=== PATIENT | female | born 1955 ===

== ENCOUNTER 2016-11-02 09:59 | Emergency (ER) | payer MEDICAID, MEDICARE, OTHER ==
[2016-11-02 10:09] VITALS: TEMP 97.8; BMI 21.9
--- NOTE | 2016-11-02 11:12 | ED PDOC ---
Arrival/HPI - General Chief Complaint: High Blood Pressure Time Seen by Provider: 11/02/16 10:25 Historian: Patient - History of Present Illness Narrative History of Present Illness (Text): 11/02/16 11:04 Patient with past medical history of diabetes and hypertension, reports of elevated high blood pressure states that she has not taken her medication enalapril 20 mg x 4 months because she was afraid that her insurance may have run out. Otherwise states that she feels well with no other complaints. Otherwise: (-) chest pain, (-) diaphoresis, (-) dyspnea, (-) headache, (-) dizziness, (-) syncope, (-) nausea, (-) vomiting, (-) calf swelling/pain, (-) neuro deficits. Past Medical History - Provider Review Nursing Documentation Reviewed: Yes - Cardiac Hx Hypertension: Yes - Endocrine/Metabolic Hx Diabetes Mellitus Type 2: Yes - Psychiatric Hx Substance Use: No - Surgical History Hx Hysterectomy: Yes Family/Social History - Physician Review Nursing Documentation Reviewed: Yes Family/Social History: No Known Family HX Smoking Status: Never Smoked Hx Alcohol Use: No Hx Substance Use: No Allergies/Home Meds Allergies/Adverse Reactions: Allergies No Known Allergies Allergy (Verified 11/02/16 10:09) Home Medications: Home Meds Medication Instructions Recorded Confirmed Enalapril Maleate [Vasotec] 20 mg PO DAILY 11/02/16 11/02/16 Insulin Aspart, Recombinant 10 units SC DAILY 11/02/16 11/02/16 [Novolog] Insulin Detemir [Levemir] 35 units SC DAILY 11/02/16 11/02/16 Review of Systems - Review of Systems Constitutional: Normal. absent: Fatigue, Weight Change, Fevers Respiratory: Normal. absent: SOB, Cough, Sputum Cardiovascular: Normal. absent: Chest Pain, Palpitations, Edema Gastrointestinal: Normal. absent: Abdominal Pain, Stool Changes, Constipation Musculoskeletal: Normal, Back Pain (prior back pain). absent: Arthralgias Skin: Normal. absent: Rash, Pruritis, Skin Lesions Neurological: Normal, Headache (prior headache). absent: Dizziness, Focal Weakness Physical Exam - Physical Exam Narrative Physical Exam (Text): 11/02/16 11:12 GENERAL APPEARANCE: Patient is awake, alert, oriented x 3, in no acute distress. SKIN: Warm, dry; (-) cyanosis. EYES: (-) conjunctival pallor. ENMT: Mucous membranes moist. NECK: (-) tenderness, (-) stiffness, (-) lymphadenopathy, (-) JVD. CHEST AND RESPIRATORY: (-) rash, (-) chest wall tenderness. Lungs: (-) rales , (-) rhonchi, (-) wheezes, (-) rub; breath sounds equal bilaterally. HEART AND CARDIOVASCULAR: (-) irregularity; (-) murmur, (-) gallop, (-) rub. ABDOMEN AND GI: Soft; (-) distention, (-) tenderness, (-) palpable pulsatile mass. EXTREMITIES: (-) deformity; (-) edema, (-) calf tenderness. (+) distal pulses. NEURO AND PSYCH: Mental status as above. Cranial nerves grossly intact; strength symmetric. Vital Signs Temp Pulse Resp BP Pulse Ox 11/02/16 11:53 83 16 194/87 H 96 11/02/16 10:04 97.8 F 90 18 204/97 H 99 Medical Decision Making ED Course and Treatment: 11/02/16 11:13 61 yo F with past medical history of diabetes and hypertension, presents with elevated blood pressure, admits to not taking her medication for the past 4 months. Patient medicated with lisinopril 20 mg PO. Repeat BP 194/87 On reevaluation, patient reports that she feels well, denies any headache, dizziness, chest pain, shortness of breath, or palpitations. Based on history and exam, plan will be for outpatient follow-up with PMD. Patient instructed on the importance of being compliant with her blood pressure medication and to avoid long periods of noncompliance as it can cause detrimental effects to her blood pressure which can lead to surgery and complications. Patient states she fully agrees with and understands discharge instructions. States that she agrees with the plan and disposition. Verbalized and repeated discharge instructions and plan. I have given the patient opportunity to ask any additional questions. Follow up with primary care physician in 1-2 days without fail. Advised to take medication as prescribed. Return to the emergency room at any time for any new or worsening symptoms. - Medication Orders Current Medication Orders: Discontinued Medications Lisinopril (Zestril) 20 mg PO STAT STA Stop: 11/02/16 10:45 Last Admin: 11/02/16 10:52 Dose: 20 mg - PA / DATA REPORT ANALYST / Resident Statement / has reviewed & agrees with the documentation as recorded. Disposition/Present on Arrival - Present on Arrival Any Indicators Present on Arrival: No History of DVT/PE: No History of Uncontrolled Diabetes: No Urinary Catheter: No History of Decub. Ulcer: No History Surgical Site Infection Following: None - Disposition Have Diagnosis and Disposition been Completed?: Yes Diagnosis: Hypertension Disposition: HOME/ ROUTINE Disposition Time: 12:08 Patient Plan: Discharge Patient Problems: Current Active Problems Problem Status Onset Hypertension Acute Condition: STABLE Discharge Instructions (ExitCare): Hypertension (ED) Print Language: INDONESIAN Additional Instructions: Thank you for letting us take care of you today. You were treated for hypertension. The emergency medical care you received today was directed at your acute symptoms. If you were prescribed any medication, please fill it and take as directed. It may take several days for your symptoms to resolve. Return to the Emergency Department if your symptoms worsen, do not improve, or if you have any other problems. Please contact your doctor in 2 days for re-evaluation and follow up. Bring any paperwork you were given at discharge with you along with any medications you are taking to your follow up visit. Our treatment cannot replace ongoing medical care by a primary care provider (PCP) outside of the emergency department. Thank you for allowing the [facility] team to be part of your care today. Prescriptions: Enalapril Maleate [Vasotec] 20 mg PO DAILY #30 tab Referrals: Samantha Camargo DO [Primary Care Provider] - Follow up with primary
[2016-11-02 11:57] VITALS: BP 194/87; PULSE 83; RESP 16; O2SAT 96
== END 2016-11-02 12:41 | disposition home or self-care (01) ==
LOC: ED 09:59
DX: I10 Essential (primary) hypertension (principal); E11.9 Type 2 diabetes mellitus without complications

== ENCOUNTER 2016-11-13 18:25 | Inpatient (IN) | payer MEDICARE, MEDICAID, OTHER ==
[2016-11-13 21:02] VITALS: BMI 23.4
[2016-11-13] MEDS ORDERED: Insulin Regular 1 UNITS/0.01 ML ML IVP STA (21:50)
[2016-11-13] MEDS ORDERED: Dextrose 50% SYRINGE Inj (50 ml) IVP ONE (21:50)
[2016-11-13] MEDS ORDERED: Sod Polystyrene Sulf 15 gm/60 ml Oral Susp PO STA (21:50)
[2016-11-13] MEDS ORDERED: Sodium Bicarbonate (8.4%) 50 Meq Syringe IVP ONE (21:50)
[2016-11-13 22:39] LABS: ALB/GLOB RATIO 1.1 (1.1-1.8); BILIRUBIN,TOTAL 0.5 mg/dL (0.2-1.3); CALCIUM 8.3 mg/dL (8.4-10.5); TOTAL PROTEIN 6.8 g/dL (5.8-8.3); TROPONIN I 0.06 ng/mL
[2016-11-13 22:42] LABS: POTASSIUM 5.6 mmol/L (3.6-5.0)
--- NOTE | 2016-11-13 23:25 | CP.PCM.HP ---
<Homa Nieto - Last Filed: 11/14/16 01:52> History of Present Illness - History of Present Illness History of Present Illness: 61 year old Belarusian speaking female with past medical history of hypertension, diabetes, hypercholesterolemia presents to [facility] ED complaining of bilateral lower extremity swelling. Patient reports all of her symptoms started 5 days ago suddenly. Patient also complains of having abdominal discomfort, decreased appetite, shortness of breath and NBNB vomiting. Patient states she was able to walk for a long distance, but now she becomes SOB after walking less than 1 block. Patient sleeps with one pillow at night. Patient states she never had any cardiac testing done except for EKG. In the ED [place] [address], potassium of 5.7, elevated BUN/Cr and hemoglobin of 7.1. Denies headache, weakness, fever, chills, chest pain, orthapnea, diarrhea, blood or black colored stools or urinary symptoms. PMD: Dr. Camargo PMHx: hypertension, diabetes, hypercholesterolemia PSHx: hysterectomy Allergy: NKDA Social: denies tobacco, alcohol or other drug use Family hx: unknown Home meds: enalapril Present on Admission - Present on Admission Any Indicators Present on Admission: No History of DVT/PE: No History of Uncontrolled Diabetes: No Review of Systems - Constitutional Constitutional: As Per HPI. absent: Chills, Fever, Headache, Increased Appetite - EENT Eyes: As Per HPI. absent: Blurred Vision, Change in Vision Ears: As Per HPI. absent: Dizziness Nose/Mouth/Throat: As Per HPI. absent: Epistaxis, Nasal Congestion, Nasal Discharge - Cardiovascular Cardiovascular: As Per HPI, Dyspnea, Leg Edema, Paroxysmal Nocturnal Dyspnea. absent: Chest Pain, Orthopnea, Palpitations, Syncope - Respiratory Respiratory: As Per HPI, Dyspnea, Dyspnea on Exertion. absent: Cough, Wheezing - Gastrointestinal Gastrointestinal: As Per HPI, Abdominal Pain, Nausea, Vomiting. absent: Diarrhea, Heartburn - Genitourinary Genitourinary: As Per HPI. absent: Urinary Frequency, Urinary Hesitance, Urinary Urgency - Musculoskeletal Musculoskeletal: As Per HPI - Integumentary Integumentary: As Per HPI. absent: Dry Skin, Erythema - Neurological Neurological: As Per HPI. absent: Dizziness, Numbness, Loss of Vision, Syncope , Tremor - Psychiatric Psychiatric: As Per HPI. absent: Anxiety, Confusion, Depression - Endocrine Endocrine: As Per HPI - Hematologic/Lymphatic Hematologic: As Per HPI Past Patient History - Past Social History Smoking Status: Never Smoked - CARDIAC Hx Hypertension: Yes - ENDOCRINE/METABOLIC Hx Diabetes Mellitus Type 2: Yes - PSYCHIATRIC Hx Substance Use: No - SURGICAL HISTORY Hx Hysterectomy: Yes Meds Allergies/Adverse Reactions: Allergies Allergy/AdvReac Type Severity Reaction Status Date / Time No Known Allergies Allergy Verified 11/02/16 10:09 Physical Exam - Constitutional Appears: Non-toxic, No Acute Distress - Head Exam Head Exam: ATRAUMATIC, NORMAL INSPECTION, NORMOCEPHALIC - Eye Exam Eye Exam: EOMI, Normal appearance, PERRL - ENT Exam ENT Exam: Mucous Membranes Moist - Neck Exam Neck exam: Positive for: Normal Inspection - Respiratory Exam Respiratory Exam: NORMAL BREATHING PATTERN. absent: Clear to Auscultation Bilateral (diffuse crackles), Wheezes, Respiratory Distress - Cardiovascular Exam Cardiovascular Exam: REGULAR RHYTHM, RRR, +S1, +S2 - GI/Abdominal Exam GI & Abdominal Exam: Normal Bowel Sounds, Soft. absent: Tenderness - Extremities Exam Extremities exam: Positive for: normal capillary refill, pedal edema (trace bilateral LE edema), pedal pulses present - Back Exam Back exam: NORMAL INSPECTION - Neurological Exam Neurological exam: Alert, Oriented x3 - Psychiatric Exam Psychiatric exam: Normal Affect, Normal Mood - Skin Skin Exam: Dry, Intact, Normal Color, Warm Results - Labs Result Diagrams: 11/13/16 20:40 Labs: Laboratory Results - last 24 hr 11/13/16 20:40 Sodium 138 Potassium 5.6 H* Chloride 103 Carbon Dioxide 19 L Anion Gap 22 H BUN 112 H Creatinine 11.0 H* Est GFR ( Amer) 4 Est GFR (Non-Af Amer) 4 Random Glucose 95 Calcium 8.3 L Total Bilirubin 0.5 AST 100 H ALT 145 H Alkaline Phosphatase 123 Lactate Dehydrogenase 909 H Total Creatine Kinase 370 H CK-MB (CK-2) 5.2 H CK-MB (CK-2) % 1.4 L Troponin I 0.06 NT-Pro-B Natriuret Pep 75413 H Total Protein 6.8 Albumin 3.5 Globulin 3.3 Albumin/Globulin Ratio 1.1 Lipase 116 Assessment & Plan - Assessment and Plan (Free Text) Assessment: 61 year old female with past medical history of DM, HTN, hypercholesterolemia was admitted for new onset of CHF, acute renal failure, and hyperkalemia Plan: CHF, new onset -[place] ED [address] -CXR showed vascular congestion -Lasix 120mg IV given at ED -Lasix 80mg IV bid -I's and O's -HOB at 30 degree -Daily weight -O2 NC maintain sat >90% -Troponin 0.06, repeats pending -Cardiology consult, Dr. Batres help appreciated -Follow up echocardiogram Acute renal failure -BUN/Cr 112/11 -Renal ultrasound r/o hydronephrosis -Woods in place -Nephrology consult, Dr. Molina help appreciated -Follow up labs Hyperkalemia -K 5.7 in ED -Kayexalate given -Continue to monitor Anemia -Hgb 7.1 -No transfusion, prevent worsening CHF -Continue to monitor for symptoms DM -ISS -Follow up A1c -Consistent carb diet Hypertension -Hold Enalapril -Hydralazine 10mg prn Prophylactic measures -Pepcid 20mg -Heparin 5000unit SC Q12 <Omid Suero MD - Last Filed: 11/14/16 08:23> Results - Vital Signs Recent Vital Signs: Last Vital Signs Temp 98.3 F 11/14/16 02:43 Pulse 86 11/14/16 02:43 Resp 16 11/14/16 02:43 BP 162/85 H 11/14/16 02:43 Pulse Ox 98 11/14/16 02:43 - Labs Result Diagrams: 11/13/16 20:40 Attending/Attestation - Attestation I have personally seen and examined this patient.: Yes I have fully participated in the care of the patient.: Yes I have reviewed all pertinent clinical information: Yes Notes (Text): 11/14/16 08:11 -I agree with the above H&P completed by the resident physician with the following changes and/or additions: The patient is a 61 year old woman with a history of long standing IDDM, poorly HTN and dyslipidemia who presents with 5-6 days worsening SOB/GONZALEZ, PND, and bilateral lower extremity edema. She denies chest pain, orthopnea, recent travel , F/C, urinary abnormalities, black or bloody stool or cough. In the ED, she was found to have numerous labs abnormalities including, FBI=743, Cr=11.1, K= 5.6 and BNP=57,000. Also, her CXR done in the ED shows evidence of pulmonary edema. A Woods catheter was placed with about 175cc of clear urine returning. Consequently, given her markedly elevated serum Cr alongside clinical evidence of fluid overload, she was given Lasix 120mg IV x 1. Also, for her elevated potassium, she received Kayexalate 30g x 1. Multiple lab orders were placed ( including BMP's, magnesium, phos etc), throughout the night in order to monitor the patient's response to diuresis and the Kayexalate. However, unfortunately, for reasons unclear, the lab was unable to carry out any of the requested lab draws. Her systolic blood pressure has been remained in the 150's (manually checked by me overnight, multiple times). Otherwise, her O2 sats, RR and HR have all remained relatively normal. Strict I/O's, daily weights, cardiology consult, nephrology consult, 2D-echo, renal U/S, urine lytes, urine eosinophils have all been ordered. 11/14/16 08:22
[2016-11-14] MEDS ORDERED: Insulin Lispro (humaLOG) MEDIUM Coverage SC SCH (07:30)
[2016-11-14 08:23] LABS: ADD MANUAL DIFF? NO
[2016-11-14 08:34] LABS: BASO # 0.03 K/mm3 (0.0-2.0); BASO % 0.5 % (0.0-3.0); EOS # 0.1 (0.0-0.7); EOS % 1.8 % (1.5-5.0); GRAN # 3.23 (1.4-6.5); GRAN % 57.9 % (50.0-68.0); LYMPH # 1.8 (1.2-3.4); LYMPH % 32.6 % (22.0-35.0); MEAN CELL VOLUME 71.1 fL (80.0-105.0); MEAN CORPUSCULAR HEMOGLOBIN 25.2 pg (25.0-35.0); MEAN CORPUSCULAR HGB CONC 35.4 g/dl (31.0-37.0); MONO # 0.4 (0.1-0.6); MONO % 7.2 % (1.0-6.0); PLATELET COUNT 174 10^3/uL (120.0-450.0); RED CELL DISTRIBUTION WIDTH 14.8 % (11.5-14.5); WHITE BLOOD COUNT 5.6 10^3/ul (4.5-11.0)
[2016-11-14 08:52] LABS: BILIRUBIN,TOTAL 0.5 mg/dL (0.2-1.3); MAGNESIUM 1.7 mg/dL (1.7-2.2); PHOSPHOROUS 6.5 mg/dL (2.5-4.5); POTASSIUM 5.2 mmol/L (3.6-5.0); TOTAL PROTEIN 6.2 g/dL (5.8-8.3)
[2016-11-14 09:03] LABS: TROPONIN I 0.08 ng/mL
[2016-11-14 09:14] LABS: HEMATOCRIT 18.9 % (36.0-48.0)
--- NOTE | 2016-11-14 09:24 | RAD ---
HISTORY: sob COMPARISON: No prior. FINDINGS: LUNGS: There is a minimal infiltrate at the right lung base. PLEURA: Small bilateral pleural effusions CARDIOVASCULAR: Normal. OSSEOUS STRUCTURES: No significant abnormalities. VISUALIZED UPPER ABDOMEN: Normal. OTHER FINDINGS: None. IMPRESSION: Minimal infiltrate at the right lung base
--- NOTE | 2016-11-14 09:52 | US ---
PROCEDURE: Ultrasound of the Kidneys HISTORY: r/o hydronephrosis COMPARISON: None available. TECHNIQUE: Sonogram of the kidneys. FINDINGS: RIGHT KIDNEY: Measures: 3.9 x 4.4 x 8.0 cm. Normal in size, contour and echogenicity. No stone, solid mass lesion or hydronephrosis visualized. LEFT KIDNEY: Measures: 4.1 x 4.2 x 7.8 cm. Normal in size, contour and echogenicity. No stone, solid mass lesion or hydronephrosis visualized. OTHER FINDINGS: None. IMPRESSION: Unremarkable renal sonogram.
[2016-11-14 09:57] LABS: ARTERIAL BLOOD GAS HCO3 20.3 mmol/L (21-28); ARTERIAL BLOOD GAS O2 CAPACITY 9.5 mL/dl (16-24); ARTERIAL BLOOD GAS PH 7.36 (7.35-7.45); ARTERIAL BLOOD HGB O2 SAT 91.6 % (95.0-98.0); CARBOXYHEMOGLOBIN 1.7 % (0.5-1.5); HHB 5.5 % (0-5); METHEMOGLOBIN 1.1 % (0.0-3.0)
[2016-11-14 10:50] LABS: MEAN CELL VOLUME 71.6 fL (80.0-105.0); MEAN CORPUSCULAR HEMOGLOBIN 24.6 pg (25.0-35.0); MEAN CORPUSCULAR HGB CONC 34.3 g/dl (31.0-37.0); MEAN PLATELET VOLUME 10.3 fl (7.0-11.0); RED CELL DISTRIBUTION WIDTH 14.6 % (11.5-14.5); WHITE BLOOD COUNT 6.4 10^3/ul (4.5-11.0)
[2016-11-14 10:52] LABS: HEMATOCRIT 20.7 % (36.0-48.0)
[2016-11-14] MEDS ORDERED: Lidocaine 2% Inj (20ml) ONE (11:20)
[2016-11-14] MEDS ORDERED: Midazolam 2 MG/2 ML VIAL ONE ×2 (11:21→12:29)
--- NOTE | 2016-11-14 11:57 | CP.PCM.CON ---
History of Present Illness - History of Present Illness History of Present Illness: Initial Nephrology Consultation: Assessment: Appears to have likely ESRD with uremia as with severe anemia, Hyperphosphatemia , NAGMA, fluid overload. Long standing hx of DM, Hypertension no prior labs available to compare Plan Indicated emergent renal replacement therapy at this time. Will plan for HD today as ordered with 2 K bath for 2 hours and ultrafiltration goal of 2Kgs. IR consulted for permacath insertion as likely will need correction dialysis access 1 unit PRBC with HD can be given. decision for iron and DU based upon iron indices Hypertension control with meds as ordered. Hold ACEI/ARB due to hyperkalemia Monitor Input/Output, daily weights and renal function with basic metabolic panel, CBC, phos Check urine analysis, spot protein/creatinine and albumin/creatinine ratio Check for 25-OH vitamin D, iPTH, phosphorus level. anemia work up with TSAT, Ferritin, serum protein electrophoresis Check prelim GN work up as C3, C4, JOSE ALBERTO, Anti dsDNA, ANCA (MPO and AR-3), serum protein electrophoresis with immunofixation, HIV/Hep B and Hep C serology. if all negative, unlikely to pursue invasive work up such as kidney biopsy. Dose meds/antibiotics for reduced GFR. Avoid fleets enema/magnesium based laxatives. Avoid nephrotoxins/NSAIDs/ iodinated contrast (unless needed emergently). Glycemic control. Further work up for as per primary team. d/w team Thanks for allowing me to participate in care of your patient. Will follow patient with you. Please call if any Qs Dr Delroy Miller Office: [phone] Chief Complaint; nausea/vomiting HPI: Pt is a 61 y/o with F hx of diabetes Mellitus ( x 20 years) with retinopathy, hypertension (x 10 years) presented with complaints of nausea/ vomiting, decreased appetite, leg swelling x 5 days. also has SOB on exertion and somewhat decreased urine output. Denies chest pain, palpitation, has shortness of breath, leg swelling Denies blood or bubbles in urine Denies OTC/herbal meds or NSAIDs No recent iodinated contrast exposure. No obvious episodes of low BP. she had poor follow ups with her MD. as per primary team, she used to have very BP in doctors office whenever there. no f/up for last 2 years. ROS: Constitutional Symptoms: Denies fever. No chills. No Recent Weight Changes Eyes: denies change in vision, denies watery eyes, denies double vision Ears/Nose/Mouth/Throat: Denies Abnormal Taste. No Bad breath or Bad Taste. Cardiovascular: No chest pain. There is c/o shortness of breath. No palpitations. Pulmonary: c/o shortness of breath no cough. Gastrointestinal: c/o abdominal pain with nausea and vomiting. Denies change in bowel habits. Denies Bleeding Genitourinary: No Change in force of strain when urinating. c/o decrease in urinary frequency. No pain while urinating. Denies blood in urine. Neurological: Denies headaches. No dizziness. Denies loss of balance. Denies weakness, denies tingling/numbness Dermatological: No Rash or Bruising or ulcers. Psychiatric: Denies Anxiety. No depression. Denies hallucinations. Rheumatological: No joint pain. Denies Joint swelling. c/o leg swelling Endocrine: c/o tiredness and Fatigue and denies Heat/Cold Intolerance. Physical Examination: General Appearance: Comfortable, in no acute respiratory distress, co-operative . Vitals reviewed and noted as below Head; Atraumatic, normocephalic ENT: no ulcers no thrush. Tongue is midline. Oropharynx: no rash or ulcers. EYES: Pupils are equal, round and reactive to light accommodation. Eye muscles and extraocular movement intact. Sclera is anicteric. has pallor+ Neck; supple no lymphadenopathy, no thyromegaly or bruit Lungs: Normal respiratory rate/effort. Breath sounds bilateral basal crackles + Heart: Normal rate. s1s2 normal. No rub or gallop. Extremities: no to trace edema. No varicose veins Neurological: Patient is alert, awake and oriented to person, place and time. No focal deficit. Strength bilateral appropriate and equal Skin: Warm and dry. Normal turgor. No rash. Palpitation: Normal elasticity for age Abdomen: Abdomen is soft. Bowel sounds +. There is no abdominal tenderness, no guarding/rigidity or organomegaly Psych: normal insight and normal affect/mood MSK: no joint tenderness or swelling. Digits and nails normal, no deformity : kidney or bladder not palpable Labs/imaging reviewed. Past medical history, past surgical history, family history, social history, allergy reviewed and noted as below work up: CPK 313 Alb 3.2 Hb 6.7 Phos 6.5 CXR: minimal infiltrate at base sono: Rt kidney 7.9 cm and left 7.c cm Past Patient History - Past Social History Smoking Status: Never Smoked - CARDIAC Hx Hypertension: Yes - ENDOCRINE/METABOLIC Hx Diabetes Mellitus Type 2: Yes - PSYCHIATRIC Hx Substance Use: No - SURGICAL HISTORY Hx Hysterectomy: Yes Meds Allergies/Adverse Reactions: Allergies Allergy/AdvReac Type Severity Reaction Status Date / Time No Known Allergies Allergy Verified 11/02/16 10:09 - Medications Medications: Current Medications Aspirin (Aspirin Chewable) 81 mg PO DAILY [facility] Last Admin: 11/14/16 10:30 Dose: 81 mg Famotidine (Pepcid) 20 mg IVP DAILY [facility] Last Admin: 11/14/16 10:30 Dose: 20 mg Furosemide (Lasix) 40 mg IVP BID [facility] Heparin Sodium (Porcine) (Heparin) 5,000 units SC Q12 [place] PRN Reason: Protocol Last Admin: 11/14/16 10:30 Dose: Not Given Hydralazine HCl (Apresoline) 10 mg IVP Q6 PRN PRN Reason: Systolic Blood Pressure Insulin Human Lispro (Humalog Med) 0 units SC ACHS [place] PRN Reason: Protocol Vitamin B Complex/Vit C/Folic Acid (Nephro-Mini) 1 tab PO DAILY [facility] Results - Vital Signs Recent Vital Signs: Last Vital Signs Temp 98.0 F 11/14/16 09:01 Pulse 76 11/14/16 11:00 Resp 16 11/14/16 11:00 BP 161/85 H 11/14/16 11:00 Pulse Ox 100 11/14/16 11:00 - Labs Result Diagrams: 11/14/16 08:15 11/14/16 08:15 Labs: Laboratory Results - last 24 hr 11/14/16 11/14/16 11/14/16 02:35 08:15 08:15 WBC 5.6 RBC 2.66 L Hgb 6.7 L* Hct 18.9 L* MCV 71.1 L MCH 25.2 MCHC 35.4 RDW 14.8 H Plt Count 174 MPV 10.0 Gran % 57.9 Lymph % (Auto) 32.6 Gilchrist % (Auto) 7.2 H Eos % (Auto) 1.8 Baso % (Auto) 0.5 Gran # 3.23 Lymph # 1.8 Gilchrist # 0.4 Eos # 0.1 Baso # 0.03 pCO2 pO2 HCO3 ABG pH ABG Total CO2 ABG O2 Saturation ABG O2 Content ABG Base Excess ABG Hemoglobin ABG Carboxyhemoglobin POC ABG HHb (Measured) ABG Methemoglobin ABG O2 Capacity Hgb O2 Saturation FiO2 Sodium Potassium Chloride Carbon Dioxide Anion Gap BUN Creatinine Est GFR ( Amer) Est GFR (Non-Af Amer) Random Glucose Calcium Phosphorus Magnesium Total Bilirubin AST ALT Alkaline Phosphatase Lactate Dehydrogenase Total Creatine Kinase CK-MB (CK-2) CK-MB (CK-2) % Troponin I Total Protein Albumin Globulin Albumin/Globulin Ratio Triglycerides Cholesterol LDL Cholesterol Direct HDL Cholesterol TSH 3rd Generation 2.89 Ur Random Creatinine 45 Ur Random Sodium 104 Blood Type Blood Type Confirm Antibody Screen Crossmatch BBK History Checked 11/14/16 11/14/16 11/14/16 08:15 09:50 10:04 WBC RBC Hgb Hct MCV MCH MCHC RDW Plt Count MPV Gran % Lymph % (Auto) Gilchrist % (Auto) Eos % (Auto) Baso % (Auto) Gran # Lymph # Gilchrist # Eos # Baso # pCO2 36 pO2 59.0 L HCO3 20.3 L ABG pH 7.36 ABG Total CO2 21.4 L ABG O2 Saturation 94.3 L ABG O2 Content 9.0 L ABG Base Excess -4.7 L ABG Hemoglobin 6.9 L ABG Carboxyhemoglobin 1.7 H POC ABG HHb (Measured) 5.5 H ABG Methemoglobin 1.1 ABG O2 Capacity 9.5 L Hgb O2 Saturation 91.6 L FiO2 21.0 Sodium 141 Potassium 5.2 H Chloride 107 Carbon Dioxide 19 L Anion Gap 20 BUN 111 H Creatinine 11.1 H* Est GFR ( Amer) 4 Est GFR (Non-Af Amer) 3 Random Glucose 70 Calcium 8.0 L Phosphorus 6.5 H Magnesium 1.7 Total Bilirubin 0.5 AST 69 H ALT 120 H Alkaline Phosphatase 107 Lactate Dehydrogenase 715 H Total Creatine Kinase 313 H CK-MB (CK-2) 4.2 H CK-MB (CK-2) % 1.3 L Troponin I 0.08 D Total Protein 6.2 Albumin 3.2 Globulin 3.1 Albumin/Globulin Ratio 1.0 L Triglycerides 82 Cholesterol 145 LDL Cholesterol Direct 75 HDL Cholesterol 36 TSH 3rd Generation Ur Random Creatinine Ur Random Sodium Blood Type A POSITIVE Blood Type Confirm Antibody Screen Negative Crossmatch See Detail BBK History Checked No verified bt 11/14/16 10:25 WBC RBC Hgb Hct MCV MCH MCHC RDW Plt Count MPV Gran % Lymph % (Auto) Gilchrist % (Auto) Eos % (Auto) Baso % (Auto) Gran # Lymph # Gilchrist # Eos # Baso # pCO2 pO2 HCO3 ABG pH ABG Total CO2 ABG O2 Saturation ABG O2 Content ABG Base Excess ABG Hemoglobin ABG Carboxyhemoglobin POC ABG HHb (Measured) ABG Methemoglobin ABG O2 Capacity Hgb O2 Saturation FiO2 Sodium Potassium Chloride Carbon Dioxide Anion Gap BUN Creatinine Est GFR ( Amer) Est GFR (Non-Af Amer) Random Glucose Calcium Phosphorus Magnesium Total Bilirubin AST ALT Alkaline Phosphatase Lactate Dehydrogenase Total Creatine Kinase CK-MB (CK-2) CK-MB (CK-2) % Troponin I Total Protein Albumin Globulin Albumin/Globulin Ratio Triglycerides Cholesterol LDL Cholesterol Direct HDL Cholesterol TSH 3rd Generation Ur Random Creatinine Ur Random Sodium Blood Type Blood Type Confirm A POSITIVE Antibody Screen Crossmatch BBK History Checked
--- NOTE | 2016-11-14 13:59 | CP.PCM.PN ---
<Darlin Donaldson - Last Filed: 11/14/16 13:56> Subjective - Date & Time of Evaluation Date of Evaluation: 11/14/16 Time of Evaluation: 13:56 - Subjective Subjective: HOSPITALISTS PROGRESS NOTE Pt is seen and examined. Patient is admitted for acute CHF exacerbation, found to be in renal failure and anemic with repeat Hgb at 6.7. Communicated with patient through a geotechnical field technician. At time of examination, patient is resting comfortably. Denies having any CP, SOB, abd pain, N/V/D/C, urinary complaints. Patient states she had bowel movement while in ED and she has jerry in place draining light yellow urine. Patient is tolerating diet. Objective - Vital Signs/Intake and Output Vital Signs (last 24 hours): Temp Pulse Resp BP Pulse Ox 97.7 F 75 23 152/79 H 98 11/14/16 13:02 11/14/16 13:47 11/14/16 13:47 11/14/16 13:47 11/14/16 13:47 Intake and Output: 11/14/16 11/14/16 06:59 18:59 Output Total 425 Balance -425 - Medications Medications: Current Medications Acetaminophen (Tylenol 325mg Tab) 650 mg PO Q4 PRN PRN Reason: Pain, Mild (1-3) Aspirin (Aspirin Chewable) 81 mg PO DAILY [facility] Last Admin: 11/14/16 10:30 Dose: 81 mg Famotidine (Pepcid) 20 mg IVP DAILY [facility] Last Admin: 11/14/16 10:30 Dose: 20 mg Furosemide (Lasix) 40 mg IVP BID [facility] Heparin Sodium (Porcine) (Heparin) 5,000 units SC Q12 [facility] PRN Reason: Protocol Last Admin: 11/14/16 10:30 Dose: Not Given Hydralazine HCl (Apresoline) 10 mg IVP Q6 PRN PRN Reason: Systolic Blood Pressure Insulin Human Lispro (Humalog Med) 0 units SC ACHS [facility] PRN Reason: Protocol Vitamin B Complex/Vit C/Folic Acid (Nephro-Mini) 1 tab PO DAILY [facility] - Labs Labs: 11/14/16 08:15 11/14/16 08:15 - Constitutional Appears: Non-toxic, No Acute Distress - Head Exam Head Exam: ATRAUMATIC - Eye Exam Eye Exam: EOMI - ENT Exam ENT Exam: Mucous Membranes Moist - Respiratory Exam Respiratory Exam: Rales (Diffusely ). absent: Rhonchi, Wheezes - Cardiovascular Exam Cardiovascular Exam: REGULAR RHYTHM, +S1, +S2. absent: Gallop, Rubs, Murmur - GI/Abdominal Exam GI & Abdominal Exam: Soft, Normal Bowel Sounds. absent: Distended, Firm, Guarding, Rigid, Tenderness - Extremities Exam Extremities Exam: Pedal Edema (1+ LE edema) - Neurological Exam Neurological Exam: Alert, Awake, Oriented x3 - Psychiatric Exam Psychiatric exam: Normal Affect, Normal Mood - Skin Skin Exam: Dry, Intact, Normal Color, Warm Assessment and Plan - Assessment and Plan (Free Text) Assessment: 61 year old female with past medical history of DM, HTN, hypercholesterolemia is admitted for new onset of CHF, acute renal failure, and hyperkalemia[place] [address]. CXR on admission showed vascular congestion. Initial trops are .[address] changes noted on EKG. K+ on admission was 5.6. Repeat K+ level after treatment given was 5.2. Patient presented with BUN of 112 and Cr of 11.0. After speaking with patient's PMD, patient had Cr function of 1.9 about 2 years ago. Apparently, patient has not had follow up for about 2 years. Medications 2 years ago included: Coreg 6.25 mg po qd, ferrous sulfate 324 mg po qd, novolog 8 units tid, levemir. Plan: CHF, new onset - Patient received Lasix 120 mg IVP in ED. Will start patient on Lasix 40 mg IV BID -I's and O's -HOB at 30 degree -Daily weight -O2 NC maintain sat >90% -Cardiology consult, Dr. Batres help appreciated -Follow up echocardiogram Acute renal failure -BUN/Cr 112/11 - Nephrology, Dr. Berman is consulted. - Per nephrology recs, patient is taken for permcath placement today. Patient will go for HD today. -Renal ultrasound r/o hydronephrosis - will follow up renal studies Hyperkalemia -Patient did not have any EKg changes noted - Patient received kayexelate in ED. She also received insulin stat dose along with bicarb and lasix. - repeat K+ was 5.2 - Patient will go HD today -Continue to monitor Anemia - Stool occult at bedside was negative. - patient will receive 1 unit PRBC transfusion after permcath placement. - will check repeat CBC this evening - Will check iron studies and vit B12 and folate - Will wait to restart patient's home medication ferrous sulfate. DM -ISS -Follow up A1c and lipid panel -Consistent carb diet Hypertension -Hold Enalapril -Hydralazine 10mg prn. Patient used ot take coreg 6.25 mg po qd. will continue this medication. Hep C infection -Patient will be given information upon discharge for follow up outpatient with GI specialist at [place] Prophylactic measures -Pepcid 20mg -Heparin 5000unit SC Q12 Case discussed with attending, Dr. Valadez <Lavon Valadez - Last Filed: 11/14/16 17:10> Objective - Vital Signs/Intake and Output Vital Signs (last 24 hours): Temp Pulse Resp BP Pulse Ox 98.4 F 79 31 H 158/78 H 93 L 11/14/16 16:52 11/14/16 16:52 11/14/16 16:52 11/14/16 16:52 11/14/16 15:47 Intake and Output: 11/14/16 11/14/16 06:59 18:59 Output Total 425 Balance -425 - Medications Medications: Current Medications Acetaminophen (Tylenol 325mg Tab) 650 mg PO Q4 PRN PRN Reason: Pain, Mild (1-3) Last Admin: 11/14/16 14:06 Dose: 650 mg Carvedilol (Coreg) 6.25 mg PO DAILY [facility] Famotidine (Pepcid) 20 mg IVP DAILY [facility] Last Admin: 11/14/16 10:30 Dose: 20 mg Furosemide (Lasix) 40 mg IVP BID [facility] Heparin Sodium (Porcine) (Heparin) 5,000 units SC Q12 [facility] PRN Reason: Protocol Last Admin: 11/14/16 10:30 Dose: Not Given Hydralazine HCl (Apresoline) 10 mg IVP Q6 PRN PRN Reason: Systolic Blood Pressure Insulin Human Lispro (Humalog Med) 0 units SC ACHS [facility] PRN Reason: Protocol Pneumococcal Polyvalent Vaccine (Pneumovax 23 Vaccine) 0.5 ml IM .ONCE ONE Stop: 11/14/16 17:04 Vitamin B Complex/Vit C/Folic Acid (Nephro-Mini) 1 tab PO DAILY [facility] - Labs Labs: 11/14/16 08:15 11/14/16 08:15 Attending/Attestation - Attestation I have personally seen and examined this patient.: Yes I have fully participated in the care of the patient.: Yes I have reviewed all pertinent clinical information, including history, physical exam and plan: Yes Notes (Text): 11/14/16 17:05 Attending note; Patient seen and examined with resident in ER. Patient's grandson by the bedside. History by Liberian-speaking medical staff. Patient is a 61 year old female with past medical history of DM, HTN, hypercholesterolemia is admitted for new onset of CHF, acute renal failure, and hyperkalemia[place] [address]. CXR on admission showed vascular congestion. EKG showed no peaked T waves or QRS widening .Treated with insulin/bicarbonate and Kayexalate. Patient was given IV Lasix with good diuresis. Patient will get dialysis catheter placement by IR. Planned for Hemodialysis today. Anemia; no active bleeding. Baseline hemoglobin was 10 in 2015. We'll transfuse 1 unit of PRBC during dialysis. Anemia workup ordered. Stool for occult blood ordered. Elevated BNP; history of uncontrolled blood pressure. Echocardiogram ordered. Cardiology evaluation requested. History of CAD; creatinine was 1.9 in July [address] Camargo's office. Patient is noncompliant with follow-up. Did not take hypertensive or diabetic medication over 2 years. Stayed in [facility] for about a year. Came back to [facility] recently. The diagnosis, treatment plan discussed with patient in detail. Upon discharge the patient will follow up with PMD Dr. Camargo.
--- NOTE | 2016-11-14 14:33 | VASCULAR ---
PROCEDURE: Ultrasound and fluoroscopic tunneled right IJ dialysis catheter. CLINICAL HISTORY: ESRD PHYSICIAN(S): Ismael Boggs M.D. TECHNIQUE: The relative risks and indications for the procedure were explained through a electronic news gathering camera person to the patient and informed written consent obtained. The patient was placed supine on the arteriography table and the right neck/chest was prepped and draped in the usual sterile fashion. 1% Xylocaine was used to anesthetize the skin and soft tissues at the puncture site. Conscious sedation and monitoring were provided throughout the procedure by a nurse. Under direct ultrasound guidance, the rightinternal jugular vein was punctured with a micropuncture set. A 0.035 Glidewire was advanced into the IVC. Sequential dilatation was performed with subsequent placement of a 24 cmCannon II catheter with its tip in the right atrium. A retrograde tunnel below the right clavicle was performed. The catheter was trimmed and the hub attached. Both ports aspirate and inject easily. The catheter was secured and a dressing applied. The patient tolerated the procedure well. IMPRESSION: 1. Ultrasound and fluoroscopically placed right IJ tunneled dialysis catheter.
[2016-11-14] MEDS ORDERED: Pneumococcal 23-Valent Vaccine IM ONE (17:03)
[2016-11-14] MEDS: Insulin Lispro (humaLOG) MEDIUM Coverage SC SCH ×2 (17:47→22:00)
--- NOTE | 2016-11-14 18:06 | CP.PCM.CON ---
<Jabari Aguirre - Last Filed: 11/14/16 18:02> History of Present Illness - History of Present Illness History of Present Illness: Jabari Aguirre D.O. PGY-1, Internal Medicine Resident, ICU Consult Note 61 year old [place]i female with a longstanding history of DM, HTN, and HLD who presented to [facility] on 11/13/16 with complaints of shortness of breath, weakness and leg swelling. Patient states that her SOB had been progressively getting worse and while she used to be able to walk around without difficulty she's noticed she can't do much anymore. Patient estimates she can maybe walk a block before she gets tired. Patient states that over the last week now her legs have also gotten swollen and she's noticed she's just fatigued and unable to do very much. Patient's legs continued to swell. Patient had some nausea and NBNB emesis over the last couple of days as well and this all made her worried so she came in. PMD: Dr. Camargo PMH: as above PSH: hysterectomy SH: denies all FH: denies Meds: reviewed Allergies: NKA Review of Systems - Constitutional Constitutional: absent: Anorexia, Chills - EENT Eyes: absent: Blind Spots, Blurred Vision Ears: absent: Decreased Hearing, Ear Discharge Nose/Mouth/Throat: absent: Epistaxis, Nasal Congestion - Cardiovascular Cardiovascular: absent: Chest Pain, Diaphoresis - Respiratory Respiratory: Dyspnea, Dyspnea on Exertion - Gastrointestinal Gastrointestinal: absent: Nausea (resolved), Vomiting - Genitourinary Genitourinary: absent: Dysuria, Hematuria - Musculoskeletal Musculoskeletal: absent: Numbness, Stiffness - Integumentary Integumentary: absent: Pruritus, Rash - Neurological Neurological: absent: Confusion, Focal Weakness Past Patient History - Past Social History Smoking Status: Never Smoked - CARDIAC Hx Hypercholesterolemia: Yes Hx Hypertension: Yes - RENAL Date of Last Dialysis Treatment: 11/14/16 - ENDOCRINE/METABOLIC Hx Diabetes Mellitus Type 2: Yes - MUSCULOSKELETAL/RHEUMATOLOGICAL Hx Falls: No - GASTROINTESTINAL Hx Gastrointestinal Disorders: Yes (constipation) - GENITOURINARY/GYNECOLOGICAL Other/Comment: mammogram 08/23/15, bone density - PSYCHIATRIC Hx Substance Use: No - SURGICAL HISTORY Hx Hysterectomy: Yes Other/Comment: insertion of rcw permacath today for hd Meds Allergies/Adverse Reactions: Allergies Allergy/AdvReac Type Severity Reaction Status Date / Time No Known Allergies Allergy Verified 11/02/16 10:09 - Medications Medications: Current Medications Acetaminophen (Tylenol 325mg Tab) 650 mg PO Q4 PRN PRN Reason: Pain, Mild (1-3) Last Admin: 11/14/16 14:06 Dose: 650 mg Carvedilol (Coreg) 6.25 mg PO DAILY [facility] Famotidine (Pepcid) 20 mg IVP DAILY [facility] Last Admin: 11/14/16 10:30 Dose: 20 mg Furosemide (Lasix) 40 mg IVP BID [facility] Last Admin: 11/14/16 17:58 Dose: Not Given Heparin Sodium (Porcine) (Heparin) 5,000 units SC Q12 [facility] PRN Reason: Protocol Last Admin: 11/14/16 10:30 Dose: Not Given Hydralazine HCl (Apresoline) 10 mg IVP Q6 PRN PRN Reason: Systolic Blood Pressure Insulin Human Lispro (Humalog Med) 0 units SC ACHS [facility] PRN Reason: Protocol Last Admin: 11/14/16 17:47 Dose: Not Given Vitamin B Complex/Vit C/Folic Acid (Nephro-Darlene) 1 tab PO DAILY [facility] Physical Exam - Constitutional Additional comments: well developed, appears older than stated age, pleasant [place]i female in NAD - Head Exam Head Exam: ATRAUMATIC, NORMOCEPHALIC - Eye Exam Eye Exam: EOMI, PERRL. absent: Conjunctival injection, Scleral icterus - ENT Exam ENT Exam: Mucous Membranes Moist, Normal Oropharynx - Neck Exam Neck exam: Positive for: Normal Inspection. Negative for: Tenderness Additional comments: right chest wall portcath, covered in gauze, connected to dialysis machine at this time - Respiratory Exam Respiratory Exam: Clear to Auscultation Bilateral. absent: Rales, Rhonchi, Wheezes - Cardiovascular Exam Cardiovascular Exam: RRR, +S1, +S2. absent: Gallop, Rubs - GI/Abdominal Exam GI & Abdominal Exam: Normal Bowel Sounds, Soft. absent: Distended, Tenderness - Extremities Exam Extremities exam: Positive for: normal capillary refill. Negative for: calf tenderness, joint swelling, pedal edema - Neurological Exam Neurological exam: Alert, CN II-XII Intact, Oriented x3 - Skin Skin Exam: Dry, Warm Results - Vital Signs Recent Vital Signs: Last Vital Signs Temp 98.4 F 11/14/16 17:50 Pulse 76 11/14/16 17:50 Resp 19 11/14/16 17:50 BP 170/87 H 11/14/16 17:58 Pulse Ox 99 11/14/16 17:15 - Labs Result Diagrams: 11/14/16 08:15 11/14/16 08:15 Labs: Laboratory Results - last 24 hr 11/14/16 11/14/16 11/14/16 02:35 08:15 08:15 WBC 5.6 RBC 2.66 L Hgb 6.7 L* Hct 18.9 L* MCV 71.1 L MCH 25.2 MCHC 35.4 RDW 14.8 H Plt Count 174 MPV 10.0 Gran % 57.9 Lymph % (Auto) 32.6 Morton % (Auto) 7.2 H Eos % (Auto) 1.8 Baso % (Auto) 0.5 Gran # 3.23 Lymph # 1.8 Morton # 0.4 Eos # 0.1 Baso # 0.03 pCO2 pO2 HCO3 ABG pH ABG Total CO2 ABG O2 Saturation ABG O2 Content ABG Base Excess ABG Hemoglobin ABG Carboxyhemoglobin POC ABG HHb (Measured) ABG Methemoglobin ABG O2 Capacity Hgb O2 Saturation FiO2 Sodium Potassium Chloride Carbon Dioxide Anion Gap BUN Creatinine Est GFR ( Amer) Est GFR (Non-Af Amer) Random Glucose Calcium Phosphorus Magnesium Total Bilirubin AST ALT Alkaline Phosphatase Lactate Dehydrogenase Total Creatine Kinase CK-MB (CK-2) CK-MB (CK-2) % Troponin I Total Protein Albumin Globulin Albumin/Globulin Ratio Triglycerides Cholesterol LDL Cholesterol Direct HDL Cholesterol TSH 3rd Generation 2.89 Ur Random Creatinine 45 Ur Random Sodium 104 Stool Occult Blood Blood Type Blood Type Confirm Antibody Screen Crossmatch BBK History Checked 11/14/16 11/14/16 11/14/16 08:15 09:50 10:04 WBC RBC Hgb Hct MCV MCH MCHC RDW Plt Count MPV Gran % Lymph % (Auto) Morton % (Auto) Eos % (Auto) Baso % (Auto) Gran # Lymph # Morton # Eos # Baso # pCO2 36 pO2 59.0 L HCO3 20.3 L ABG pH 7.36 ABG Total CO2 21.4 L ABG O2 Saturation 94.3 L ABG O2 Content 9.0 L ABG Base Excess -4.7 L ABG Hemoglobin 6.9 L ABG Carboxyhemoglobin 1.7 H POC ABG HHb (Measured) 5.5 H ABG Methemoglobin 1.1 ABG O2 Capacity 9.5 L Hgb O2 Saturation 91.6 L FiO2 21.0 Sodium 141 Potassium 5.2 H Chloride 107 Carbon Dioxide 19 L Anion Gap 20 BUN 111 H Creatinine 11.1 H* Est GFR ( Amer) 4 Est GFR (Non-Af Amer) 3 Random Glucose 70 Calcium 8.0 L Phosphorus 6.5 H Magnesium 1.7 Total Bilirubin 0.5 AST 69 H ALT 120 H Alkaline Phosphatase 107 Lactate Dehydrogenase 715 H Total Creatine Kinase 313 H CK-MB (CK-2) 4.2 H CK-MB (CK-2) % 1.3 L Troponin I 0.08 D Total Protein 6.2 Albumin 3.2 Globulin 3.1 Albumin/Globulin Ratio 1.0 L Triglycerides 82 Cholesterol 145 LDL Cholesterol Direct 75 HDL Cholesterol 36 TSH 3rd Generation Ur Random Creatinine Ur Random Sodium Stool Occult Blood Blood Type A POSITIVE Blood Type Confirm Antibody Screen Negative Crossmatch See Detail BBK History Checked No verified bt 11/14/16 11/14/16 10:25 10:30 WBC RBC Hgb Hct MCV MCH MCHC RDW Plt Count MPV Gran % Lymph % (Auto) Morton % (Auto) Eos % (Auto) Baso % (Auto) Gran # Lymph # Morton # Eos # Baso # pCO2 pO2 HCO3 ABG pH ABG Total CO2 ABG O2 Saturation ABG O2 Content ABG Base Excess ABG Hemoglobin ABG Carboxyhemoglobin POC ABG HHb (Measured) ABG Methemoglobin ABG O2 Capacity Hgb O2 Saturation FiO2 Sodium Potassium Chloride Carbon Dioxide Anion Gap BUN Creatinine Est GFR ( Amer) Est GFR (Non-Af Amer) Random Glucose Calcium Phosphorus Magnesium Total Bilirubin AST ALT Alkaline Phosphatase Lactate Dehydrogenase Total Creatine Kinase CK-MB (CK-2) CK-MB (CK-2) % Troponin I Total Protein Albumin Globulin Albumin/Globulin Ratio Triglycerides Cholesterol LDL Cholesterol Direct HDL Cholesterol TSH 3rd Generation Ur Random Creatinine Ur Random Sodium Stool Occult Blood Negative Blood Type Blood Type Confirm A POSITIVE Antibody Screen Crossmatch BBK History Checked Assessment & Plan - Assessment and Plan (Free Text) Assessment: 61 year old [place]i female with a longstanding history of DM, HTN, and HLD who presented to [facility] ER on 11/13/16 with complaints of shortness of breath, weakness and leg swelling, found to have acute renal failure likely ESRD and severe anemia who will be undergoing dialysis for the first time starting now. Plan: Neurological AAOx4, protecting airway, nonfocal Cardiovascular Hemodynamically stable Hx HTN but holding antihypertensives (vasotec) as new renal failure New onset CHF, cardio following, continue coreg, lasix, PRN hydralazine Echo pending Pulmonary CTAB, no crackles now, keep O2Sat >92% HOB 45 Renal/ Fluids / Electrolytes Nephro following, permacath placed today by IR, starting dialysis now in ICU under our direct monitoring, strict IxOs Hyperkalemia improved, will repeat CMP tomorrow AM now that doing dialysis Workup for acute failure currently pending On nephro-darlene GI Carb consistent diet Mild transaminitis, hep panel and other workup underway Infectious disease Afebrile, no leukocytosis, HIV pending Hematology/Oncology Hgb low, transfusion running now with dialysis, workup pending Endocrine Maintain euglycemia, on accuchecks and insulin sliding scale TSH wnl Prophylaxis PPI/SCDs/heparin Patient was seen and examined and case was discussed at length with attending physician. - Date & Time Date: 11/14/16 Time: 18:05 <Joanie MCCORMICK,Audrey H - Last Filed: 11/14/16 18:38> Meds - Medications Medications: Current Medications Acetaminophen (Tylenol 325mg Tab) 650 mg PO Q4 PRN PRN Reason: Pain, Mild (1-3) Last Admin: 11/14/16 14:06 Dose: 650 mg Carvedilol (Coreg) 6.25 mg PO DAILY [facility] Famotidine (Pepcid) 20 mg IVP DAILY [facility] Last Admin: 11/14/16 10:30 Dose: 20 mg Furosemide (Lasix) 40 mg IVP BID [facility] Last Admin: 11/14/16 17:58 Dose: Not Given Heparin Sodium (Porcine) (Heparin) 5,000 units SC Q12 [facility] PRN Reason: Protocol Last Admin: 11/14/16 10:30 Dose: Not Given Hydralazine HCl (Apresoline) 10 mg IVP Q6 PRN PRN Reason: Systolic Blood Pressure Insulin Human Lispro (Humalog Med) 0 units SC ACHS [facility] PRN Reason: Protocol Last Admin: 11/14/16 17:47 Dose: Not Given Vitamin B Complex/Vit C/Folic Acid (Nephro-Darlene) 1 tab PO DAILY [facility] Results - Vital Signs Recent Vital Signs: Last Vital Signs Temp 98.4 F 11/14/16 18:26 Pulse 76 11/14/16 18:27 Resp 19 11/14/16 18:27 BP 183/101 H 11/14/16 18:27 Pulse Ox 100 11/14/16 18:27 - Labs Result Diagrams: 11/14/16 08:15 11/14/16 08:15 Labs: Laboratory Results - last 24 hr 11/14/16 11/14/16 11/14/16 02:35 08:15 08:15 WBC 5.6 RBC 2.66 L Hgb 6.7 L* Hct 18.9 L* MCV 71.1 L MCH 25.2 MCHC 35.4 RDW 14.8 H Plt Count 174 MPV 10.0 Gran % 57.9 Lymph % (Auto) 32.6 Morton % (Auto) 7.2 H Eos % (Auto) 1.8 Baso % (Auto) 0.5 Gran # 3.23 Lymph # 1.8 Morton # 0.4 Eos # 0.1 Baso # 0.03 pCO2 pO2 HCO3 ABG pH ABG Total CO2 ABG O2 Saturation ABG O2 Content ABG Base Excess ABG Hemoglobin ABG Carboxyhemoglobin POC ABG HHb (Measured) ABG Methemoglobin ABG O2 Capacity Hgb O2 Saturation FiO2 Sodium Potassium Chloride Carbon Dioxide Anion Gap BUN Creatinine Est GFR ( Amer) Est GFR (Non-Af Amer) Random Glucose Calcium Phosphorus Magnesium Total Bilirubin AST ALT Alkaline Phosphatase Lactate Dehydrogenase Total Creatine Kinase CK-MB (CK-2) CK-MB (CK-2) % Troponin I Total Protein Albumin Globulin Albumin/Globulin Ratio Triglycerides Cholesterol LDL Cholesterol Direct HDL Cholesterol TSH 3rd Generation 2.89 Ur Random Creatinine 45 Ur Random Sodium 104 Stool Occult Blood Blood Type Blood Type Confirm Antibody Screen Crossmatch BBK History Checked 11/14/16 11/14/16 11/14/16 08:15 09:50 10:04 WBC RBC Hgb Hct MCV MCH MCHC RDW Plt Count MPV Gran % Lymph % (Auto) Morton % (Auto) Eos % (Auto) Baso % (Auto) Gran # Lymph # Morton # Eos # Baso # pCO2 36 pO2 59.0 L HCO3 20.3 L ABG pH 7.36 ABG Total CO2 21.4 L ABG O2 Saturation 94.3 L ABG O2 Content 9.0 L ABG Base Excess -4.7 L ABG Hemoglobin 6.9 L ABG Carboxyhemoglobin 1.7 H POC ABG HHb (Measured) 5.5 H ABG Methemoglobin 1.1 ABG O2 Capacity 9.5 L Hgb O2 Saturation 91.6 L FiO2 21.0 Sodium 141 Potassium 5.2 H Chloride 107 Carbon Dioxide 19 L Anion Gap 20 BUN 111 H Creatinine 11.1 H* Est GFR ( Amer) 4 Est GFR (Non-Af Amer) 3 Random Glucose 70 Calcium 8.0 L Phosphorus 6.5 H Magnesium 1.7 Total Bilirubin 0.5 AST 69 H ALT 120 H Alkaline Phosphatase 107 Lactate Dehydrogenase 715 H Total Creatine Kinase 313 H CK-MB (CK-2) 4.2 H CK-MB (CK-2) % 1.3 L Troponin I 0.08 D Total Protein 6.2 Albumin 3.2 Globulin 3.1 Albumin/Globulin Ratio 1.0 L Triglycerides 82 Cholesterol 145 LDL Cholesterol Direct 75 HDL Cholesterol 36 TSH 3rd Generation Ur Random Creatinine Ur Random Sodium Stool Occult Blood Blood Type A POSITIVE Blood Type Confirm Antibody Screen Negative Crossmatch See Detail BBK History Checked No verified bt 11/14/16 11/14/16 10:25 10:30 WBC RBC Hgb Hct MCV MCH MCHC RDW Plt Count MPV Gran % Lymph % (Auto) Morton % (Auto) Eos % (Auto) Baso % (Auto) Gran # Lymph # Morton # Eos # Baso # pCO2 pO2 HCO3 ABG pH ABG Total CO2 ABG O2 Saturation ABG O2 Content ABG Base Excess ABG Hemoglobin ABG Carboxyhemoglobin POC ABG HHb (Measured) ABG Methemoglobin ABG O2 Capacity Hgb O2 Saturation FiO2 Sodium Potassium Chloride Carbon Dioxide Anion Gap BUN Creatinine Est GFR ( Amer) Est GFR (Non-Af Amer) Random Glucose Calcium Phosphorus Magnesium Total Bilirubin AST ALT Alkaline Phosphatase Lactate Dehydrogenase Total Creatine Kinase CK-MB (CK-2) CK-MB (CK-2) % Troponin I Total Protein Albumin Globulin Albumin/Globulin Ratio Triglycerides Cholesterol LDL Cholesterol Direct HDL Cholesterol TSH 3rd Generation Ur Random Creatinine Ur Random Sodium Stool Occult Blood Negative Blood Type Blood Type Confirm A POSITIVE Antibody Screen Crossmatch BBK History Checked Attending/Attestation - Attestation I have personally seen and examined this patient.: Yes I have fully participated in the care of the patient.: Yes I have reviewed all pertinent clinical information: Yes Notes (Text): 11/14/16 18:35 61 y/o F w/ New Acute Renal failure requiring HD Elevated BUN and creatnine, Hyperkalemia Seen by Nephrology and Permacath placed R, HD to bein in ICU No acute resp failure, speaking [place] in no distress. Will receive 1 unit PRBC due to low HGB likely due to RF, no blood loss noted. Hypertensive. F/U post HD labs monitor for Disequilibrium . dvt p heparin sq tid cc time 45 min benzol still operator at bedside.
[2016-11-14 22:47] LABS: HEMATOCRIT 27.3 % (36.0-48.0); MEAN CELL VOLUME 74.2 fL (80.0-105.0); MEAN CORPUSCULAR HEMOGLOBIN 26.4 pg (25.0-35.0); MEAN CORPUSCULAR HGB CONC 35.5 g/dl (31.0-37.0); MEAN PLATELET VOLUME 9.9 fl (7.0-11.0); RED CELL DISTRIBUTION WIDTH 15.2 % (11.5-14.5); WHITE BLOOD COUNT 8.1 10^3/ul (4.5-11.0)
[2016-11-15 05:49] LABS: ADD MANUAL DIFF? NO
[2016-11-15 06:00] LABS: BASO # 0.04 K/mm3 (0.0-2.0); BASO % 0.5 % (0.0-3.0); EOS # 0.2 (0.0-0.7); EOS % 2.1 % (1.5-5.0); GRAN # 5.35 (1.4-6.5); GRAN % 69.8 % (50.0-68.0); HEMATOCRIT 26.5 % (36.0-48.0); LYMPH # 1.5 (1.2-3.4); LYMPH % 19.9 % (22.0-35.0); MEAN CELL VOLUME 73.6 fL (80.0-105.0); MEAN CORPUSCULAR HEMOGLOBIN 25.8 pg (25.0-35.0); MEAN CORPUSCULAR HGB CONC 35.1 g/dl (31.0-37.0); MEAN PLATELET VOLUME 10.3 fl (7.0-11.0); MONO # 0.6 (0.1-0.6); MONO % 7.7 % (1.0-6.0); PLATELET COUNT 131 10^3/uL (120.0-450.0); RED CELL DISTRIBUTION WIDTH 14.8 % (11.5-14.5); WHITE BLOOD COUNT 7.7 10^3/ul (4.5-11.0)
[2016-11-15 06:10] LABS: ALB/GLOB RATIO 1.1 (1.1-1.8); BILIRUBIN,TOTAL 1.7 mg/dL (0.2-1.3); CALCIUM 7.9 mg/dL (8.4-10.5); MAGNESIUM 1.6 mg/dL (1.7-2.2); PHOSPHOROUS 5.3 mg/dL (2.5-4.5); TOTAL PROTEIN 5.8 g/dL (5.8-8.3)
[2016-11-15 06:30] LABS: TOTAL PROTEIN, SERUM 6.3 g/dL (6.1-8.1)
[2016-11-15 07:18] LABS: CHLORIDE URINE 91 mmol/L (32-290)
[2016-11-15] MEDS: Insulin Lispro (humaLOG) MEDIUM Coverage SC SCH ×4 (08:40→22:07)
[2016-11-15] MEDS: Multivitamin Vitamin B Complex (Nephro-Vite) Tab PO SCH (09:34)
[2016-11-15 10:19] LABS: IRON 175 ug/dL (45-180)
--- NOTE | 2016-11-15 11:36 | CP.PCM.PN ---
Subjective - Date & Time of Evaluation Date of Evaluation: 11/15/16 Time of Evaluation: 09:00 - Subjective Subjective: patient seen and examined in ICU. Patient's by the bedside. translation by German-speaking resident. The patient just completed hemodialysis treatment. patient denies any chest pain or shortness of breath. Denies any abdominal pain. Denies any nausea, vomiting. Complaining of mild discomfort on the right chest/hemodialysis catheter site. denies any bleeding. Review of Systems - Constitutional Constitutional: absent: Fever, Chills - EENT Eyes: absent: Blurred Vision Nose/Mouth/Throat: absent: Nasal Congestion - Cardiovascular Cardiovascular: absent: Chest Pain, Chest Pain at Rest Additional comments: R chest discomfort at dialysis cath site - Respiratory Respiratory: absent: Cough, Dyspnea - Gastrointestinal Gastrointestinal: absent: Abdominal Pain, Heartburn, Vomiting - Psychiatric Psychiatric: absent: Anxiety, Depression - Endocrine Endocrine: absent: Fatigue, Palpitations - Hematologic/Lymphatic Hematologic: absent: Easy Bleeding, Easy Bruising Objective - Vital Signs/Intake and Output Vital Signs (last 24 hours): Temp Pulse Resp BP Pulse Ox 98.5 F 86 18 186/96 H 93 L 11/15/16 04:59 11/15/16 09:38 11/15/16 04:00 11/15/16 09:39 11/14/16 21:20 Intake and Output: 11/15/16 11/15/16 06:59 18:59 Output Total 1999 380 Balance -1999 -380 - Medications Medications: Current Medications Acetaminophen (Tylenol 325mg Tab) 650 mg PO Q4 PRN PRN Reason: Pain, Mild (1-3) Last Admin: 11/14/16 23:11 Dose: 650 mg Carvedilol (Coreg) 6.25 mg PO DAILY [facility] Last Admin: 11/15/16 09:34 Dose: 6.25 mg Famotidine (Pepcid) 20 mg IVP DAILY [facility] Last Admin: 11/15/16 09:41 Dose: 20 mg Furosemide (Lasix) 40 mg IVP BID [facility] Last Admin: 11/15/16 09:39 Dose: 40 mg Heparin Sodium (Porcine) (Heparin) 5,000 units SC Q12 [facility] PRN Reason: Protocol Last Admin: 11/15/16 09:46 Dose: 5,000 units Hydralazine HCl (Apresoline) 10 mg IVP Q6 PRN PRN Reason: Systolic Blood Pressure Last Admin: 11/15/16 09:38 Dose: 10 mg Insulin Human Lispro (Humalog Med) 0 units SC ACHS [facility] PRN Reason: Protocol Last Admin: 11/15/16 08:40 Dose: Not Given Vitamin B Complex/Vit C/Folic Acid (Nephro-Mini) 1 tab PO DAILY [facility] Last Admin: 11/15/16 09:34 Dose: 1 tab - Labs Labs: 11/15/16 05:00 11/15/16 05:00 - Constitutional Appears: Well, Non-toxic - Head Exam Head Exam: NORMAL INSPECTION - Eye Exam Eye Exam: Normal appearance - ENT Exam ENT Exam: Mucous Membranes Moist - Neck Exam Additional comments: R neck HD catheter present. dressing clean. no bleeding noted. - Respiratory Exam Respiratory Exam: NORMAL BREATHING PATTERN - Cardiovascular Exam Cardiovascular Exam: REGULAR RHYTHM - GI/Abdominal Exam GI & Abdominal Exam: Soft, Normal Bowel Sounds. absent: Tenderness - Extremities Exam Extremities Exam: absent: Pedal Edema - Back Exam Back Exam: absent: CVA tenderness (L), CVA tenderness (R) - Neurological Exam Neurological Exam: Alert - Psychiatric Exam Psychiatric exam: Normal Affect - Skin Skin Exam: Normal Color Assessment and Plan - Assessment and Plan (Free Text) Assessment: 1.Patient is a [id number] female admitted with shortness of breath and acute on chronic renal failure. patient had hyperkalemia and significant uremia. started on hemodialysis yesterday by [facility] recovery special tactics Dr. Miller. Chronic kidney disease is related to diabetes and hypertension and noncompliance with follow-up. Patient did not take medications over 2 years. patient got first hemodialysis yesterday. Second hemodialysis completed today. Patient tolerated the procedure well. 2. Hypertension; Coreg dosage increased. Started on Norvasc. May add ANY inhibitor/ARB since hyperkalemia is resolved. 3.diabetes; continue regular insulin sliding scale. blood sugar is better controlled.hemoglobin A1c is pending. 4.dietitian evaluation/renal diet education given. 5. elevated BNP; secondary to volume overload/uncontrolled hypertension. echocardiogram ordered. Cardiology evaluation requested. 6.GI prophylaxis with pepcid. 7. DVT prophylaxis with heparin. 8.PT evaluation requested. 9.manager small business evaluation ordered for outpatient hemodialysis arrangements. Upon discharge the patient will follow-up with PMD .
--- NOTE | 2016-11-15 12:47 | CARD ---
APPROVED REPORT EXAM: Two-dimensional and M-mode echocardiogram with Doppler and color Doppler. 2D DIMENSIONS IVSd0.9 (0.7-1.1cm)LVDd4.3 (3.9-5.9cm) PWd1.0 (0.7-1.1cm)LVDs2.8 (2.5-4.0cm) FS (%) 34.0 %LVEF (%)63.3 (>50%) M-Mode DIMENSIONS Left Atrium (MM)3.10 (2.5-4.0cm)Aortic Root3.20 (2.2-3.7cm) Aortic Cusp Exc.1.70 (1.5-2.0cm) Aortic Valve AoV Peak Vjguxulk790.0cm/sAoV VTI28.3cmAO Peak GR.12mmHg LVOT Peak Yvjzozdw063.0cm/sLVOT VTI23.00cmAO Mean GR.5mmHg Mitral Valve MV E Retqfwzz32.2cm/sMV A Edarpxsp54.9cm/sE/A ratio1.4 TDI Lateral E' Peak V5.07cm/sMedial E' Peak V4.39cm/sE/Lateral E'12.1 E/Medial E'13.9 Tricuspid Valve TR Peak Wecajbpr579lb/sRAP KTDWPFUQ07vxIsNH Peak Gr.44mmHg [id number] LEFT VENTRICLE The left ventricle is normal size. There is normal left ventricular wall thickness. The left ventricular function is normal. The left ventricular ejection fraction is within the normal range. There is normal LV segmental wall motion. Tissue Doppler imaging reveals mild left ventricular diastolic dysfunction. RIGHT VENTRICLE The right ventricle is normal size. There is normal right ventricular wall thickness. The right ventricular systolic function is normal. ATRIA The left atrium size is normal. The right atrium size is normal. AORTIC VALVE The aortic valve is mildly to moderately thickened. No aortic regurgitation is present. There is no aortic valvular stenosis. MITRAL VALVE The mitral valve is normal in structure. Mitral regurgitation is trace. TRICUSPID VALVE There is moderate pulmonary hypertension. GREAT VESSELS The aortic root is normal in size. The IVC is normal in size and collapses >50% with inspiration. PERICARDIAL EFFUSION There is moderate left pleural effusion. <Conclusion> The left ventricle is normal size. There is normal left ventricular wall thickness. The left ventricular function is normal. The left ventricular ejection fraction is within the normal range. There is normal LV segmental wall motion. Tissue Doppler imaging reveals mild left ventricular diastolic dysfunction. The aortic valve is mildly to moderately thickened. There is moderate pulmonary hypertension.
--- NOTE | 2016-11-15 13:01 | CARD ---
APPROVED REPORT EKG Measurement Heart [id number] MD [id number] <Conclusion> Normal sinus rhythm T wave abnormality, consider lateral ischemia Abnormal ECG
--- NOTE | 2016-11-15 13:14 | PN ---
DATE: 11/15/2016 SUBJECTIVE: The patient is resting in bed with family at bedside with no complaints of shortness of breath, cough, wheezing, chest congestion. The patient has a dialysis catheter in place and has had dialysis and feels much better since fluid has been taken off. No abdominal pain, no chest pain, no diarrhea. PHYSICAL EXAMINATION: VITAL SIGNS: Her temperature is 98.2, pulse is 73, respirations are 17, and BP is 120/60. SKIN: Warm and dry. HEAD: Atraumatic, normocephalic. EYES: Reactive to light. EARS, NOSE AND THROAT: Seem to be within normal limits. NECK: Supple. No JVD, no thyroid enlargement, no lymph nodes. HEART: Has regular rate and rhythm, normal S1, S2. LUNGS: Reveal good breath sounds bilaterally. ABDOMEN: Soft, nontender. Decreased bowel sounds. GENITALIA AND RECTAL: Deferred. MUSCULOSKELETAL: No joint deformities. EXTREMITIES: Reveal trace lower extremity edema. NEUROLOGIC: She seemed to be grossly intact. LABORATORY DATA: Her white count is 7.7, hemoglobin is 9.3, hematocrit 26.5 with platelets of 131,00 0. Her sodium is 139, potassium 5.0, chloride 105, CO2 of 25 with a BUN of 79, creatinine of 9.3, an d a glucose of 175. 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 The patient had fluid overload on admission as well. She has a history of hypertension, diabetes and hyperlipidemia as well as anemia. PLAN: We will continue to monitor closely and continue with her hypertensive meds as well as her patricia betic meds and continue to dialyze the patient as per renal's instructions. The patient is scheduled to be transferred to the general medical floor. Sanford Villavicencio MD cc: [id number] TT: 11/15/2016 13:13:07 Confirmation # [id number] Dictation # [id number]
[2016-11-15] MEDS ORDERED: Darbepoetin Alfa 60 mcg/ml Inj IVP ONE (13:32)
--- NOTE | 2016-11-15 13:38 | CP.PCM.PN ---
Subjective - Date & Time of Evaluation Date of Evaluation: 11/15/16 Time of Evaluation: 13:34 - Subjective Subjective: Follow up Nephrology Consultation Note Assessment: Appears to have likely ESRD with uremia as with severe anemia, Hyperphosphatemia , NAGMA, fluid overload. Long standing hx of DM, Hypertension vitamin D Def Plan done HD today 2nd session as ordered. will re-assess tomorrow for 3rd session yesterday PRBC with HD given. now Hb better. TSAT 80%, will start Aranesp 60 mcg weekly will supplement with Vit D weekly x 8 dose Please consult vascular surgery for AVF. preserve left arm for furture surgery. vein mapping. Hypertension control with meds as ordered. may resume ACEI or ARB Monitor Input/Output, daily weights and renal function with basic metabolic panel, CBC, phos Check urine analysis, spot protein/creatinine and albumin/creatinine ratio Check for 25-OH vitamin D, iPTH, phosphorus level. anemia work up with TSAT, Ferritin, serum protein electrophoresis Check prelim GN work up as C3, C4, JOSE ALBERTO, Anti dsDNA, ANCA (MPO and OK-3), serum protein electrophoresis with immunofixation, HIV/Hep B and Hep C serology. if all negative, unlikely to pursue invasive work up such as kidney biopsy as pt with long standing hx of DM/HTN and CKD with cr ~ 2 approx 2 years ago and lack of follow up since then). Dose meds/antibiotics for reduced GFR. Avoid fleets enema/magnesium based laxatives. Avoid nephrotoxins/NSAIDs/ iodinated contrast (unless needed emergently). Glycemic control. Further work up for as per primary team. d/w team Thanks for allowing me to participate in care of your patient. Will follow patient with you. Please call if any Qs Dr Delroy Miller Office: [phone] Subjective: Noted events overnight. Patients feels okay. Denies chest pain, palpitation, shortness of breath, leg swelling. No urinary complaints. c/o mild pain at permacath site Physical Examination: General Appearance: Comfortable, in no acute respiratory distress, co- operative. Vitals reviewed and noted as below Lungs: Normal respiratory rate/effort. Breath sounds bilateral equal and basal crackles Heart: Normal rate. s1s2 normal. No rub or gallop. Extremities: no edema. Neurological: Patient is alert, awake and oriented to person, place and time. No focal deficit. Strength bilateral appropriate and equal Skin: Warm and dry. Normal turgor. No rash. Palpitation: Normal elasticity for age Abdomen: Abdomen is soft. Bowel sounds +. There is no abdominal tenderness, no guarding/rigidity or organomegaly : kidney or bladder not palpable Access: permacath Labs/imaging reviewed. Past medical history, past surgical history, family history, social history, allergy reviewed Objective - Vital Signs/Intake and Output Vital Signs (last 24 hours): Temp Pulse Resp BP Pulse Ox 98.2 F 75 17 119/54 L 95 11/15/16 11:43 11/15/16 13:16 11/15/16 11:30 11/15/16 13:18 11/15/16 11:30 Intake and Output: 11/15/16 11/15/16 06:59 18:59 Output Total 1999 380 Balance -2000 -380 - Medications Medications: Current Medications Acetaminophen (Tylenol 325mg Tab) 650 mg PO Q4 PRN PRN Reason: Pain, Mild (1-3) Last Admin: 11/14/16 23:11 Dose: 650 mg Amlodipine Besylate (Norvasc) 10 mg PO DAILY [facility] Last Admin: 11/15/16 13:18 Dose: 10 mg Carvedilol (Coreg) 12.5 mg PO DAILY [facility] Darbepoetin Chavo (Aranesp) 60 mcg IVP ONCE ONE Stop: 11/15/16 13:33 Ergocalciferol (Drisdol 50,000 Intl Units Cap) 1 cap PO Q7D [facility] Famotidine (Pepcid) 20 mg IVP DAILY [facility] Last Admin: 11/15/16 09:41 Dose: 20 mg Heparin Sodium (Porcine) (Heparin) 5,000 units SC Q12 [facility] PRN Reason: Protocol Last Admin: 11/15/16 09:46 Dose: 5,000 units Hydralazine HCl (Apresoline) 10 mg IVP Q6 PRN PRN Reason: Systolic Blood Pressure Last Admin: 11/15/16 09:38 Dose: 10 mg Hydralazine HCl (Apresoline) 50 mg PO TID [facility] Last Admin: 11/15/16 13:16 Dose: Not Given Insulin Human Lispro (Humalog Med) 0 units SC ACHS [facility] PRN Reason: Protocol Last Admin: 11/15/16 11:48 Dose: 1 units Vitamin B Complex/Vit C/Folic Acid (Nephro-Mini) 1 tab PO DAILY [facility] Last Admin: 11/15/16 09:34 Dose: 1 tab - Labs Labs: 11/15/16 05:00 11/15/16 05:00
[2016-11-15] MEDS ORDERED: Ergocalciferol 50,000 Intl Units Cap PO SCH (13:45)
--- NOTE | 2016-11-15 15:28 | CON ---
DATE: 11/15/2016 REQUESTING PHYSICIAN: Dr. Valadez. REASON FOR CONSULTATION: Congestive heart failure. HISTORY OF PRESENT ILLNESS: This is a 61-year-old woman with a history of hypertension, diabetes, wh o presents to the Emergency Room complaining of increasing leg swelling and edema. She also had poor appetite and abdominal discomfort and worsening dyspnea. Upon admission, she was noted to have sorin re renal insufficiency and a hemoglobin of 7.1. A dialysis catheter was placed yesterday and she is currently on dialysis. She is seen lying in bed in the ICU. She is comfortable at the present time. She denies any prior cardiac history. She has no chest pain. PAST MEDICAL HISTORY: Notable for the problems mentioned above. She did undergo a hysterectomy in t he past. CURRENT MEDICATIONS: Include hydralazine p.r.n., carvedilol 6.25 mg daily, subcutaneous heparin, ins ulin, Lasix 40 mg IV b.i.d., and Pepcid. ALLERGIES: None. SOCIAL HISTORY: She does not smoke or drink. FAMILY HISTORY: Both parents are . There is no family history of premature heart disease. REVIEW OF SYSTEMS: A 10 point review of systems otherwise unremarkable. PHYSICAL EXAMINATION: GENERAL: She is a middle-aged woman who appears comfortable at the present time. VITAL SIGNS: Her blood pressure is 186/96 with a pulse of 86, respirations are 16. She is currently afebrile. HEENT: Normocephalic, atraumatic. Pupils equally reactive to light and accommodation. NECK: Supple, no JVD, no is noted. CHEST: Diminished breath sounds at the bases. HEART: PMI is normal position with a systolic murmur left sternal border. ABDOMEN: Soft, nontender with normoactive bowel sounds. EXTREMITIES: 1+ leg edema. DIAGNOSTIC DATA: White count 7.7. Initial hemoglobin was 6.7, repeat is 9.3, hematocrit 26.3, MCV o f 73, platelet count is 131,000. Initial blood gas showed pH of 7.36, pCO2 of 20 with a pO2 of 59. Potassium 5.0, BUN and creatinine are 79 and 9.3. CK was 313 with a negative MB fraction. Troponin 0.08, cholesterol 145 with an LDL of 75, HDL 36, triglycerides are 82. TSH 2.89. Initial stool guai ac is negative. Electrocardiogram reveals sinus rhythm with anterolateral T-wave inversions. IMPRESSION: 1. Dyspnea, likely due to severe anemia and renal failure. 2. Possible hypertensive heart disease. 3. Acute renal failure, currently on dialysis. 4. Anemia, etiology uncertain. RECOMMENDATIONS: Current treatment should continue. An echocardiogram will be obtained to assess he r left ventricular size and function and screen for the presence of LVH and diastolic dysfunction. O ptimization of her antihypertensive therapy is advised. We will continue to follow and make further recommendations as appropriate. Thank you for this consultation. Bandar Dasilva MD cc: [id number] TT: 11/15/2016 15:27:13 Confirmation # [id number] Dictation # [id number] [id number]
[2016-11-15] MEDS ORDERED: Darbepoetin Alfa 60 mcg/ml Inj SC ONE (18:40)
[2016-11-15 22:30] LABS: URINE BILIRUBIN NEGATIVE (NEGATIVE); URINE BLOOD MODERATE (NEGATIVE); URINE GLUCOSE (UA) 100 mg/dL (NEGATIVE); URINE KETONE NEGATIVE (NEGATIVE); URINE LEUKOCYTE ESTERASE TRACE Leu/uL (NEGATIVE); URINE PROTEIN >=300 mg/dL (<30 mg/dL); URINE UROBILINOGEN 0.2 E.U./dL (<1 E.U./dL)
[2016-11-15 22:31] LABS: URINE APPEARANCE SLIGHT-CLOUDY (CLEAR); URINE COLOR YELLOW (YELLOW)
[2016-11-15 22:35] LABS: URINE RBC 20 - 25 /hpf (0-2)
[2016-11-15 22:36] LABS: URINE AMORPHOUS SEDIMENT MODERATE; URINE BACTERIA TRACE (NEG)
[2016-11-16] MEDS: Multivitamin Vitamin B Complex (Nephro-Vite) Tab PO SCH (10:07)
[2016-11-16] MEDS: Insulin Lispro (humaLOG) MEDIUM Coverage SC SCH ×3 (10:08→21:24)
--- NOTE | 2016-11-16 11:22 | PN ---
DATE: 11/16/2016 SUBJECTIVE: The patient is seen sitting in bed on telemetry. She feels more comfortable. Dyspnea h as improved. She denies any chest pain. She was dialyzed yesterday. CURRENT MEDICATIONS: Include hydralazine p.r.n., hydralazine 50 mg t.i.d., carvedilol 12.5 mg daily, amlodipine 10 mg daily, Pepcid 20 mg daily. OBJECTIVE: GENERAL: She is a middle-aged woman who appears comfortable at the present time. VITAL SIGNS: Her blood pressure is 120/56 with a pulse of 82, and respirations are 16. She is curre ntly afebrile. HEENT: No JVD. CHEST: A dialysis catheter is in place in the right subclavian region. LUNGS: Appear clear. HEART: PMI in normal position. No pathologic murmur or gallops noted. ABDOMEN: Soft, nontender, normoactive bowel sounds. EXTREMITIES: No edema. DIAGNOSTIC DATA: Echocardiogram revealed normal a LV size and systolic function with aortic valve t hickening and mild tricuspid regurgitation. Morning labs are pending. IMPRESSION: 1. Recent heart failure syndrome, likely due to volume overload in the setting of severe renal insuf ficiency and increased metabolic demands due to severe anemia. 2. No evidence of significant left ventricular dysfunction. 3. Anemia, etiology to be determined. 4. Acute renal failure, improved with dialysis. 5. History of hypertension, currently controlled. RECOMMENDATIONS: Current treatment plan should continue. Carvedilol should be increased to b.i.d. d osing for appropriate control. An eventual stress test would be advisable as well. We will continue to follow along and make further recommendations as appropriate. Bandar Dasilva MD cc: [id number] TT: 11/16/2016 11:22:01 Confirmation # [id number] Dictation # [id number] timo
--- NOTE | 2016-11-16 12:21 | CP.PCM.PN ---
<Darlin Donaldson - Last Filed: 11/16/16 12:18> Subjective - Date & Time of Evaluation Date of Evaluation: 11/16/16 Time of Evaluation: 12:18 - Subjective Subjective: HOSPITALISTS PROGRESS NOTE Pt is seen and examined at bedside. No acute events overnight. Pt had 2 sessions of dialysis. Today she is resting comfortably. patient denies having any CP, SOB, abd pain, N/V/D/c, F/C. Objective - Vital Signs/Intake and Output Vital Signs (last 24 hours): Temp Pulse Resp BP Pulse Ox 97.7 F 74 20 114/57 L 96 11/16/16 11:34 11/16/16 11:34 11/16/16 11:34 11/16/16 11:34 11/16/16 06:00 Intake and Output: 11/16/16 11/16/16 06:59 18:59 Intake Total 900 Output Total 2150 Balance -1250 - Medications Medications: Current Medications Acetaminophen (Tylenol 325mg Tab) 650 mg PO Q4 PRN PRN Reason: Pain, Mild (1-3) Last Admin: 11/14/16 23:11 Dose: 650 mg Amlodipine Besylate (Norvasc) [address] [facility] Last Admin: 11/16/16 10:06 Dose: 10 mg Carvedilol (Coreg) 12.[address] [facility] Last Admin: 11/16/16 10:05 Dose: 12.5 mg Ergocalciferol (Drisdol 50,000 Intl Units Cap) [address] [facility] Last Admin: 11/15/16 18:14 Dose: 1 cap Famotidine (Pepcid) [address] [facility] Last Admin: 11/16/16 10:06 Dose: 20 mg Heparin Sodium (Porcine) (Heparin) 5,[address] [facility] PRN Reason: Protocol Last Admin: 11/16/16 10:07 Dose: 5,000 units Hydralazine HCl (Apresoline) 10 mg IVP Q6 PRN PRN Reason: Systolic Blood Pressure Last Admin: 11/15/16 09:38 Dose: 10 mg Hydralazine HCl (Apresoline) [address] [facility] Last Admin: 11/16/16 10:07 Dose: 50 mg Insulin Human Lispro (Humalog Med) [address] [facility] PRN Reason: Protocol Last Admin: 11/16/16 10:08 Dose: Not Given Vitamin B Complex/Vit C/Folic Acid (Nephro-Mini) [address] [facility] Last Admin: 11/16/16 10:07 Dose: 1 tab - Labs Labs: 11/15/16 05:00 11/15/16 05:00 - Constitutional Appears: Non-toxic, No Acute Distress - Head Exam Head Exam: ATRAUMATIC - ENT Exam ENT Exam: Mucous Membranes Moist - Respiratory Exam Respiratory Exam: Clear to Ausculation Bilateral. absent: Rales, Rhonchi, Wheezes - Cardiovascular Exam Cardiovascular Exam: REGULAR RHYTHM, +S1, +S2. absent: Gallop, Rubs, Murmur - GI/Abdominal Exam GI & Abdominal Exam: Soft, Normal Bowel Sounds. absent: Distended, Firm, Guarding, Rigid, Tenderness - Extremities Exam Extremities Exam: absent: Pedal Edema, Tenderness - Neurological Exam Neurological Exam: Alert, Awake, Oriented x3 - Psychiatric Exam Psychiatric exam: Normal Affect, Normal Mood - Skin Skin Exam: Dry, Intact, Normal Color, Warm Additional comments: dress in place over the site of the permacath Assessment and Plan - Assessment and Plan (Free Text) Assessment: 61 year old female with past medical history of DM, HTN, hypercholesterolemia is admitted for new onset of CHF, acute renal failure, and hyperkalemia. [place], [place] [address]. CXR on admission showed vascular congestion. Patient had 2 episodes of hemodialysis which she tolerated well. Will have another one tomorrow. Plan: CHF, new onset Patient recieved one stat dose of lasixs today. Otherwise, lasixs have been discontinued -I's and O's -HOB at 30 degree -Daily weight -O2 NC maintain sat >90% -Cardiology consult, Dr. Batres help appreciated -Echo shows normal LV function and structure with mild LV diastolic dysfunction. Mild AV thickening and moderate pulm HTN Acute renal failure - Nephrology, Dr. Berman is consulted. - Will repeat HD tomorrow - Renal ultrasound is unremarkable - will follow up renal studies Hyperkalemia - Improved - Will continue to monitor Anemia - Hgb/Hct stable - Stool occult at bedside was negative. - patient will receive 1 unit PRBC transfusion on 11/14. DM -ISS -Lipid panel WNL. Hgb A1c pending -Consistent carb diet Hypertension -Hold Enalapril -Norvasc 10 mg po qd, hydralazine 10 mg IV q6 prn, Hydralazine 50 mg po tid, Coreg 12.5 mg po bid Prophylactic measures -Pepcid 20mg -Heparin 5000unit SC Q12 Case discussed with attending, Dr. Valadez <Lavon Valadez - Last Filed: 11/16/16 15:04> Objective - Vital Signs/Intake and Output Vital Signs (last 24 hours): Temp Pulse Resp BP Pulse Ox 97.7 F 74 20 114/57 L 96 11/16/16 11:34 11/16/16 13:34 11/16/16 11:34 11/16/16 13:34 11/16/16 06:00 Intake and Output: 11/16/16 11/16/16 06:59 18:59 Intake Total 900 Output Total 2150 Balance -1250 - Medications Medications: Current Medications Acetaminophen (Tylenol 325mg Tab) 650 mg PO Q4 PRN PRN Reason: Pain, Mild (1-3) Last Admin: 11/14/16 23:11 Dose: 650 mg Amlodipine Besylate (Norvasc) [address] [facility] Last Admin: 11/16/16 10:06 Dose: 10 mg Carvedilol (Coreg) 12.[address] [facility] Last Admin: 11/16/16 10:05 Dose: 12.5 mg Ergocalciferol (Drisdol 50,000 Intl Units Cap) [address] [facility] Last Admin: 11/15/16 18:14 Dose: 1 cap Famotidine (Pepcid) [address] [facility] Last Admin: 11/16/16 10:06 Dose: 20 mg Heparin Sodium (Porcine) (Heparin) 5,000 units SC Q12 [facility] PRN Reason: Protocol Last Admin: 11/16/16 10:07 Dose: 5,000 units Hydralazine HCl (Apresoline) 10 mg IVP Q6 PRN PRN Reason: Systolic Blood Pressure Last Admin: 11/15/16 09:38 Dose: 10 mg Hydralazine HCl (Apresoline) [address] [facility] Last Admin: 11/16/16 13:34 Dose: 50 mg Insulin Human Lispro (Humalog Med) [address] [facility] PRN Reason: Protocol Last Admin: 11/16/16 12:42 Dose: Not Given Vitamin B Complex/Vit C/Folic Acid (Nephro-Mini) [address] [facility] Last Admin: 11/16/16 10:07 Dose: 1 tab - Labs Labs: 11/16/16 13:35 11/16/16 13:35 Attending/Attestation - Attestation I have personally seen and examined this patient.: Yes I have fully participated in the care of the patient.: Yes I have reviewed all pertinent clinical information, including history, physical exam and plan: Yes Notes (Text): 11/16/16 15:03 Attending note; Patient seen and examined with resident. 1.Patient is a [id number] female admitted with shortness of breath and acute on chronic renal failure. patient had hyperkalemia and significant uremia. started on hemodialysis yesterday by sheet layer Dr. Miller. Chronic kidney disease is related to diabetes and hypertension and noncompliance with follow-up. Patient did not take medications over 2 years. Got hemodialysis x 2. [facility] for dialysis tomorrow. 2. Hypertension; Coreg dosage increased. Started on Norvasc and hydralazine. 3.diabetes; continue regular insulin sliding scale. blood sugar is better controlled.hemoglobin A1c is pending. 4.dietitian evaluation/renal diet education given. 5. elevated BNP; secondary to volume overload/uncontrolled hypertension. echocardiogram ordered. Cardiology evaluation requested. 6.GI prophylaxis with pepcid. 7. DVT prophylaxis with heparin. 8.PT evaluation requested. 9.manager medical evaluation ordered for outpatient hemodialysis arrangements. Upon discharge the patient will follow-up with PMD .
--- NOTE | 2016-11-16 13:00 | CP.PCM.PN ---
Subjective - Date & Time of Evaluation Date of Evaluation: 11/16/16 Time of Evaluation: 12:56 - Subjective Subjective: Follow up Nephrology Consultation Note Assessment: Appears to have likely ESRD (likely diabetic nephropathy) with uremia as with severe anemia, Hyperphosphatemia, NAGMA, fluid overload. Long standing hx of DM, Hypertension vitamin D Def Plan will check labs today and if stable then plan tomorrow HD for 3rd session PRBC with HD given. now Hb better. TSAT 80%, given Aranesp 60 mcg 11/15/16 then weekly supplement with Vit D weekly x 8 dose consulted vascular surgery for AVF. preserve left arm for future surgery. vein mapping. Hypertension control with meds as ordered. may resume ACEI or ARB Monitor Input/Output, daily weights and renal function with basic metabolic panel, CBC, phos Check urine analysis, spot protein/creatinine and albumin/creatinine ratio sent 25-OH vitamin D, iPTH, phosphorus level. anemia work up with TSAT, Ferritin , serum protein electrophoresis sent C3, C4, TERESSA, Anti dsDNA, ANCA (MPO and [place]-3), serum protein electrophoresis with immunofixation, HIV/Hep B and Hep C serology. if all negative, unlikely to pursue invasive work up such as kidney biopsy as pt with long standing hx of DM/HTN and CKD with cr ~ 2 approx 2 years ago and lack of follow up since then). Reviewing the results as they become available. so far hepb/c neg, teressa neg, normal complements. Dose meds/antibiotics for reduced GFR <10 and dialysis status. Avoid fleets enema/magnesium based laxatives. Avoid nephrotoxins/NSAIDs/ iodinated contrast ( unless needed emergently). Glycemic control. Further work up for as per primary team. 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 Thanks for allowing me to participate in care of your patient. Will follow patient with you. Please call if any Qs Dr Delroy Miller Office: [phone] Subjective: Noted events overnight. Patients feels okay. Denies chest pain, palpitation, shortness of breath, leg swelling. No urinary complaints. c/o constipation Physical Examination: General Appearance: Comfortable, in no acute respiratory distress, co- operative. Vitals reviewed and noted as below Lungs: Normal respiratory rate/effort. Breath sounds bilateral equal and clearer Heart: Normal rate. s1s2 normal. No rub or gallop. Extremities: no edema. Neurological: Patient is alert, awake and oriented to person, place and time. No focal deficit. Strength bilateral appropriate and equal Skin: Warm and dry. Normal turgor. No rash. Palpitation: Normal elasticity for age Abdomen: Abdomen is soft. Bowel sounds +. There is no abdominal tenderness, no guarding/rigidity or organomegaly : kidney or bladder not palpable Access: permacath Labs/imaging reviewed. Past medical history, past surgical history, family history, social history, allergy reviewed Objective - Vital Signs/Intake and Output Vital Signs (last 24 hours): Temp Pulse Resp BP Pulse Ox 97.7 F 74 20 114/57 L 96 11/16/16 11:34 11/16/16 11:34 11/16/16 11:34 11/16/16 11:34 11/16/16 06:00 Intake and Output: 11/16/16 11/16/16 06:59 18:59 Intake Total 900 Output Total 2150 Balance -1250 - Medications Medications: Current Medications Acetaminophen (Tylenol 325mg Tab) 650 mg PO Q4 PRN PRN Reason: Pain, Mild (1-3) Last Admin: 11/14/16 23:11 Dose: 650 mg Amlodipine Besylate (Norvasc) 10 mg PO DAILY [facility] Last Admin: 11/16/16 10:06 Dose: 10 mg Carvedilol (Coreg) 12.5 mg PO BID [facility] Last Admin: 11/16/16 10:05 Dose: 12.5 mg Ergocalciferol (Drisdol 50,000 Intl Units Cap) 1 cap PO Q7D [facility] Last Admin: 11/15/16 18:14 Dose: 1 cap Famotidine (Pepcid) 20 mg PO DAILY [facility] Last Admin: 11/16/16 10:06 Dose: 20 mg Heparin Sodium (Porcine) (Heparin) 5,000 units SC Q12 [facility] PRN Reason: Protocol Last Admin: 11/16/16 10:07 Dose: 5,000 units Hydralazine HCl (Apresoline) 10 mg IVP Q6 PRN PRN Reason: Systolic Blood Pressure Last Admin: 11/15/16 09:38 Dose: 10 mg Hydralazine HCl (Apresoline) 50 mg PO TID [facility] Last Admin: 11/16/16 10:07 Dose: 50 mg Insulin Human Lispro (Humalog Med) 0 units SC ACHS [facility] PRN Reason: Protocol Last Admin: 11/16/16 12:42 Dose: Not Given Vitamin B Complex/Vit C/Folic Acid (Nephro-Mini) 1 tab PO DAILY [facility] Last Admin: 11/16/16 10:07 Dose: 1 tab - Labs Labs: 11/15/16 05:00 11/15/16 05:00
[2016-11-16 13:50] LABS: HEMATOCRIT 27.9 % (36.0-48.0); MEAN CELL VOLUME 73.6 fL (80.0-105.0); MEAN CORPUSCULAR HEMOGLOBIN 26.1 pg (25.0-35.0); MEAN CORPUSCULAR HGB CONC 35.5 g/dl (31.0-37.0); MEAN PLATELET VOLUME 10.4 fl (7.0-11.0); RED CELL DISTRIBUTION WIDTH 15.3 % (11.5-14.5); WHITE BLOOD COUNT 6.9 10^3/ul (4.5-11.0)
[2016-11-16 13:55] LABS: POTASSIUM 4.1 mmol/L (3.6-5.0)
[2016-11-17 06:18] LABS: HEMATOCRIT 25.8 % (36.0-48.0); MEAN CELL VOLUME 73.1 fL (80.0-105.0); MEAN CORPUSCULAR HEMOGLOBIN 25.8 pg (25.0-35.0); MEAN CORPUSCULAR HGB CONC 35.3 g/dl (31.0-37.0); MEAN PLATELET VOLUME 10.2 fl (7.0-11.0); RED CELL DISTRIBUTION WIDTH 15.5 % (11.5-14.5); WHITE BLOOD COUNT 7.1 10^3/ul (4.5-11.0)
[2016-11-17 06:46] LABS: PHOSPHOROUS 5.3 mg/dL (2.5-4.5); POTASSIUM 4.1 mmol/L (3.6-5.0)
[2016-11-17] MEDS: Insulin Lispro (humaLOG) MEDIUM Coverage SC SCH ×4 (08:02→22:23)
[2016-11-17] MEDS: Multivitamin Vitamin B Complex (Nephro-Vite) Tab PO SCH (09:37)
[2016-11-17 11:13] LABS: ADD MANUAL DIFF? NO
[2016-11-17 11:22] LABS: BASO # 0.04 K/mm3 (0.0-2.0); BASO % 0.6 % (0.0-3.0); EOS # 0.1 (0.0-0.7); EOS % 1.7 % (1.5-5.0); GRAN # 4.68 (1.4-6.5); HEMATOCRIT 24.7 % (36.0-48.0); LYMPH # 1.3 (1.2-3.4); LYMPH % 18.4 % (22.0-35.0); MEAN CELL VOLUME 73.7 fL (80.0-105.0); MEAN CORPUSCULAR HGB CONC 35.2 g/dl (31.0-37.0); MEAN PLATELET VOLUME 10.7 fl (7.0-11.0); MONO # 0.9 (0.1-0.6); MONO % 13.3 % (1.0-6.0); PLATELET COUNT 122 10^3/uL (120.0-450.0); RED CELL DISTRIBUTION WIDTH 15.4 % (11.5-14.5); WHITE BLOOD COUNT 7.1 10^3/ul (4.5-11.0)
[2016-11-17 11:39] LABS: ALB/GLOB RATIO 1.1 (1.1-1.8); BILIRUBIN,TOTAL 0.4 mg/dL (0.2-1.3); CALCIUM 7.8 mg/dL (8.4-10.5); MAGNESIUM 1.6 mg/dL (1.7-2.2); PHOSPHOROUS 5.2 mg/dL (2.5-4.5); TOTAL PROTEIN 5.4 g/dL (5.8-8.3)
[2016-11-17] MEDS: HEPARIN 1000 UNIT/ML ICV SCH (13:24)
[2016-11-17] MEDS: HEPARIN 1000 UNIT/ML ICA SCH (13:24)
[2016-11-17] MEDS ORDERED: Doxercalciferol 4 mcg/2 ml Inj IV SCH (14:00)
--- NOTE | 2016-11-17 14:35 | PQF CHF ---
This form is a permanent part of the medical record Clarification of your documentation is requested to better reflect the severity of illness and intensity of treatment of your patient. Indicators present Admitted w/ new onset CHF & acute renal failure. BNP 60953 on admission, CXR- vascular congestion .For coding accuracy Please document acuity & type of CHF POA.. ECHO- normal LVF, EF- 63.6 [x Diagnosis of CHF and/or history of CHF [x] BNP > 200 []x Imaging Finding of Pulmonary Edema /Pleural Effusions [x] Fluid/Volume Overload [] Pitting edema [] Ejection Fraction < 40% (Indicative of Systolic Heart Failure) [x] Ejection Fraction > 40% (Indicative of Diastolic Heart Failure) [x] Dyspnea / Orthopenea / Paroxysmal Nocturnal Dyspnea [] Other: Location in the medical record that reflects the above clinical findings: DC summary] Treatment Provided: []Dialysis PHYSICIAN'S RESPONSE Based on your medical judgment of the clinical indicators outlined above, are you treating this patient for a known or suspected: [] Acute CHF [] Systolic [] Diastolic [] Combined [x] Chronic CHF [] Systolic [x] Diastolic [] Combined [] Acute on Chronic CHF []Systolic [] Diastolic [] Combined [] CHF due hypertension [] Acute systolic []Chronic systolic [] Acute/ chronic systolic [] Other, please indicate: [] [] If Unable to Determine, please check the box, sign and date. Present On Admission (POA) Indicator: [x] Present at the time of admission [] Not present at the time of admission [] Clinically Undetermined In responding to this query, please exercise your independent professional judgment. The fact that a question is asked does not imply that any particular answer is desired or expected. Thank you for your clarification on this documentation. If you have any questions please call:[ ][phone] * Thank you, [ ]Kirsten West RN CDS staff reporter [facility]
--- NOTE | 2016-11-17 15:43 | CP.PCM.PN ---
Subjective - Date & Time of Evaluation Date of Evaluation: 11/17/16 Time of Evaluation: 15:38 - Subjective Subjective: Follow up Nephrology Consultation Note Assessment: Appears to have likely ESRD (likely diabetic nephropathy) with uremia as with severe anemia, Hyperphosphatemia, NAGMA, fluid overload. Long standing hx of DM with retinopathy, Hypertension vitamin D Def (<12) with hyperphosphatemia Phos 5.6 and secondary hyperparathyroidism PTH 1256 Plan plan for HD today then MWF schedule. s/p blood transfusion Hb better. TSAT 80%, given Aranesp 60 mcg 11/15/16 then weekly supplement with Vit D weekly x 8 dose and hectorol 4 mcg IV with HD consulted vascular surgery for AVF. preserve left arm for future surgery. vein mapping ordered. Hypertension control with meds as ordered. may resume ACEI or ARB. d/c hydralazine Monitor Input/Output, daily weights and renal function Check urine spot protein/creatinine and albumin/creatinine ratio pending Anti dsDNA, ANCA (MPO and [place]-3), serum protein electrophoresis with immunofixation. if all negative, unlikely to pursue invasive work up such as kidney biopsy as pt with long standing hx of DM/HTN and CKD with cr ~ 2 approx 2 years ago and lack of follow up since then). Reviewing the results as they become available. so far hiv/hep b/c neg, teressa neg , normal complements. Dose meds/antibiotics for reduced GFR <10 and dialysis status. Avoid fleets enema/magnesium based laxatives. Avoid nephrotoxins/NSAIDs/ iodinated contrast ( unless needed emergently). Glycemic control. Further work up for as per primary team. 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 Thanks for allowing me to participate in care of your patient. Will follow patient with you. Please call if any Qs. d/c planning as per primary team. she is stable for d/c from renal perspective once arranged to get outpt dialysis. If possible to get AVF placed before d/c, that will be great. Dr Delroy Miller Office: [phone] Subjective: Noted events overnight. Patients feels okay. Denies chest pain, palpitation, shortness of breath, leg swelling. No urinary complaints. Physical Examination: General Appearance: Comfortable, in no acute respiratory distress, co- operative. Vitals reviewed and noted as below Lungs: Normal respiratory rate/effort. Breath sounds bilateral equal and clearer Heart: Normal rate. s1s2 normal. No rub or gallop. Extremities: no edema. Neurological: Patient is alert, awake and oriented to person, place and time. No focal deficit. Strength bilateral appropriate and equal Skin: Warm and dry. Normal turgor. No rash. Palpitation: Normal elasticity for age Abdomen: Abdomen is soft. Bowel sounds +. There is no abdominal tenderness, no guarding/rigidity or organomegaly : kidney or bladder not palpable Access: permacath Labs/imaging reviewed. Past medical history, past surgical history, family history, social history, allergy reviewed Objective - Vital Signs/Intake and Output Vital Signs (last 24 hours): Temp Pulse Resp BP Pulse Ox 97.9 F 68 20 118/60 98 11/17/16 05:49 11/17/16 10:00 11/17/16 05:49 11/17/16 05:49 11/17/16 05:49 Intake and Output: 11/17/16 11/17/16 06:59 18:59 Intake Total 240 300 Output Total 600 500 Balance -360 -200 - Medications Medications: Current Medications Acetaminophen (Tylenol 325mg Tab) 650 mg PO Q4 PRN PRN Reason: Pain, Mild (1-3) Last Admin: 11/14/16 23:11 Dose: 650 mg Carvedilol (Coreg) 12.5 mg PO BID [facility] Last Admin: 11/16/16 17:07 Dose: 12.5 mg Doxercalciferol (Hectorol) 4 mcg IV [facility] Ergocalciferol (Drisdol 50,000 Intl Units Cap) 1 cap PO Q7D [facility] Last Admin: 11/15/16 18:14 Dose: 1 cap Famotidine (Pepcid) 20 mg PO DAILY [facility] Last Admin: 11/17/16 09:37 Dose: 20 mg Heparin Sodium (Porcine) (Heparin) 5,000 units SC Q12 [facility] PRN Reason: Protocol Last Admin: 11/16/16 21:23 Dose: 5,000 units Heparin Sodium (Porcine) (Heparin (Renal)) 2,000 units ICA MOWEFR [facility] Last Admin: 11/17/16 13:24 Dose: 2,000 units Heparin Sodium (Porcine) (Heparin (Renal)) 2,200 units ICV MOWEFR [facility] Last Admin: 11/17/16 13:24 Dose: 2,200 units Hydralazine HCl (Apresoline) 10 mg IVP Q6 PRN PRN Reason: Systolic Blood Pressure Last Admin: 11/15/16 09:38 Dose: 10 mg Insulin Human Lispro (Humalog Med) 0 units SC ACHS [facility] PRN Reason: Protocol Last Admin: 11/17/16 12:12 Dose: Not Given Vitamin B Complex/Vit C/Folic Acid (Nephro-Mini) 1 tab PO DAILY [facility] Last Admin: 11/17/16 09:37 Dose: 1 tab - Labs Labs: 11/17/16 10:40 11/17/16 10:40
--- NOTE | 2016-11-17 16:19 | CP.PCM.PN ---
Addendum entered and electronically signed by Darlin Donaldson DO 11/17/16 16:34: Assessment: thrombocytopenia likely due to ESRD and uremia. Will continue to monitor. Held heparin due to nose bleed. Patient is on SCDs. Original Note: <Darlin Donaldson - Last Filed: 11/17/16 16:14> Subjective - Date & Time of Evaluation Date of Evaluation: 11/17/16 Time of Evaluation: 16:15 - Subjective Subjective: HOSPITALISTS PROGRESS NOTE Pt is seen and examined at bedside. No acute events overnight. Patient will be going for 3rd HD session today. Pt denies having any Cp, SOB, abd pain, N/V/ D/C. Patient is tolerating diet. Objective - Vital Signs/Intake and Output Vital Signs (last 24 hours): Temp Pulse Resp BP Pulse Ox 97.9 F 68 20 118/60 98 11/17/16 05:49 11/17/16 10:00 11/17/16 05:49 11/17/16 05:49 11/17/16 05:49 Intake and Output: 11/17/16 11/17/16 06:59 18:59 Intake Total 240 300 Output Total 600 500 Balance -360 -200 - Medications Medications: Current Medications Acetaminophen (Tylenol 325mg Tab) 650 mg PO Q4 PRN PRN Reason: Pain, Mild (1-3) Last Admin: 11/14/16 23:11 Dose: 650 mg Carvedilol (Coreg) 12.5 mg PO BID ON LICENSE OF [facility] Last Admin: 11/16/16 17:07 Dose: 12.5 mg Doxercalciferol (Hectorol) 4 mcg [place] [facility] [place]gocal[place]iferol (Drisdol 50,000 Intl Units Cap) 1 cap PO Q7D ON LICENSE OF [facility] Last Admin: 11/15/16 18:14 Dose: 1 cap Famotidine (Pepcid) 20 mg PO DAILY ON LICENSE OF [facility] Last Admin: 11/17/16 09:37 Dose: 20 mg Heparin Sodium (Porcine) (Heparin) 5,000 units SC Q12 ON LICENSE OF [facility] PRN Reason: Protocol Last Admin: 11/16/16 21:23 Dose: 5,000 units Heparin Sodium (Porcine) (Heparin (Renal)) 2,000 units ICA MOWEFR ON LICENSE OF [facility] Last Admin: 11/17/16 13:24 Dose: 2,000 units Heparin Sodium (Porcine) (Heparin (Renal)) 2,200 units ICV MOWEFR ON LICENSE OF [facility] Last Admin: 11/17/16 13:24 Dose: 2,200 units Hydralazine HCl (Apresoline) 10 mg IVP Q6 PRN PRN Reason: Systolic Blood Pressure Last Admin: 11/15/16 09:38 Dose: 10 mg Insulin Human Lispro (Humalog Med) 0 units SC ACHS [facility] PRN Reason: Protocol Last Admin: 11/17/16 12:12 Dose: Not Given Vitamin B Complex/Vit C/Folic Acid (Nephro-Mini) 1 tab PO DAILY ON LICENSE OF [facility] Last Admin: 11/17/16 09:37 Dose: 1 tab - Labs Labs: 11/17/16 10:40 11/17/16 10:40 - Constitutional Appears: Non-toxic, No Acute Distress - Head Exam Head Exam: ATRAUMATIC - Eye Exam Eye Exam: EOMI - ENT Exam ENT Exam: Mucous Membranes Moist - Respiratory Exam Respiratory Exam: Clear to Ausculation Bilateral, NORMAL BREATHING PATTERN. absent: Rales, Rhonchi, Wheezes - Cardiovascular Exam Cardiovascular Exam: REGULAR RHYTHM, +S1, +S2. absent: Gallop, Rubs, Murmur - GI/Abdominal Exam GI & Abdominal Exam: Soft, Normal Bowel Sounds. absent: Distended, Firm, Guarding, Rigid, Tenderness - Extremities Exam Extremities Exam: absent: Pedal Edema, Tenderness - Neurological Exam Neurological Exam: Alert, Awake, Oriented x3 - Psychiatric Exam Psychiatric exam: Normal Affect, Normal Mood - Skin Skin Exam: Dry, Intact, Normal Color, Warm Assessment and Plan - Assessment and Plan (Free Text) Assessment: 61 year old female with past medical history of DM, HTN, hypercholesterolemia is admitted for new onset of CHF, acute renal failure, and hyperkalemia. Plan: CHF, new onset -I's and O's -HOB at 30 degree -Daily weight -O2 NC maintain sat >90% -Cardiology consult, Dr. Batres help appreciated -Echo shows normal LV function and structure with mild LV diastolic dysfunction. Mild AV thickening and moderate pulm HTN ESRD - Nephrology, Dr. Berman is consulted. - Will repeat HD tomorrow - Renal ultrasound is unremarkable - will follow up renal studies Hyperkalemia - resolved - Will continue to monitor Anemia - Hgb/Hct stable - Stool occult at bedside was negative. - patient will receive 1 unit PRBC transfusion on 11/14. Secondary Hyperparathyroidism likely due to ESRD - Patient will get weekly supplements of vit D DM -ISS -Lipid panel WNL. Hgb A1c pending -Consistent carb diet Hypertension -Hold Enalapril. - Discontinued Norvasc due to LE swelling - hydralazine 10 mg IV q6 prn, Hydralazine 50 mg po tid, Coreg 12.5 mg po bid Prophylactic measures -Pepcid 20mg -Heparin 5000unit SC Q12 Case discussed with attending, Dr. Nair <Jessica Nair - Last Filed: 11/18/16 17:31> Objective - Vital Signs/Intake and Output Vital Signs (last 24 hours): Temp Pulse Resp BP Pulse Ox 97 F L 88 18 119/64 96 11/18/16 12:00 11/18/16 14:00 11/18/16 12:00 11/18/16 12:00 11/18/16 06:00 Intake and Output: 11/18/16 11/18/16 06:59 18:59 Intake Total 120 540 Output Total 2 Balance 120 538 - Medications Medications: Current Medications Acetaminophen (Tylenol 325mg Tab) 650 mg PO Q4 PRN PRN Reason: Pain, Mild (1-3) Last Admin: 11/14/16 23:11 Dose: 650 mg Carvedilol (Coreg) 12.5 mg PO BID ON LICENSE OF [facility] Last Admin: 11/18/16 10:25 Dose: 12.5 mg Docusate Sodium (Colace) 100 mg PO BID ON LICENSE OF [facility] Last Admin: 11/18/16 10:25 Dose: 100 mg Doxercalciferol (Hectorol) 4 mcg IV MWF ON LICENSE OF [facility] Last Admin: 11/17/16 17:23 Dose: Not Given Ergocalciferol (Drisdol 50,000 Intl Units Cap) 1 cap PO Q7D ON LICENSE OF [facility] Last Admin: 11/15/16 18:14 Dose: 1 cap Famotidine (Pepcid) 20 mg PO DAILY ON LICENSE OF [facility] Last Admin: 11/18/16 10:26 Dose: 20 mg Heparin Sodium (Porcine) (Heparin) 5,000 units SC Q12 ON LICENSE OF [facility] PRN Reason: Protocol Last Admin: 11/16/16 21:23 Dose: 5,000 units Heparin Sodium (Porcine) (Heparin (Renal)) 2,000 units ICA MOWEFR ON LICENSE OF [facility] Last Admin: 11/17/16 13:24 Dose: 2,000 units Heparin Sodium (Porcine) (Heparin (Renal)) 2,200 units ICV MOWEFR ON LICENSE OF [facility] Last Admin: 11/17/16 13:24 Dose: 2,200 units Hydralazine HCl (Apresoline) 10 mg IVP Q6 PRN PRN Reason: Systolic Blood Pressure Last Admin: 11/15/16 09:38 Dose: 10 mg Insulin Human Lispro (Humalog Med) 0 units SC ACHS [facility] PRN Reason: Protocol Last Admin: 11/18/16 12:27 Dose: 3 units Vitamin B Complex/Vit C/Folic Acid (Nephro-Mini) 1 tab PO DAILY [facility] Last Admin: 11/18/16 10:25 Dose: 1 tab - Labs Labs: 11/18/16 06:15 11/18/16 06:15 Attending/Attestation - Attestation I have personally seen and examined this patient.: Yes I have fully participated in the care of the patient.: Yes I have reviewed all pertinent clinical information, including history, physical exam and plan: Yes Notes (Text): I have seen and examined patient at bedside. Agree with the residents note with the following additions/ exceptions: Briefly, this is 61 year old female with history of DM-2, HTN, dyslipidemia, non compliance with medications who got admitted for evaluation of shortness of breath and found to have volume overload secondary to acute on chronic renal failure, secondary hyperparathyroidism, anemia and thrombocytopenia. HIV, hep b, hep c, teressa negative. Complements normal. No plan for renal biopsy. Most likely ESRD is due to long standing uncontrolled DM. Patient has been tolerating hemodialysis. Continue coreg and hydralazine. Hba1c is pending. Echo revealed mild LV diastolic dysfunction and moderate pulmonary hypertension. Renal ultrasound unremarkable. Discussed with shoe caser regarding outpatient HD set up. Awaiting for vascular consult for venous mapping and AV fistula. Pateint had mild epistaxis from right nostril which got relieved with pressure. Hold heparin for now. Start scd's. Upon discharge the patient will follow-up with PMD . Dr Jessica Nair
[2016-11-17 18:34] LABS: URINE BILIRUBIN NEGATIVE (NEGATIVE); URINE BLOOD NEGATIVE (NEGATIVE); URINE GLUCOSE (UA) NEGATIVE (NEGATIVE); URINE KETONE NEGATIVE (NEGATIVE); URINE LEUKOCYTE ESTERASE MODERATE Leu/uL (NEGATIVE); URINE PROTEIN >=300 mg/dL (<30 mg/dL); URINE UROBILINOGEN 0.2 E.U./dL (<1 E.U./dL)
[2016-11-17 18:41] LABS: URINE COLOR YELLOW (YELLOW)
[2016-11-17 18:42] LABS: URINE APPEARANCE SL CLOUDY (CLEAR)
[2016-11-17 18:54] LABS: URINE BACTERIA MOD (NEG); URINE RBC 15 - 20 /hpf (0-2)
[2016-11-17 18:55] LABS: URINE WAXY CAST 0-1 /hpf
[2016-11-17 18:56] LABS: URINE AMORPHOUS SEDIMENT FEW
[2016-11-18 06:57] LABS: ADD MANUAL DIFF? NO
[2016-11-18 07:05] LABS: BASO # 0.05 K/mm3 (0.0-2.0); BASO % 0.7 % (0.0-3.0); EOS # 0.1 (0.0-0.7); EOS % 1.9 % (1.5-5.0); GRAN # 3.47 (1.4-6.5); GRAN % 50.2 % (50.0-68.0); HEMATOCRIT 26.6 % (36.0-48.0); LYMPH # 2.4 (1.2-3.4); LYMPH % 34.3 % (22.0-35.0); MEAN CELL VOLUME 74.5 fL (80.0-105.0); MEAN CORPUSCULAR HEMOGLOBIN 25.8 pg (25.0-35.0); MEAN CORPUSCULAR HGB CONC 34.6 g/dl (31.0-37.0); MEAN PLATELET VOLUME 10.2 fl (7.0-11.0); MONO # 0.9 (0.1-0.6); MONO % 12.9 % (1.0-6.0); PLATELET COUNT 114 10^3/uL (120.0-450.0); RED CELL DISTRIBUTION WIDTH 15.4 % (11.5-14.5); WHITE BLOOD COUNT 6.9 10^3/ul (4.5-11.0)
[2016-11-18 07:12] LABS: CALCIUM 8.1 mg/dL (8.4-10.5); POTASSIUM 4.1 mmol/L (3.6-5.0)
[2016-11-18] MEDS: Insulin Lispro (humaLOG) MEDIUM Coverage SC SCH ×4 (07:46→22:02)
[2016-11-18 09:05] LABS: BETA 1 GLOBULIN 0.4 g/dL (0.4-0.6); BETA 2 GLOBULIN 0.4 g/dL (0.2-0.5)
[2016-11-18] MEDS: Multivitamin Vitamin B Complex (Nephro-Vite) Tab PO SCH (10:25)
--- NOTE | 2016-11-18 14:21 | CP.PCM.PN ---
Subjective - Date & Time of Evaluation Date of Evaluation: 11/18/16 Time of Evaluation: 09:20 - Subjective Subjective: Follow up Nephrology Consultation Note Assessment: Appears to have likely ESRD (likely diabetic nephropathy) with uremia as with severe anemia, Hyperphosphatemia, NAGMA, fluid overload. 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 s/p blood transfusion Hb better. TSAT 80%, given Aranesp 60 mcg 11/15/16 then weekly supplement with Vit D weekly x 8 dose and hectorol 4 mcg IV with HD consulted vascular surgery for AVF. preserve left arm for future surgery. vein mapping ordered. Hypertension control with meds as ordered. may resume ACEI or ARB if needed for HTN. d/c hydralazine Check urine spot protein/creatinine and albumin/creatinine ratio all gn work up negative, unlikely to pursue invasive work up such as kidney biopsy as pt with long standing hx of DM/HTN and CKD with cr ~ 2 approx 2 years ago and lack of follow up since then). Reviewing the results as they become available. so far hiv/hep b/c neg, teressa/anca /electrophoresis neg, normal complements. Dose meds/antibiotics for reduced GFR <10 and dialysis status. Avoid fleets enema/magnesium based laxatives. Avoid nephrotoxins/NSAIDs/ iodinated contrast ( unless needed emergently). Glycemic control. Further work up for as per primary team. feed in worker for outpt HD arrangements. Thanks for allowing me to participate in care of your patient. Will follow patient with you. Please call if any Qs. d/c planning as per primary team. she is stable for d/c from renal perspective once arranged to get outpt dialysis. If possible to get AVF placed before d/c, that will be great. Dr Delroy Miller Office: [phone] Subjective: Noted events overnight. Patients feels okay. Denies chest pain, palpitation, shortness of breath, leg swelling. No urinary complaints. Physical Examination: General Appearance: Comfortable, in no acute respiratory distress, co- operative. Vitals reviewed and noted as below Lungs: Normal respiratory rate/effort. Breath sounds bilateral equal and clearer Heart: Normal rate. s1s2 normal. No rub or gallop. Extremities: no edema. Neurological: Patient is alert, awake and oriented to person, place and time. No focal deficit. Strength bilateral appropriate and equal Skin: Warm and dry. Normal turgor. No rash. Palpitation: Normal elasticity for age Abdomen: Abdomen is soft. Bowel sounds +. There is no abdominal tenderness, no guarding/rigidity or organomegaly : kidney or bladder not palpable Access: permacath Labs/imaging reviewed. Past medical history, past surgical history, family history, social history, allergy reviewed Objective - Vital Signs/Intake and Output Vital Signs (last 24 hours): Temp Pulse Resp BP Pulse Ox 97 F L 88 18 119/64 96 11/18/16 12:00 11/18/16 12:00 11/18/16 12:00 11/18/16 12:00 11/18/16 06:00 Intake and Output: 11/18/16 11/18/16 06:59 18:59 Intake Total 120 Balance 120 - Medications Medications: Current Medications Acetaminophen (Tylenol 325mg Tab) 650 mg PO Q4 PRN PRN Reason: Pain, Mild (1-3) Last Admin: 11/14/16 23:11 Dose: 650 mg Carvedilol (Coreg) 12.5 mg PO BID [facility] Last Admin: 11/18/16 10:25 Dose: 12.5 mg Docusate Sodium (Colace) 100 mg PO BID [facility] Last Admin: 11/18/16 10:25 Dose: 100 mg Doxercalciferol (Hectorol) 4 mcg IV MWF [facility] Last Admin: 11/17/16 17:23 Dose: Not Given Ergocalciferol (Drisdol 50,000 Intl Units Cap) 1 cap PO Q7D [facility] Last Admin: 11/15/16 18:14 Dose: 1 cap Famotidine (Pepcid) 20 mg PO DAILY [facility] Last Admin: 11/18/16 10:26 Dose: 20 mg Heparin Sodium (Porcine) (Heparin) 5,000 units SC Q12 [facility] PRN Reason: Protocol Last Admin: 11/16/16 21:23 Dose: 5,000 units Heparin Sodium (Porcine) (Heparin (Renal)) 2,000 units ICA MOWEFR [facility] Last Admin: 11/17/16 13:24 Dose: 2,000 units Heparin Sodium (Porcine) (Heparin (Renal)) 2,200 units ICV MOWEFR [facility] Last Admin: 11/17/16 13:24 Dose: 2,200 units Hydralazine HCl (Apresoline) 10 mg IVP Q6 PRN PRN Reason: Systolic Blood Pressure Last Admin: 11/15/16 09:38 Dose: 10 mg Insulin Human Lispro (Humalog Med) 0 units SC ACHS [facility] PRN Reason: Protocol Last Admin: 11/18/16 12:27 Dose: 3 units Vitamin B Complex/Vit C/Folic Acid (Nephro-Mini) 1 tab PO DAILY [facility] Last Admin: 11/18/16 10:25 Dose: 1 tab - Labs Labs: 11/18/16 06:15 11/18/16 06:15
--- NOTE | 2016-11-18 14:50 | US ---
HISTORY: Evaluate superficial venous system for upper extremity AV access placement PHYSICIAN(S): Ismael Boggs MD. FINDINGS: Right upper extremity: The right cephalic vein measures 2 mm at the wrist. The right cephalic vein measures 2 mm in the mid forearm. The right cephalic vein at the elbow measures 4 mm. The right cephalic vein above the elbow measures 2-3 mm. The right basilic vein at the wrist measures 1-2 mm. The right basilic vein in the mid forearm measures 2 mm. The right basilic vein at the elbow measures 2 mm. The right basilic vein above the elbow measures 2- 3 mm. No evidence of thrombus or post phlebitic changes appreciated. Left upper extremity: The left cephalic vein in the forearm measures 1-2 mm. The left cephalic vein at the elbow measures 4 mm. The left cephalic vein above the elbow measures 1- 3 mm. The left basilic vein at the wrist measures 1-2 mm. The left basilic vein in the forearm measures 1-2 mm. The left basilic vein in the upper arm measures 2-3 mm IMPRESSION: 1. The superficial venous system bilaterally is patent though somewhat small in caliber. 2. No evidence of thrombus or post phlebitic changes are appreciated.
--- NOTE | 2016-11-18 16:47 | CP.PCM.PN ---
<Darlin Donaldson - Last Filed: 11/18/16 16:40> Subjective - Date & Time of Evaluation Date of Evaluation: 11/18/16 Time of Evaluation: 16:40 - Subjective Subjective: HOSPITLAISTS PROGRESS NOTE Pt is seen and examined at bedside. No acute events overnight. Patient is resting comfortably. She denies having any more nose bleeds after yesterday. Pt denies having any CP, SOB, abd pain, N/V/D/C, dysuria. Patient had vein mapping for AV fistula done today. Objective - Vital Signs/Intake and Output Vital Signs (last 24 hours): Temp Pulse Resp BP Pulse Ox 97 F L 88 18 119/64 96 11/18/16 12:00 11/18/16 14:00 11/18/16 12:00 11/18/16 12:00 11/18/16 06:00 Intake and Output: 11/18/16 11/18/16 06:59 18:59 Intake Total 120 540 Output Total 2 Balance 120 538 - Medications Medications: Current Medications Acetaminophen (Tylenol 325mg Tab) 650 mg PO Q4 PRN PRN Reason: Pain, Mild (1-3) Last Admin: 11/14/16 23:11 Dose: 650 mg Carvedilol (Coreg) 12.5 mg PO BID [facility] Last Admin: 11/18/16 10:25 Dose: 12.5 mg Docusate Sodium (Colace) 100 mg PO BID [facility] Last Admin: 11/18/16 10:25 Dose: 100 mg Doxercalciferol (Hectorol) 4 mcg IV MWF [facility] Last Admin: 11/17/16 17:23 Dose: Not Given Ergocalciferol (Drisdol 50,000 Intl Units Cap) 1 cap PO Q7D [facility] Last Admin: 11/15/16 18:14 Dose: 1 cap Famotidine (Pepcid) 20 mg PO DAILY [facility] Last Admin: 11/18/16 10:26 Dose: 20 mg Heparin Sodium (Porcine) (Heparin) 5,000 units SC Q12 [facility] PRN Reason: Protocol Last Admin: 11/16/16 21:23 Dose: 5,000 units Heparin Sodium (Porcine) (Heparin (Renal)) 2,000 units ICA MOWEFR [facility] Last Admin: 11/17/16 13:24 Dose: 2,000 units Heparin Sodium (Porcine) (Heparin (Renal)) 2,200 units ICV MOWEFR [facility] Last Admin: 11/17/16 13:24 Dose: 2,200 units Hydralazine HCl (Apresoline) 10 mg IVP Q6 PRN PRN Reason: Systolic Blood Pressure Last Admin: 11/15/16 09:38 Dose: 10 mg Insulin Human Lispro (Humalog Med) 0 units SC ACHS [facility] PRN Reason: Protocol Last Admin: 11/18/16 12:27 Dose: 3 units Vitamin B Complex/Vit C/Folic Acid (Nephro-Mini) 1 tab PO DAILY [facility] Last Admin: 11/18/16 10:25 Dose: 1 tab - Labs Labs: 11/18/16 06:15 11/18/16 06:15 - Constitutional Appears: Non-toxic, No Acute Distress - Head Exam Head Exam: ATRAUMATIC, NORMAL INSPECTION - Eye Exam Eye Exam: EOMI - ENT Exam ENT Exam: Mucous Membranes Moist - Respiratory Exam Respiratory Exam: Clear to Ausculation Bilateral. absent: Rales, Rhonchi, Wheezes - Cardiovascular Exam Cardiovascular Exam: REGULAR RHYTHM, +S1, +S2. absent: Gallop, Rubs, Murmur - GI/Abdominal Exam GI & Abdominal Exam: Soft, Normal Bowel Sounds. absent: Distended, Firm, Guarding, Rigid - Extremities Exam Extremities Exam: absent: Pedal Edema, Tenderness - Neurological Exam Neurological Exam: Alert, Awake, Oriented x3 - Psychiatric Exam Psychiatric exam: Normal Affect, Normal Mood - Skin Skin Exam: Dry, Intact, Normal Color, Warm Assessment and Plan - Assessment and Plan (Free Text) Assessment: 61 year old female with past medical history of DM, HTN, hypercholesterolemia is admitted for new onset of CHF, acute renal failure, and hyperkalemia. Plan: CHF, new onset -I's and O's -HOB at 30 degree -Daily weight -O2 NC maintain sat >90% -Cardiology consult, Dr. Batres help appreciated -Echo shows normal LV function and structure with mild LV diastolic dysfunction. Mild AV thickening and moderate pulm HTN ESRD - Nephrology, Dr. Berman is consulted. - Will repeat HD tomorrow - Renal ultrasound is unremarkable - will follow up renal studies - Patient had vein mapping of left arm for AV fistula placement done today. AV fistula will be placed in the morning. She will be NPO after midnight - Patient had dialysis schedule set up with outpatient dialysis center for T, Th , Sat. This has been explained to patient. Hyperkalemia - resolved - Will continue to monitor Anemia - Hgb/Hct stable - Stool occult at bedside was negative. - patient will receive 1 unit PRBC transfusion on 11/14. Secondary Hyperparathyroidism likely due to ESRD - Patient will get weekly supplements of vit D DM -ISS -Lipid panel WNL. Hgb A1c pending -Consistent carb diet Hypertension -Hold Enalapril. - Discontinued Norvasc due to LE swelling - hydralazine 10 mg IV q6 prn, Hydralazine 50 mg po tid, Coreg 12.5 mg po bid Prophylactic measures -Pepcid 20mg -Heparin 5000unit SC Q12 Case discussed with attending, Dr. Nair <Jessica Nair B - Last Filed: 11/20/16 15:45> Objective - Vital Signs/Intake and Output Vital Signs (last 24 hours): Temp Pulse Resp BP Pulse Ox 98.7 F 72 18 137/69 100 11/19/16 16:00 11/19/16 16:00 11/19/16 16:00 11/19/16 16:00 11/19/16 16:00 Intake and Output: 11/19/16 11/19/16 06:59 18:59 Intake Total 480 240 Output Total 200 Balance 480 40 - Medications Medications: Current Medications Acetaminophen (Tylenol 325mg Tab) 650 mg PO Q4 PRN PRN Reason: Pain, Mild (1-3) Last Admin: 11/14/16 23:11 Dose: 650 mg Carvedilol (Coreg) 12.5 mg PO BID [facility] Last Admin: 11/18/16 18:00 Dose: 12.5 mg Docusate Sodium (Colace) 100 mg PO BID [facility] Last Admin: 11/18/16 17:58 Dose: 100 mg Doxercalciferol (Hectorol) 4 mcg IV MWF [facility] Last Admin: 11/17/16 17:23 Dose: Not Given Ergocalciferol (Drisdol 50,000 Intl Units Cap) 1 cap PO Q7D [facility] Last Admin: 11/15/16 18:14 Dose: 1 cap Famotidine (Pepcid) 20 mg PO DAILY [facility] Last Admin: 11/18/16 10:26 Dose: 20 mg Heparin Sodium (Porcine) (Heparin) 5,000 units SC Q12 [facility] PRN Reason: Protocol Last Admin: 11/18/16 22:01 Dose: 5,000 units Heparin Sodium (Porcine) (Heparin (Renal)) 2,000 units ICA MOWEFR [facility] Last Admin: 11/19/16 12:18 Dose: 2,000 units Heparin Sodium (Porcine) (Heparin (Renal)) 2,200 units ICV MOWEFR [facility] Last Admin: 11/19/16 12:18 Dose: 2,200 units Hydralazine HCl (Apresoline) 10 mg IVP Q6 PRN PRN Reason: Systolic Blood Pressure Last Admin: 11/15/16 09:38 Dose: 10 mg Polyethylene Glycol (Miralax) 17 gm PO DAILY [facility] Vitamin B Complex/Vit C/Folic Acid (Nephro-Mini) 1 tab PO DAILY [facility] Last Admin: 11/18/16 10:25 Dose: 1 tab - Labs Labs: 11/19/16 06:30 11/19/16 06:30 Attending/Attestation - Attestation I have personally seen and examined this patient.: Yes I have fully participated in the care of the patient.: Yes I have reviewed all pertinent clinical information, including history, physical exam and plan: Yes Notes (Text): I have seen and examined patient at bedside. Agree with the residents note with the following additions/ exceptions: Briefly, this is 61 year old female with history of DM-2, HTN, dyslipidemia, non compliance with medications who got admitted for evaluation of shortness of breath and found to have volume overload secondary to acute on chronic renal failure, secondary hyperparathyroidism, anemia and thrombocytopenia. HIV, hep b, hep c and JOSE ALBERTO negative. Complements normal. No plan for renal biopsy. Most likely ESRD is due to long standing uncontrolled DM. Patient has been tolerating hemodialysis. Continue coreg and hydralazine. Hba1c is 5.6. Echo revealed mild LV diastolic dysfunction and moderate pulmonary hypertension. Renal ultrasound unremarkable. Discussed with family caseworker regarding outpatient HD set up. Patient had venous mapping today for AV fistula. Upon discharge the patient will follow-up with PMD . Dr Jessica Nair
--- NOTE | 2016-11-18 18:44 | CP.PCM.PN ---
Subjective - Date & Time of Evaluation Date of Evaluation: 11/18/16 Time of Evaluation: 18:40 - Subjective Subjective: Vascular Surgery: Patient seen and examined. No acute issues, no new complaints. Patient is resting comfortably in bed. She is in no distress. Afebrile with stable vital signs. Review of systems and physical exam are benign. Patient is in regular rhythm and normal rate. Lungs are clear with adequate air movement bilaterally. Abdomen is benign. Upper and lower extremities are warm and perfused. A/P: 61 year old female with ESRD who requires long-term dialysis access. She is scheduled and consented for left upper extremity AV fistula of graft placement tomorrow. Objective - Vital Signs/Intake and Output Vital Signs (last 24 hours): Temp Pulse Resp BP Pulse Ox 98 F 86 16 122/54 L 96 11/18/16 18:16 11/18/16 18:16 11/18/16 18:16 11/18/16 18:16 11/18/16 06:00 Intake and Output: 11/18/16 11/18/16 06:59 18:59 Intake Total 120 1080 Output Total 2 Balance 120 1078 - Medications Medications: Current Medications Acetaminophen (Tylenol 325mg Tab) 650 mg PO Q4 PRN PRN Reason: Pain, Mild (1-3) Last Admin: 11/14/16 23:11 Dose: 650 mg Carvedilol (Coreg) 12.5 mg PO BID [facility]S [facility] Last Admin: 11/18/16 18:00 Dose: 12.5 mg Docusate Sodium (Colace) 100 mg PO BID [facility] 234 [facility]S [facility] Last Admin: 11/18/16 17:58 Dose: 100 mg Doxercalciferol (Hectorol) 4 mcg IV MWF [facility] 234 [facility]S [facility] Last Admin: 11/17/16 17:23 Dose: Not Given Ergocalciferol (Drisdol 50,000 Intl Units Cap) 1 cap PO Q7D [facility]S [facility] Last Admin: 11/15/16 18:14 Dose: 1 cap Famotidine (Pepcid) 20 mg PO DAILY [facility]S [facility] Last Admin: 11/18/16 10:26 Dose: 20 mg Heparin Sodium (Porcine) (Heparin) 5,000 units SC Q12 [facility] 234 [facility]S [facility] PRN Reason: Protocol Last Admin: 11/16/16 21:23 Dose: 5,000 units Heparin Sodium (Porcine) (Heparin (Renal)) 2,000 units ICA MOWEFR [facility] 234 B[facility]S [facility] Last Admin: 11/17/16 13:24 Dose: 2,000 units Heparin Sodium (Porcine) (Heparin (Renal)) 2,200 units ICV MOWEFR [facility] 234 B[facility]S [facility] Last Admin: 11/17/16 13:24 Dose: 2,200 units Hydralazine HCl (Apresoline) 10 mg IVP Q6 PRN PRN Reason: Systolic Blood Pressure Last Admin: 11/15/16 09:38 Dose: 10 mg Insulin Human Lispro (Humalog Med) 0 units SC ACHS [facility] 234 [facility]S [facility] PRN Reason: Protocol Last Admin: 11/18/16 17:44 Dose: Not Given Vitamin B Complex/Vit C/Folic Acid (Nephro-Mini) 1 tab PO DAILY [facility]S [facility] Last Admin: 11/18/16 10:25 Dose: 1 tab - Labs Labs: 11/18/16 06:15 11/18/16 06:15
[2016-11-19 06:13] LABS: CREATININE, RANDOM URINE 125 mg/dL (20-320)
[2016-11-19 06:41] LABS: ADD MANUAL DIFF? NO
[2016-11-19 07:16] LABS: CALCIUM 8.7 mg/dL (8.4-10.5); POTASSIUM 4.3 mmol/L (3.6-5.0)
[2016-11-19 07:41] LABS: BASO # 0.06 K/mm3 (0.0-2.0); BASO % 0.8 % (0.0-3.0); EOS # 0.2 (0.0-0.7); EOS % 2.3 % (1.5-5.0); GRAN # 3.84 (1.4-6.5); GRAN % 51.8 % (50.0-68.0); HEMATOCRIT 26.2 % (36.0-48.0); LYMPH # 2.4 (1.2-3.4); LYMPH % 32.7 % (22.0-35.0); MEAN CELL VOLUME 75.1 fL (80.0-105.0); MEAN CORPUSCULAR HEMOGLOBIN 26.1 pg (25.0-35.0); MEAN CORPUSCULAR HGB CONC 34.7 g/dl (31.0-37.0); MEAN PLATELET VOLUME 10.3 fl (7.0-11.0); MONO # 0.9 (0.1-0.6); MONO % 12.4 % (1.0-6.0); PLATELET COUNT 133 10^3/uL (120.0-450.0); RED CELL DISTRIBUTION WIDTH 15.4 % (11.5-14.5); WHITE BLOOD COUNT 7.4 10^3/ul (4.5-11.0)
[2016-11-19] MEDS: Insulin Lispro (humaLOG) MEDIUM Coverage SC SCH ×2 (07:47→11:47)
[2016-11-19 09:07] LABS: MAGNESIUM 1.8 mg/dL (1.7-2.2); PHOSPHOROUS 5.2 mg/dL (2.5-4.5)
[2016-11-19] MEDS ORDERED: POLYETHYLENE GLYCOL 3350 17 GM/Dose PACKET PO SCH (10:00)
[2016-11-19] MEDS: HEPARIN 1000 UNIT/ML ICA SCH (12:18)
[2016-11-19] MEDS: HEPARIN 1000 UNIT/ML ICV SCH (12:18)
--- NOTE | 2016-11-19 15:41 | CP.PCM.PN ---
Subjective - Date & Time of Evaluation Date of Evaluation: 11/19/16 Time of Evaluation: 12:00 - Subjective Subjective: Follow up Nephrology Consultation Note Assessment: Appears to have likely ESRD (likely diabetic nephropathy) with uremia as with severe anemia, Hyperphosphatemia, NAGMA, fluid overload. Long standing hx of DM with retinopathy, Hypertension vitamin D Def (<12) with hyperphosphatemia Phos 5.6 and secondary hyperparathyroidism PTH 1256 Plan plan for HD today. She will have TTS schedule as outpt but will come for 1st outpt treatment on thursday.. s/p blood transfusion Hb better. TSAT 80%, given Aranesp 60 mcg 11/15/16 then weekly supplement with Vit D weekly x 8 dose and hectorol 4 mcg IV with HD consulted vascular surgery for AVF. preserve left arm for future surgery. vein mapping ordered. plan for AVF today or tomorrow Hypertension control with meds as ordered. may resume ACEI or ARB if needed for HTN. d/c hydralazine Check urine spot protein/creatinine and albumin/creatinine ratio all gn work up negative, unlikely to pursue invasive work up such as kidney biopsy as pt with long standing hx of DM/HTN and CKD with cr ~ 2 approx 2 years ago and lack of follow up since then). Reviewing the results as they become available. so far hiv/hep b/c neg, teressa/anca /electrophoresis neg, normal complements. Dose meds/antibiotics for reduced GFR <10 and dialysis status. Avoid fleets enema/magnesium based laxatives. Avoid nephrotoxins/NSAIDs/ iodinated contrast ( unless needed emergently). Glycemic control. Further work up for as per primary team. d/w team today Thanks for allowing me to participate in care of your patient. Will follow patient with you. Please call if any Qs. Dr Delroy Miller Office: [phone] Subjective: Noted events overnight. Patients feels okay. Denies chest pain, palpitation, shortness of breath, leg swelling. No urinary complaints. Physical Examination: General Appearance: Comfortable, in no acute respiratory distress, co- operative. Vitals reviewed and noted as below Lungs: Normal respiratory rate/effort. Breath sounds bilateral equal and clearer Heart: Normal rate. s1s2 normal. No rub or gallop. Extremities: no edema. Neurological: Patient is alert, awake and oriented to person, place and time. No focal deficit. Strength bilateral appropriate and equal Skin: Warm and dry. Normal turgor. No rash. Palpitation: Normal elasticity for age Abdomen: Abdomen is soft. Bowel sounds +. There is no abdominal tenderness, no guarding/rigidity or organomegaly : kidney or bladder not palpable Access: permacath Labs/imaging reviewed. Past medical history, past surgical history, family history, social history, allergy reviewed Objective - Vital Signs/Intake and Output Vital Signs (last 24 hours): Temp Pulse Resp BP Pulse Ox 98.8 F 66 20 134/70 95 11/19/16 07:30 11/19/16 07:30 11/19/16 07:30 11/19/16 07:30 11/19/16 07:30 Intake and Output: 11/19/16 11/19/16 06:59 18:59 Intake Total 480 240 Output Total 200 Balance 480 40 - Medications Medications: Current Medications Acetaminophen (Tylenol 325mg Tab) 650 mg PO Q4 PRN PRN Reason: Pain, Mild (1-3) Last Admin: 11/14/16 23:11 Dose: 650 mg Carvedilol (Coreg) 12.5 mg PO BID [facility] Last Admin: 11/18/16 18:00 Dose: 12.5 mg Docusate Sodium (Colace) 100 mg PO BID [facility] Last Admin: 11/18/16 17:58 Dose: 100 mg Doxercalciferol (Hectorol) 4 mcg IV MWF [facility] Last Admin: 11/17/16 17:23 Dose: Not Given Ergocalciferol (Drisdol 50,000 Intl Units Cap) 1 cap PO Q7D [facility] Last Admin: 11/15/16 18:14 Dose: 1 cap Famotidine (Pepcid) 20 mg PO DAILY [facility] Last Admin: 11/18/16 10:26 Dose: 20 mg Heparin Sodium (Porcine) (Heparin) 5,000 units SC Q12 [facility] PRN Reason: Protocol Last Admin: 11/18/16 22:01 Dose: 5,000 units Heparin Sodium (Porcine) (Heparin (Renal)) 2,000 units ICA MOWEFR [facility] Last Admin: 11/19/16 12:18 Dose: 2,000 units Heparin Sodium (Porcine) (Heparin (Renal)) 2,200 units ICV MOWEFR [facility] Last Admin: 11/19/16 12:18 Dose: 2,200 units Hydralazine HCl (Apresoline) 10 mg IVP Q6 PRN PRN Reason: Systolic Blood Pressure Last Admin: 11/15/16 09:38 Dose: 10 mg Insulin Human Lispro (Humalog Med) 0 units SC ACHS [facility] PRN Reason: Protocol Last Admin: 11/18/16 22:02 Dose: Not Given Polyethylene Glycol (Miralax) 17 gm PO DAILY [facility] Vitamin B Complex/Vit C/Folic Acid (Nephro-Mini) 1 tab PO DAILY [facility] Last Admin: 11/18/16 10:25 Dose: 1 tab - Labs Labs: 11/19/16 06:30 11/19/16 06:30
--- NOTE | 2016-11-19 16:17 | CP.PCM.PN ---
<Darlin Donaldson - Last Filed: 11/19/16 16:12> Subjective - Date & Time of Evaluation Date of Evaluation: 11/19/16 Time of Evaluation: 16:13 - Subjective Subjective: HOSPITALISTS PROGRESS NOTE Pt is seen and examined at bedside. No acute events overnight. Patient is tolerating diet. Patient will have HD today. Patient denies having any CP, SOB , abd pain, N/V/D/C, urinary complaints. Objective - Vital Signs/Intake and Output Vital Signs (last 24 hours): Temp Pulse Resp BP Pulse Ox 98.7 F 72 18 137/69 100 11/19/16 16:00 11/19/16 16:00 11/19/16 16:00 11/19/16 16:00 11/19/16 16:00 Intake and Output: 11/19/16 11/19/16 06:59 18:59 Intake Total 480 240 Output Total 200 Balance 480 40 - Medications Medications: Current Medications Acetaminophen (Tylenol 325mg Tab) 650 mg PO Q4 PRN PRN Reason: Pain, Mild (1-3) Last Admin: 11/14/16 23:11 Dose: 650 mg Carvedilol (Coreg) 12.5 mg PO BID [facility] Last Admin: 11/18/16 18:00 Dose: 12.5 mg Docusate Sodium (Colace) 100 mg PO BID [facility] Last Admin: 11/18/16 17:58 Dose: 100 mg Doxercalciferol (Hectorol) 4 mcg IV MWF [facility] Last Admin: 11/17/16 17:23 Dose: Not Given Ergocalciferol (Drisdol 50,000 Intl Units Cap) 1 cap PO Q7D [facility] Last Admin: 11/15/16 18:14 Dose: 1 cap Famotidine (Pepcid) 20 mg PO DAILY [facility] Last Admin: 11/18/16 10:26 Dose: 20 mg Heparin Sodium (Porcine) (Heparin) 5,000 units SC Q12 [facility] PRN Reason: Protocol Last Admin: 11/18/16 22:01 Dose: 5,000 units Heparin Sodium (Porcine) (Heparin (Renal)) 2,000 units ICA MOWEFR [facility] Last Admin: 11/19/16 12:18 Dose: 2,000 units Heparin Sodium (Porcine) (Heparin (Renal)) 2,200 units ICV MOWEFR [facility] Last Admin: 11/19/16 12:18 Dose: 2,200 units Hydralazine HCl (Apresoline) 10 mg IVP Q6 PRN PRN Reason: Systolic Blood Pressure Last Admin: 11/15/16 09:38 Dose: 10 mg Insulin Human Lispro (Humalog Med) 0 units SC ACHS [facility] PRN Reason: Protocol Last Admin: 11/18/16 22:02 Dose: Not Given Polyethylene Glycol (Miralax) 17 gm PO DAILY [facility] Vitamin B Complex/Vit C/Folic Acid (Nephro-Mini) 1 tab PO DAILY [facility] Last Admin: 11/18/16 10:25 Dose: 1 tab - Labs Labs: 11/19/16 06:30 11/19/16 06:30 - Constitutional Appears: Non-toxic, No Acute Distress - Head Exam Head Exam: ATRAUMATIC - Eye Exam Eye Exam: EOMI - ENT Exam ENT Exam: Mucous Membranes Moist - Respiratory Exam Respiratory Exam: Clear to Ausculation Bilateral, NORMAL BREATHING PATTERN. absent: Rales, Rhonchi, Wheezes - Cardiovascular Exam Cardiovascular Exam: REGULAR RHYTHM, +S1, +S2. absent: Gallop, Rubs, Murmur - GI/Abdominal Exam GI & Abdominal Exam: Soft, Normal Bowel Sounds. absent: Distended, Firm, Guarding, Rigid, Tenderness - Extremities Exam Extremities Exam: absent: Pedal Edema, Tenderness - Neurological Exam Neurological Exam: Alert, Awake, Oriented x3 - Psychiatric Exam Psychiatric exam: Normal Affect, Normal Mood - Skin Skin Exam: Dry, Intact, Normal Color, Warm Assessment and Plan - Assessment and Plan (Free Text) Assessment: 61 year old female with past medical history of DM, HTN, hypercholesterolemia is admitted for new onset of ESRD and CHF exacerbation. Plan: CHF, new onset -I's and O's -Daily weight -O2 NC maintain sat >90% -Cardiology consult, Dr. Batres help appreciated -Echo shows normal LV function and structure with mild LV diastolic dysfunction. Mild AV thickening and moderate pulm HTN ESRD - HD done today. - Patient will go for AV fistula tomorrow. NPO past midnight. - Nephrology, Dr. Berman is consulted. - Renal ultrasound is unremarkable - will follow up renal studies - Patient had dialysis schedule set up with outpatient dialysis center for T, Th , Sat. This has been explained to patient. Hyperkalemia - resolved - Will continue to monitor Anemia - Hgb/Hct stable - Stool occult at bedside was negative. - patient will receive 1 unit PRBC transfusion on 11/14. Secondary Hyperparathyroidism likely due to ESRD - Patient will get weekly supplements of vit D Hypertension -Hold Enalapril. - Discontinued Norvasc due to LE swelling - hydralazine 10 mg IV q6 prn, Hydralazine 50 mg po tid, Coreg 12.5 mg po bid Prophylactic measures -Pepcid 20mg -Heparin 5000unit SC Q12 Case discussed with attending, Dr. Nair <Jessica Nair - Last Filed: 11/20/16 15:51> Objective - Vital Signs/Intake and Output Vital Signs (last 24 hours): Temp Pulse Resp BP Pulse Ox 98 F 67 17 145/61 97 11/20/16 12:50 11/20/16 12:50 11/20/16 12:50 11/20/16 12:50 11/20/16 12:50 Intake and Output: 11/20/16 11/20/16 06:59 18:59 Intake Total 600 240 Output Total 100 0 Balance 500 240 - Labs Labs: 11/20/16 07:46 11/20/16 07:46 Attending/Attestation - Attestation I have personally seen and examined this patient.: Yes I have fully participated in the care of the patient.: Yes I have reviewed all pertinent clinical information, including history, physical exam and plan: Yes Notes (Text): I have seen and examined patient at bedside. Agree with the residents note with the following additions/ exceptions: Briefly, this is 61 year old female with history of DM-2, HTN, dyslipidemia, non compliance with medications who got admitted for evaluation of shortness of breath and found to have volume overload secondary to acute on chronic renal failure, secondary hyperparathyroidism, anemia and thrombocytopenia. HIV, hep b, hep c and JOSE ALBERTO negative. Complements normal. No plan for renal biopsy. Most likely ESRD is due to long standing uncontrolled DM. Patient has been tolerating hemodialysis. Continue coreg and hydralazine. Hba1c is 5.6. Echo revealed mild LV diastolic dysfunction and moderate pulmonary hypertension. Renal ultrasound unremarkable. Discussed with telephonic case manager regarding outpatient HD set up. Patient had venous mapping yesterday and she will go for AV fistula placement tomorrow. Upon discharge the patient will follow-up with PMD . Dr Jessica Nair
[2016-11-19] MEDS: Multivitamin Vitamin B Complex (Nephro-Vite) Tab PO SCH (17:05)
[2016-11-20 07:25] VITALS: O2SAT 97
[2016-11-20 07:47] LABS: ADD MANUAL DIFF? NO
[2016-11-20 07:54] LABS: BASO # 0.04 K/mm3 (0.0-2.0); BASO % 0.5 % (0.0-3.0); EOS # 0.1 (0.0-0.7); EOS % 1.9 % (1.5-5.0); GRAN # 4.06 (1.4-6.5); GRAN % 54.6 % (50.0-68.0); HEMATOCRIT 28.4 % (36.0-48.0); LYMPH # 2.3 (1.2-3.4); LYMPH % 30.6 % (22.0-35.0); MEAN CELL VOLUME 75.7 fL (80.0-105.0); MEAN CORPUSCULAR HEMOGLOBIN 26.1 pg (25.0-35.0); MEAN CORPUSCULAR HGB CONC 34.5 g/dl (31.0-37.0); MEAN PLATELET VOLUME 10.3 fl (7.0-11.0); MONO # 0.9 (0.1-0.6); MONO % 12.4 % (1.0-6.0); PLATELET COUNT 155 10^3/uL (120.0-450.0); RED CELL DISTRIBUTION WIDTH 15.6 % (11.5-14.5); WHITE BLOOD COUNT 7.4 10^3/ul (4.5-11.0)
[2016-11-20 08:12] LABS: CALCIUM 8.6 mg/dL (8.4-10.5); POTASSIUM 4.5 mmol/L (3.6-5.0)
[2016-11-20 09:02] VITALS: TEMP 98
[2016-11-20] MEDS ORDERED: Liquid Adhesive TOP ONE (09:15)
[2016-11-20] MEDS ORDERED: Bupivacaine 0.5% Inj(30mL) ONE (09:16)
[2016-11-20] MEDS ORDERED: Thrombin Topical 20,000 Intl Units Spray Kit TOP ONE (09:16)
[2016-11-20] MEDS ORDERED: Lidocaine 1% Inj (20ml) ONE (09:16)
[2016-11-20] MEDS ORDERED: Propofol 10 mg/ml Inj (20 ML) ONE (09:35)
[2016-11-20] MEDS ORDERED: Midazolam 2 MG/2 ML VIAL ONE (09:35)
[2016-11-20] MEDS ORDERED: ePHEDrine 50 mg/ml Inj ONE ×2 (10:02→10:43)
[2016-11-20] MEDS ORDERED: Desflurane Inhalation Anesthetic Liq (240 ml) ONE (10:53)
--- NOTE | 2016-11-20 12:24 | PCM.SURG1 ---
Surgeon's Initial Post Op Note - Surgeon's Notes Surgeon: Dr. Reynaga Road Inspector: Dr. Irving PGY1 Type of Anesthesia: General LMA Pre-Operative Diagnosis: renal failure Operative Findings: see dictation Post-Operative Diagnosis: same Operation Performed: Left brachio-basilic AVF Specimen/Specimens Removed: none Estimated Blood Loss: EBL {In ML}: 10 Post-Op Condition: Good Date of Surgery/Procedure: 11/20/16 Time of Surgery/Procedure: 10:00
--- NOTE | 2016-11-20 13:34 | CP.PCM.DIS ---
<Darlin Donaldson - Last Filed: 11/20/16 13:30> Provider - Provider Date of Admission: 11/13/16 21:50 Attending physician: Jessica Nair MD Primary care physician: Samantha Camargo DO Consults: Nephrology: Dr. Miller Vascular surgeon: Dr. Edouard Cardio: Dr. Batres Time Spent in preparation of Discharge (in minutes): 45 Diagnosis - Discharge Diagnosis (1) ESRD (end stage renal disease) Status: Acute (2) Anemia Status: Acute Hospital Course - Lab Results Lab Results: Micro Results 11/14/16 16:35 Nose MRSA Culture (Admit) - Final MRSA NOT DETECTED Most Recent Lab Values WBC 7.4 10^3/ul (4.5-11.0) 11/20/16 07:46 RBC 3.75 10^6/uL (3.5-6.1) 11/20/16 07:46 Hgb 9.8 gm/dL (12.0-16.0) L 11/20/16 07:46 Hct 28.4 % (36.0-48.0) L 11/20/16 07:46 MCV 75.7 fL (80.0-105.0) L 11/20/16 07:46 MCH 26.1 pg (25.0-35.0) 11/20/16 07:46 MCHC 34.5 g/dl (31.0-37.0) 11/20/16 07:46 RDW 15.6 % (11.5-14.5) H 11/20/16 07:46 Plt Count 155 10^3/uL (120.0-450.0) 11/20/16 07:46 MPV 10.3 fl (7.0-11.0) 11/20/16 07:46 Gran % 54.6 % (50.0-68.0) 11/20/16 07:46 Lymph % (Auto) 30.6 % (22.0-35.0) 11/20/16 07:46 [place] % (Auto) 12.4 % (1.0-6.0) H 11/20/16 07:46 Eos % (Auto) 1.9 % (1.5-5.0) 11/20/16 07:46 Baso % (Auto) 0.5 % (0.0-3.0) 11/20/16 07:46 Gran # 4.06 (1.4-6.5) 11/20/16 07:46 Lymph # 2.3 (1.2-3.4) 11/20/16 07:46 [place] # 0.9 (0.1-0.6) H 11/20/16 07:46 Eos # 0.1 (0.0-0.7) 11/20/16 07:46 Baso # 0.04 K/mm3 (0.0-2.0) 11/20/16 07:46 pCO2 36 mm/Hg (35-45) 11/14/16 09:50 pO2 59.0 mm/Hg (80-100) L 11/14/16 09:50 HCO3 20.3 mmol/L (21-28) L 11/14/16 09:50 ABG pH 7.36 (7.35-7.45) 11/14/16 09:50 ABG Total CO2 21.4 mmol.L (22-28) L 11/14/16 09:50 ABG O2 Saturation 94.3 % (95-98) L 11/14/16 09:50 ABG O2 Content 9.0 ML/dl (15-23) L 11/14/16 09:50 ABG Base Excess -4.7 mmol/L (-2.0-3.0) L 11/14/16 09:50 ABG Hemoglobin 6.9 g/dL (11.7-17.4) L 11/14/16 09:50 ABG Carboxyhemoglobin 1.7 % (0.5-1.5) H 11/14/16 09:50 POC ABG HHb (Measured) 5.5 % (0-5) H 11/14/16 09:50 ABG Methemoglobin 1.1 % (0.0-3.0) 11/14/16 09:50 ABG O2 Capacity 9.5 mL/dl (16-24) L 11/14/16 09:50 Hgb O2 Saturation 91.6 % (95.0-98.0) L 11/14/16 09:50 FiO2 21.0 % 11/14/16 09:50 Sodium 138 mmol/L (132-148) 11/20/16 07:46 Potassium 4.5 mmol/L (3.6-5.0) 11/20/16 07:46 Chloride 97 mmol/L (95-110) 11/20/16 07:46 Carbon Dioxide 31 mmol/L (21-33) 11/20/16 07:46 Anion Gap 15 (10-20) 11/20/16 07:46 BUN 29 mg/dL (7-21) H 11/20/16 07:46 Creatinine 4.3 mg/dL (0.5-1.4) H 11/20/16 07:46 Est GFR ( Amer) 13 11/20/16 07:46 Est GFR (Non-Af Amer) 10 11/20/16 07:46 POC Glucose (mg/dL) 109 mg/dL (65-110) 11/18/16 16:07 Random Glucose 117 mg/dL (70-110) H 11/20/16 07:46 Hemoglobin A1c 5.6 % (4.2-6.5) 11/14/16 08:15 Calcium 8.6 mg/dL (8.4-10.5) 11/20/16 07:46 Phosphorus 5.2 mg/dL (2.5-4.5) H 11/19/16 06:30 Magnesium 1.8 mg/dL (1.7-2.2) 11/19/16 06:30 Iron 175 ug/dL (45-180) 11/15/16 05:00 TIBC 218 ug/dL (265-497) L 11/15/16 05:00 % Saturation 80 % (20-55) H 11/15/16 05:00 Ferritin 141.0 ng/mL 11/15/16 05:00 Total Bilirubin 0.4 mg/dL (0.2-1.3) 11/17/16 10:40 AST 36 U/L (15-39) 11/17/16 10:40 ALT 43 U/L (7-56) 11/17/16 10:40 Alkaline Phosphatase 76 U/L (38-133) 11/17/16 10:40 Lactate Dehydrogenase 715 U/L (333-699) H 11/14/16 08:15 Total Creatine Kinase 313 U/L (35-230) H 11/14/16 08:15 CK-MB (CK-2) 4.2 ng/mL (0.0-3.6) H 11/14/16 08:15 CK-MB (CK-2) % 1.3 % (2.5-3.0) L 11/14/16 08:15 Troponin I 0.08 ng/mL D 11/14/16 08:15 NT-Pro-B Natriuret Pep 23235 pg/mL (0-450) H 11/13/16 20:40 Total Protein 5.4 g/dL (5.8-8.3) L 11/17/16 10:40 Total Protein (PEP) 6.3 g/dL (6.1-8.1) 11/14/16 19:23 Albumin 2.8 g/dL (3.0-4.8) L 11/17/16 10:40 Albumin (PEP) 3.5 g/dL (3.8-4.8) L 11/14/16 19:23 Globulin 2.6 gm/dL 11/17/16 10:40 Albumin/Globulin Ratio 1.1 (1.1-1.8) 11/17/16 10:40 Kzmxe-7-Klefslokd 0.4 g/dL (0.2-0.3) H 11/14/16 19:23 Xepmz-3-Dylemgqje 0.7 g/dL (0.5-0.9) 11/14/16 19:23 Swlo-7-Dcbwuqxi 0.4 g/dL (0.4-0.6) 11/14/16 19:23 Xvgu-2-Ctawxxvn 0.4 g/dL (0.2-0.5) 11/14/16 19:23 Gamma Globulins 1.0 g/dL (0.8-1.7) 11/14/16 19:23 Abnorm Protein Band 1 TEST NOT PERFORMED 11/14/16 19:23 Abnorm Protein Band 2 TEST NOT PERFORMED 11/14/16 19:23 Abnorm Protein Band 3 TEST NOT PERFORMED 11/14/16 19:23 Triglycerides 121 mg/dL (35-160) 11/15/16 05:00 Cholesterol 149 mg/dL (130-200) 11/15/16 05:00 LDL Cholesterol Direct 75 mg/dL (0-129) 11/15/16 05:00 HDL Cholesterol 34 mg/dL (29-60) 11/15/16 05:00 Lipase 116 U/L (23-300) 11/13/16 20:40 Vitamin B12 846 pg/mL (239-931) 11/15/16 05:00 25-OH Vitamin D Total < 12.8 NG/ML (30.0-100.0) L 11/14/16 19:23 Folate 11.0 ng/mL 11/15/16 05:00 TSH 3rd Generation 2.89 mIU/mL (0.46-4.68) 11/14/16 08:15 PTH Intact Whole Molec 1256 pg/mL (14-64) H 11/14/16 19:23 Urine Color Yellow (YELLOW) 11/17/16 18:28 Urine Appearance Sl cloudy (CLEAR) 11/17/16 18:28 Urine pH 6.0 (4.7-8.0) 11/17/16 18:28 Ur Specific [place] 1.020 (1.005-1.035) 11/17/16 18:28 Urine Protein >=300 mg/dL (<30 mg/dL) H 11/17/16 18:28 Urine Glucose (UA) Negative mg/dL (NEGATIVE) 11/17/16 18:28 Urine Ketones Negative mg/dL (NEGATIVE) 11/17/16 18:28 Urine Blood Negative (NEGATIVE) 11/17/16 18:28 Urine Nitrate Negative (NEGATIVE) 11/17/16 18:28 Urine Bilirubin Negative (NEGATIVE) 11/17/16 18:28 Urine Urobilinogen 0.2 E.U./dL (<1 E.U./dL) 11/17/16 18:28 Ur Leukocyte Esterase Moderate Barbi/uL (NEGATIVE) H 11/17/16 18:28 Urine RBC 15 - 20 /hpf (0-2) 11/17/16 18:28 Urine WBC 2 - 5 /hpf (0-6) 11/17/16 18:28 Ur Epithelial Cells 6 - 8 /hpf (0-5) 11/17/16 18:28 Amorphous Sediment Few 11/17/16 18:28 Urine Bacteria Mod (NEG) 11/17/16 18:28 Fine Granular Casts 0 - 2 /hpf (0-2) 11/17/16 18:28 Waxy Casts 0-1 /hpf 11/17/16 18:28 Urine Eosinophils Negative 11/14/16 02:35 Ur Random Creatinine 45 mg/dL 11/14/16 02:35 U Random Total Protein 4403 mg/g creat (21-161) H 11/18/16 06:17 Ur Random Sodium 104 meq/L 11/14/16 02:35 Urine Microalbumin > 950.0 mg/L (0.0-16.6) H 11/18/16 06:15 Urine Chloride 91 mmol/L (32-290) 11/14/16 02:35 Stool Occult Blood Negative (NEGATIVE) 11/14/16 10:30 SURJIT & SPEP Interp See note 11/14/16 19:23 Serum Immunofixation See note 11/14/16 19:23 JOSE ALBERTO Screen Negative (Negative) 11/14/16 19:23 ANCA Screen Negative (NEGATIVE) 11/14/16 19:23 c-ANCA Titer TNP 11/14/16 19:23 Proteinase 3 (PR3) <1.0 AI (<1.0) 11/14/16 19:23 p-ANCA Titer TNP 11/14/16 19:23 Atypical p-ANCA Titer TNP 11/14/16 19:23 Myeloperoxidase Ab <1.0 AI (<1.0) 11/14/16 19:23 Double Strand DNA Ab <1 IU/mL 11/14/16 19:23 Complement C3 91.0 mg/dL (88.0-165.0) 11/14/16 19:23 Complement C4 32.5 mg/dL (14.0-44.0) 11/14/16 19:23 Hepatitis A IgM Ab Negative (NEGATIVE) 11/14/16 19:23 Hep Bs Antigen Negative (NEGATIVE) 11/14/16 19:23 Hep B Core IgM Ab Negative (NEGATIVE) 11/14/16 19:23 Hepatitis C Antibody Negative (NEGATIVE) 11/14/16 19:23 HIV 1&2 Ag/Ab, 4th Gen Nonreactive (Nonreactive) 11/15/16 09:22 Blood Type A POSITIVE 11/14/16 10:04 Blood Type Confirm A POSITIVE 11/14/16 10:25 Antibody Screen Negative 11/14/16 10:04 Crossmatch See Detail 11/14/16 10:04 BBK History Checked No verified bt 11/14/16 10:04 - Hospital Course Hospital Course: 61 year old female with past medical history of DM, HTN, hypercholesterolemia is admitted for new onset of ESRD and CHF exacerbation. On admission, patient was found to have very poor kidney function. Nephrology was consulted and she was taken for emergent hemodialysis after having a perm cath placement. Patient also had elevated BNP on presentation. Cardiology was consulted and echo was done. Echo showed normal LV function and structure with mild LV diastolic dysfunction and mild AV thickening and moderate pulm HTN. Patient had multiple sessions of dialysis and her symptoms improved. Patient was also found to have secondary hyperparathyroidism, low vitamin D level and anemia likely all secondary to ESRD. Patient received 1 unit of PRBC on admission and the rest of the hospital course, her Hgb remained stable. Patient received IV vit D supplementation and will receive weekly vitamin D supplements. Prior to discharge, patient had an AV fistula placed in left arm. Patient was discharged with the perm cath for dialysis. Patient was set up for HD at the [facility] center on T, Th and Sat at 2 pm. - Date & Time of H&P Date of H&P: 11/20/16 Time of H&P: 13:44 Discharge Exam - Head Exam Head Exam: ATRAUMATIC - Eye Exam Eye Exam: EOMI - Respiratory Exam Respiratory Exam: Clear to PA & Lateral, NORMAL BREATHING PATTERN. absent: Rales, Rhonchi, Wheezes - Cardiovascular Exam Cardiovascular Exam: REGULAR RHYTHM, +S1, +S2. absent: Diastolic murmur, Gallop , Rubs, Systolic Murmur - GI/Abdominal Exam GI & Abdominal Exam: Normal Bowel Sounds, Soft, Unremarkable. absent: Distended , Firm, Guarding, Rigid, Tenderness - Extremities Exam Additional comments: no edema or tenderness - Neurological Exam Neurological exam: Alert, Oriented x3 - Psychiatric Exam Psychiatric exam: Flat Affect, Homicidal Ideation, Manic, Normal Affect, Normal Mood Discharge Plan - Discharge Medications Prescriptions: Carvedilol [Coreg] 12.5 mg PO BID #30 tab Docusate [Colace] 100 mg PO BID #20 cap Ergocalciferol [Drisdol 50,000 Intl Units Cap] 1 cap PO Q7D #4 cap Famotidine [Pepcid] 20 mg PO DAILY #30 tab Vitamin B Complex/Vit C/Folic [Nephro-Mini] 1 tab PO DAILY #30 tab - Follow Up Plan Condition: GOOD Disposition: HOME/ ROUTINE Instructions: Hemodialysis (DC), Dialysis Diet (DC), Arteriovenous Fistula Creation for Hemodialysis (DC), End Stage Kidney Disease (DC) Additional Instructions: Patient is to follow up with PMD upon discharge. Patient is scheduled for dialysis on Thursday, , Thursday at 2 pm at [facility]. Patient is discharged with the following medications: Coreg 12.5 mg PO BID, Colace 100 mg po BID, Ergocalciferol 1 cap PO weekly, Pepcid, Nephro-Mini. Medications will be delivered to patient before discharge. Referrals: Samantha Camargo DO [Primary Care Provider] - <Jessica Nair - Last Filed: 11/20/16 16:03> Provider - Provider Date of Admission: 11/13/16 21:50 Attending physician: Jessica Nair MD Primary care physician: Samantha Camargo DO Hospital Course - Lab Results Lab Results: Micro Results 11/14/16 16:35 Nose MRSA Culture (Admit) - Final MRSA NOT DETECTED Most Recent Lab Values WBC 7.4 10^3/ul (4.5-11.0) 11/20/16 07:46 RBC 3.75 10^6/uL (3.5-6.1) 11/20/16 07:46 Hgb 9.8 gm/dL (12.0-16.0) L 11/20/16 07:46 Hct 28.4 % (36.0-48.0) L 11/20/16 07:46 MCV 75.7 fL (80.0-105.0) L 11/20/16 07:46 MCH 26.1 pg (25.0-35.0) 11/20/16 07:46 MCHC 34.5 g/dl (31.0-37.0) 11/20/16 07:46 RDW 15.6 % (11.5-14.5) H 11/20/16 07:46 Plt Count 155 10^3/uL (120.0-450.0) 11/20/16 07:46 MPV 10.3 fl (7.0-11.0) 11/20/16 07:46 Gran % 54.6 % (50.0-68.0) 11/20/16 07:46 Lymph % (Auto) 30.6 % (22.0-35.0) 11/20/16 07:46 [place] % (Auto) 12.4 % (1.0-6.0) H 11/20/16 07:46 Eos % (Auto) 1.9 % (1.5-5.0) 11/20/16 07:46 Baso % (Auto) 0.5 % (0.0-3.0) 11/20/16 07:46 Gran # 4.06 (1.4-6.5) 11/20/16 07:46 Lymph # 2.3 (1.2-3.4) 11/20/16 07:46 [place] # 0.9 (0.1-0.6) H 11/20/16 07:46 Eos # 0.1 (0.0-0.7) 11/20/16 07:46 Baso # 0.04 K/mm3 (0.0-2.0) 11/20/16 07:46 pCO2 36 mm/Hg (35-45) 11/14/16 09:50 pO2 59.0 mm/Hg (80-100) L 11/14/16 09:50 HCO3 20.3 mmol/L (21-28) L 11/14/16 09:50 ABG pH 7.36 (7.35-7.45) 11/14/16 09:50 ABG Total CO2 21.4 mmol.L (22-28) L 11/14/16 09:50 ABG O2 Saturation 94.3 % (95-98) L 11/14/16 09:50 ABG O2 Content 9.0 ML/dl (15-23) L 11/14/16 09:50 ABG Base Excess -4.7 mmol/L (-2.0-3.0) L 11/14/16 09:50 ABG Hemoglobin 6.9 g/dL (11.7-17.4) L 11/14/16 09:50 ABG Carboxyhemoglobin 1.7 % (0.5-1.5) H 11/14/16 09:50 POC ABG HHb (Measured) 5.5 % (0-5) H 11/14/16 09:50 ABG Methemoglobin 1.1 % (0.0-3.0) 11/14/16 09:50 ABG O2 Capacity 9.5 mL/dl (16-24) L 11/14/16 09:50 Hgb O2 Saturation 91.6 % (95.0-98.0) L 11/14/16 09:50 FiO2 21.0 % 11/14/16 09:50 Sodium 138 mmol/L (132-148) 11/20/16 07:46 Potassium 4.5 mmol/L (3.6-5.0) 11/20/16 07:46 Chloride 97 mmol/L (95-110) 11/20/16 07:46 Carbon Dioxide 31 mmol/L (21-33) 11/20/16 07:46 Anion Gap 15 (10-20) 11/20/16 07:46 BUN 29 mg/dL (7-21) H 11/20/16 07:46 Creatinine 4.3 mg/dL (0.5-1.4) H 11/20/16 07:46 Est GFR ( Amer) 13 11/20/16 07:46 Est GFR (Non-Af Amer) 10 11/20/16 07:46 POC Glucose (mg/dL) 109 mg/dL (65-110) 11/18/16 16:07 Random Glucose 117 mg/dL (70-110) H 11/20/16 07:46 Hemoglobin A1c 5.6 % (4.2-6.5) 11/14/16 08:15 Calcium 8.6 mg/dL (8.4-10.5) 11/20/16 07:46 Phosphorus 5.2 mg/dL (2.5-4.5) H 11/19/16 06:30 Magnesium 1.8 mg/dL (1.7-2.2) 11/19/16 06:30 Iron 175 ug/dL (45-180) 11/15/16 05:00 TIBC 218 ug/dL (265-497) L 11/15/16 05:00 % Saturation 80 % (20-55) H 11/15/16 05:00 Ferritin 141.0 ng/mL 11/15/16 05:00 Total Bilirubin 0.4 mg/dL (0.2-1.3) 11/17/16 10:40 AST 36 U/L (15-39) 11/17/16 10:40 ALT 43 U/L (7-56) 11/17/16 10:40 Alkaline Phosphatase 76 U/L (38-133) 11/17/16 10:40 Lactate Dehydrogenase 715 U/L (333-699) H 11/14/16 08:15 Total Creatine Kinase 313 U/L (35-230) H 11/14/16 08:15 CK-MB (CK-2) 4.2 ng/mL (0.0-3.6) H 11/14/16 08:15 CK-MB (CK-2) % 1.3 % (2.5-3.0) L 11/14/16 08:15 Troponin I 0.08 ng/mL D 11/14/16 08:15 NT-Pro-B Natriuret Pep 74417 pg/mL (0-450) H 11/13/16 20:40 Total Protein 5.4 g/dL (5.8-8.3) L 11/17/16 10:40 Total Protein (PEP) 6.3 g/dL (6.1-8.1) 11/14/16 19:23 Albumin 2.8 g/dL (3.0-4.8) L 11/17/16 10:40 Albumin (PEP) 3.5 g/dL (3.8-4.8) L 11/14/16 19:23 Globulin 2.6 gm/dL 11/17/16 10:40 Albumin/Globulin Ratio 1.1 (1.1-1.8) 11/17/16 10:40 Rdubb-3-Yicwsutks 0.4 g/dL (0.2-0.3) H 11/14/16 19:23 Qdkhr-6-Atjdjmfts 0.7 g/dL (0.5-0.9) 11/14/16 19:23 Qtoa-2-Nhzdtlea 0.4 g/dL (0.4-0.6) 11/14/16 19:23 Olhj-9-Lqvvhnqq 0.4 g/dL (0.2-0.5) 11/14/16 19:23 Gamma Globulins 1.0 g/dL (0.8-1.7) 11/14/16 19:23 Abnorm Protein Band 1 TEST NOT PERFORMED 11/14/16 19:23 Abnorm Protein Band 2 TEST NOT PERFORMED 11/14/16 19:23 Abnorm Protein Band 3 TEST NOT PERFORMED 11/14/16 19:23 Triglycerides 121 mg/dL (35-160) 11/15/16 05:00 Cholesterol 149 mg/dL (130-200) 11/15/16 05:00 LDL Cholesterol Direct 75 mg/dL (0-129) 11/15/16 05:00 HDL Cholesterol 34 mg/dL (29-60) 11/15/16 05:00 Lipase 116 U/L (23-300) 11/13/16 20:40 Vitamin B12 846 pg/mL (239-931) 11/15/16 05:00 25-OH Vitamin D Total < 12.8 NG/ML (30.0-100.0) L 11/14/16 19:23 Folate 11.0 ng/mL 11/15/16 05:00 TSH 3rd Generation 2.89 mIU/mL (0.46-4.68) 11/14/16 08:15 PTH Intact Whole Molec 1256 pg/mL (14-64) H 11/14/16 19:23 Urine Color Yellow (YELLOW) 11/17/16 18:28 Urine Appearance Sl cloudy (CLEAR) 11/17/16 18:28 Urine pH 6.0 (4.7-8.0) 11/17/16 18:28 Ur Specific [place] 1.020 (1.005-1.035) 11/17/16 18:28 Urine Protein >=300 mg/dL (<30 mg/dL) H 11/17/16 18:28 Urine Glucose (UA) Negative mg/dL (NEGATIVE) 11/17/16 18:28 Urine Ketones Negative mg/dL (NEGATIVE) 11/17/16 18:28 Urine Blood Negative (NEGATIVE) 11/17/16 18:28 Urine Nitrate Negative (NEGATIVE) 11/17/16 18:28 Urine Bilirubin Negative (NEGATIVE) 11/17/16 18:28 Urine Urobilinogen 0.2 E.U./dL (<1 E.U./dL) 11/17/16 18:28 Ur Leukocyte Esterase Moderate Barbi/uL (NEGATIVE) H 11/17/16 18:28 Urine RBC 15 - 20 /hpf (0-2) 11/17/16 18:28 Urine WBC 2 - 5 /hpf (0-6) 11/17/16 18:28 Ur Epithelial Cells 6 - 8 /hpf (0-5) 11/17/16 18:28 Amorphous Sediment Few 11/17/16 18:28 Urine Bacteria Mod (NEG) 11/17/16 18:28 Fine Granular Casts 0 - 2 /hpf (0-2) 11/17/16 18:28 Waxy Casts 0-1 /hpf 11/17/16 18:28 Urine Eosinophils Negative 11/14/16 02:35 Ur Random Creatinine 45 mg/dL 11/14/16 02:35 U Random Total Protein 4403 mg/g creat (21-161) H 11/18/16 06:17 Ur Random Sodium 104 meq/L 11/14/16 02:35 Urine Microalbumin > 950.0 mg/L (0.0-16.6) H 11/18/16 06:15 Urine Chloride 91 mmol/L (32-290) 11/14/16 02:35 Stool Occult Blood Negative (NEGATIVE) 11/14/16 10:30 SURJIT & SPEP Interp See note 11/14/16 19:23 Serum Immunofixation See note 11/14/16 19:23 JOSE ALBERTO Screen Negative (Negative) 11/14/16 19:23 ANCA Screen Negative (NEGATIVE) 11/14/16 19:23 c-ANCA Titer TNP 11/14/16 19:23 Proteinase 3 (PR3) <1.0 AI (<1.0) 11/14/16 19:23 p-ANCA Titer TNP 11/14/16 19:23 Atypical p-ANCA Titer TNP 11/14/16 19:23 Myeloperoxidase Ab <1.0 AI (<1.0) 11/14/16 19:23 Double Strand DNA Ab <1 IU/mL 11/14/16 19:23 Complement C3 91.0 mg/dL (88.0-165.0) 11/14/16 19:23 Complement C4 32.5 mg/dL (14.0-44.0) 11/14/16 19:23 Hepatitis A IgM Ab Negative (NEGATIVE) 11/15/16 05:00 Hep Bs Antigen Negative (NEGATIVE) 11/15/16 05:00 Hep B Core IgM Ab Negative (NEGATIVE) 11/15/16 05:00 Hepatitis C Antibody Negative (NEGATIVE) 11/15/16 05:00 HIV 1&2 Ag/Ab, 4th Gen Nonreactive (Nonreactive) 11/15/16 09:22 Blood Type A POSITIVE 11/14/16 10:04 Blood Type Confirm A POSITIVE 11/14/16 10:25 Antibody Screen Negative 11/14/16 10:04 Crossmatch See Detail 11/14/16 10:04 BBK History Checked No verified bt 11/14/16 10:04 Attending/Attestation - Attestation I have personally seen and examined this patient.: Yes I have fully participated in the care of the patient.: Yes I have reviewed all pertinent clinical information, including history, physical exam and plan: Yes Notes (Text): I have seen and examined patient at bedside. Agree with the residents note with the following additions/ exceptions: Briefly, this is 61 year old female with history of DM-2, HTN, dyslipidemia, non compliance with medications who got admitted for evaluation of shortness of breath and found to have volume overload secondary to acute on chronic renal failure, secondary hyperparathyroidism, anemia and thrombocytopenia. HIV, hep b, hep c and JOSE ALBERTO negative. Complements normal. No plan for renal biopsy. Most likely ESRD is due to long standing HTN . Patient has been tolerating hemodialysis. Continue coreg. Hba1c is 5.6. Patient was not using insulin or any other hypoglycemics at home. Echo revealed mild LV diastolic dysfunction and moderate pulmonary hypertension. Renal ultrasound unremarkable. Outpatient HD already set up. Patient had AV fistula placement today. Upon discharge the patient will follow-up with PMD and Dr Miller. Dr Jessica Nair
[2016-11-20 14:18] VITALS: BP 145/61; PULSE 67; RESP 17
--- NOTE | 2016-11-20 15:26 | CP.PCM.PN ---
Subjective - Date & Time of Evaluation Date of Evaluation: 11/20/16 Time of Evaluation: 11:55 - Subjective Subjective: Follow up Nephrology Consultation Note Assessment: Appears to have likely ESRD (likely diabetic nephropathy) with uremia as with severe anemia, Hyperphosphatemia, NAGMA, fluid overload. Long standing hx of DM with retinopathy, Hypertension vitamin D Def (<12) with hyperphosphatemia Phos 5.6 and secondary hyperparathyroidism PTH 1256 Plan She will have TTS schedule as outpt but will come for 1st outpt treatment on thursday. s/p blood transfusion Hb better. TSAT 80%, given Aranesp 60 mcg 11/15/16 then weekly supplement with Vit D weekly x 8 dose and hectorol 4 mcg IV with HD Appreciate vascular surgery for AVF surgery. Hypertension control with meds as ordered. ordered losartan all gn work up negative, unlikely to pursue invasive work up such as kidney biopsy as pt with long standing hx of DM/HTN and CKD with cr ~ 2 approx 2 years ago and lack of follow up since then). Reviewing the results as they become available. so far hiv/hep b/c neg, teressa/anca /electrophoresis neg, normal complements. Dose meds/antibiotics for reduced GFR <10 and dialysis status. Avoid fleets enema/magnesium based laxatives. Avoid nephrotoxins/NSAIDs/ iodinated contrast ( unless needed emergently). Glycemic control. Further work up for as per primary team. pt planned for d/c today. stable from renal perspective. Thanks for allowing me to participate in care of your patient. Please call if any Qs. Dr Delroy Miller Office: [phone] Subjective: Noted events overnight. Patients seen in PACU. sleepy s/p AVF surgery. Physical Examination: General Appearance: Comfortable, in no acute respiratory distress, co- operative. Vitals reviewed and noted as below Lungs: Normal respiratory rate/effort. Breath sounds bilateral equal and clearer Heart: Normal rate. s1s2 normal. No rub or gallop. Extremities: no edema. Neurological: Patient is sleepy s/p surgery, in PACU Skin: Warm and dry. Normal turgor. No rash. Palpitation: Normal elasticity for age Abdomen: Abdomen is soft. Bowel sounds +. There is no abdominal tenderness, no guarding/rigidity or organomegaly : kidney or bladder not palpable Access: permacath. LUE AVF with bruit + Labs/imaging reviewed. Past medical history, past surgical history, family history, social history, allergy reviewed Objective - Vital Signs/Intake and Output Vital Signs (last 24 hours): Temp Pulse Resp BP Pulse Ox 98 F 67 17 145/61 97 11/20/16 12:50 11/20/16 12:50 11/20/16 12:50 11/20/16 12:50 11/20/16 12:50 Intake and Output: 11/20/16 11/20/16 06:59 18:59 Intake Total 600 240 Output Total 100 0 Balance 500 240 - Medications Medications: Current Medications Acetaminophen (Tylenol 325mg Tab) 650 mg PO Q4 PRN PRN Reason: Pain, Mild (1-3) Last Admin: 11/14/16 23:11 Dose: 650 mg Carvedilol (Coreg) 12.5 mg PO BID [facility] Last Admin: 11/19/16 17:05 Dose: 12.5 mg Docusate Sodium (Colace) 100 mg PO BID [facility] Last Admin: 11/19/16 17:05 Dose: 100 mg Doxercalciferol (Hectorol) 4 mcg IV MWF [facility] Last Admin: 11/17/16 17:23 Dose: Not Given Ergocalciferol (Drisdol 50,000 Intl Units Cap) 1 cap PO Q7D [facility] Last Admin: 11/15/16 18:14 Dose: 1 cap Famotidine (Pepcid) 20 mg PO DAILY [facility] Last Admin: 11/19/16 17:05 Dose: 20 mg Heparin Sodium (Porcine) (Heparin) 5,000 units SC Q12 [facility] PRN Reason: Protocol Last Admin: 11/19/16 22:45 Dose: 5,000 units Heparin Sodium (Porcine) (Heparin (Renal)) 2,000 units ICA MOWEFR [facility] Last Admin: 11/19/16 12:18 Dose: 2,000 units Heparin Sodium (Porcine) (Heparin (Renal)) 2,200 units ICV MOWEFR [facility] Last Admin: 11/19/16 12:18 Dose: 2,200 units Hydralazine HCl (Apresoline) 10 mg IVP Q6 PRN PRN Reason: Systolic Blood Pressure Last Admin: 11/15/16 09:38 Dose: 10 mg Losartan Potassium (Cozaar) 25 mg PO DAILY [facility] Polyethylene Glycol (Miralax) 17 gm PO DAILY [facility] Last Admin: 11/19/16 17:05 Dose: 17 gm Tramadol HCl (Ultram) 50 mg PO TID PRN PRN Reason: Pain, moderate (4-7) Vitamin B Complex/Vit C/Folic Acid (Nephro-Mini) 1 tab PO DAILY [facility] Last Admin: 11/19/16 17:05 Dose: 1 tab - Labs Labs: 11/20/16 07:46 11/20/16 07:46
--- NOTE | 2016-11-20 16:44 | OP ---
PROCEDURE DATE: 11/20/2016 SURGEON: Kris Reynaga MD DECISION SUPPORT MANAGER: Tressa Irving PREOPERATIVE DIAGNOSIS: End-stage renal disease with need for senior living hemodialysis access. POSTOPERATIVE DIAGNOSIS: End-stage renal disease with need for senior living hemodialysis access. PROCEDURE: Left basilic vein to brachial artery AV fistula creation. ANESTHESIA: LMA. INDICATION FOR SURGERY: The patient is a 61-year-old woman who was recently admitted to the hospital with congestive heart failure in the setting of end-stage renal disease. The patient was placed on hemodialysis through a right-sided tunneled catheter with overall improvement in her clinical status. Nephrology team anticipated senior living need for hemodialysis and, as such, requested vascular surgica l consultation for AV fistula or graft placement. The patient was evaluated by Vascular Surgery serv ice and placement of senior living hemodialysis access in the form of AV graft or fistula in the left uppe r extremity was offered to the patient. Risks and benefits of surgery were clearly explained to the patient. I specifically mentioned the risk of fistula non-maturation. I mentioned the risks of infe ction and need for additional procedures. I emphasized the risk of left upper extremity ischemia, wh ich would necessitate fistula modification or ligation. The patient underwent preoperative vein hortencia ing in the left upper extremity. It showed small left cephalic vein which did not appear suitable in caliber for fistula creation. Left basilic vein, however, was borderline in size for AV fistula cre ation, measuring close to 3 mm. Surgical plan was to perform preoperative ultrasound in the Operatin g Room and proceeded with left upper extremity AV fistula or graft placement based on the ultrasound results. The patient understood surgical approach as well as the risks and benefits of the operation . She signed informed consent and chose to proceed with the operation. DESCRIPTION OF PROCEDURE: The patient was brought to the Operating Room and placed on the table. Le ft upper extremity was placed on the side table. It was marked with my initials as the correct surgi gisella side prior to coming to the OR. Surgical debriefing was conducted. The proper site of the opera tion as well as correct surgical procedure and patient's identity were confirmed between the patient and members of medical team. Preoperative ultrasound was done using portable ultrasound. It showed small in size left cephalic vein clearly unsuitable for fistula creation. Left basilic vein appeared to be reasonable in caliber, measuring 3 mm above the elbow crease all the way to left axilla. Left basilic vein was easily compressible with no signs of thrombosis. Left upper extremity was prepped and draped in sterile fashion. The left brachial pulse was clearly palpable just above the elbow cre ase. Approximately 4 cm curvilinear incision was made extending from the medial aspect of the left a rm just above the elbow crease. Dissection was carried through the subcutaneous tissues using electr ocautery and the left basilic vein was identified. It appeared to be 3 mm or greater in diameter and was nice and soft. It was easily compressible. Next, the left brachial artery was found in its usu al anatomic location. Next, 3 cm segment of the left basilic vein was dissected with ligation of sev eral side branches. Attention was turned to left brachial artery. It was dissected circumferentiall y and approximately 2 cm segment of the artery was secured between vessel loops. Artery was free of calcification and had excellent bounding pulse. The patient was systemically heparinized with 5000 u nits of heparin intravenously. After 5 minutes on heparin, the left basilic vein was divided just ab ove the elbow crease. Proximal segment of the vein was freed up from surrounding tissues and was danica anup left brachial artery without tension. Left basilic vein was flushed with heparinized saline an d 3-Khmer Ronnie was advanced into the left basilic vein going proximally for approximately 30 cm w ithout any resistance. Next, left brachial artery was clamped between 2 vessel loops. A 5 mm arteri otomy was made. Next, basilic vein was tailored to match the size of arteriotomy. The care was take n to prevent twisting of the vein and preserved proper orientation. A 6-0 Prolene stitch was used to create AV fistula anastomosis in running fashion. Prior to completion of anastomosis, it was flushe d with heparinized saline and was back bled. Next, anastomosis was completed and circulation to the left hand was restored. There was excellent left radial pulse, as well as clearly palpable thrill in the basilic vein fistula. Next, the wound was irrigated and closed in 2 layers using 3-0 Vicryl for subcutaneous tissues and 4-0 Monocryl to skin. Sterile dressing was applied. The patient was extubated in the Operating Room and transferred to the PACU in the satisfactory condi tion. Kris Reynaga MD cc: [id number] TT: 11/20/2016 16:44:00 dn
== END 2016-11-20 15:28 | disposition home or self-care (01) | DRG 264 ==
LOC: ED 18:25 → ERH 21:50 → CCU 11-14 16:20 → 2RSO 11-16 00:32 → 5RNO 11-18 19:12
PROVIDERS: ADMIT Internal Medicine; ATTEND Hospitalist
PROC: 5A1D60Z (ICD-10-PCS; 2016-11-14)
PROC: 05HM33Z Insertion of Infusion Device into Right Internal Jugular Vein, Percutaneous Approach (ICD-10-PCS; 2016-11-14)
PROC: 03180ZD Bypass Left Brachial Artery to Upper Arm Vein, Open Approach (ICD-10-PCS; principal; 2016-11-20 09:30)
DX: I13.2 Hypertensive heart and chronic kidney disease with heart failure and with stage 5 chronic kidney disease, or end stage renal disease (principal); N17.9 Acute kidney failure, unspecified; N18.6 End stage renal disease; I50.32 Chronic diastolic (congestive) heart failure; D69.59 Other secondary thrombocytopenia; E11.21 Type 2 diabetes mellitus with diabetic nephropathy; N25.81 Secondary hyperparathyroidism of renal origin; E11.22 Type 2 diabetes mellitus with diabetic chronic kidney disease; I27.2 Other secondary pulmonary hypertension; E11.65 Type 2 diabetes mellitus with hyperglycemia; E83.39 Other disorders of phosphorus metabolism; E87.5 Hyperkalemia; E78.00 Pure hypercholesterolemia, unspecified; E78.5 Hyperlipidemia, unspecified; D63.1 Anemia in chronic kidney disease; E11.319 Type 2 diabetes mellitus with unspecified diabetic retinopathy without macular edema; B19.20 Unspecified viral hepatitis C without hepatic coma; I25.10 Atherosclerotic heart disease of native coronary artery without angina pectoris; E55.9 Vitamin D deficiency, unspecified; R04.0 Epistaxis; Z79.4 Long term (current) use of insulin; Z91.14 Patient's other noncompliance with medication regimen; Z91.19 Patient's noncompliance with other medical treatment and regimen; Z90.710 Acquired absence of both cervix and uterus

== ENCOUNTER 2017-04-08 06:13 | Day surgery (SDC) | payer MEDICARE ==
[2017-04-08 06:54] VITALS: BMI 540.8
[2017-04-08] MEDS ORDERED: Bupivacaine 0.5% Inj(30mL) ONE (07:21)
[2017-04-08] MEDS ORDERED: Propofol 10 mg/ml Inj (20 ML) ONE (08:01)
[2017-04-08] MEDS ORDERED: Midazolam 2 MG/2 ML VIAL ONE (08:02)
[2017-04-08] MEDS ORDERED: Etomidate 20 mg/10ml Inj IV ONE (08:03)
[2017-04-08] MEDS ORDERED: HYDROmorphone 0.5 mg/0.5 ml ISec IVP PRN ×2 (08:23→08:25)
[2017-04-08] MEDS ORDERED: Sodium Chloride 0.9% 1,000 ML IV SCH (08:30)
[2017-04-08] MEDS ORDERED: ePHEDrine 50 mg/ml Inj ONE (08:47)
[2017-04-08] MEDS ORDERED: Iohexol 240 (50 ml) ONE ×2 (08:50→09:09)
[2017-04-08] MEDS ORDERED: Oxycodone/Acetaminophen 5/325 mg Tab PO PRN (11:51)
--- NOTE | 2017-04-08 11:54 | PCM.SURG1 ---
Surgeon's Initial Post Op Note - Surgeon's Notes Surgeon: Dr. Edouard Cotton Grader: Magaly Shin PGY2 Type of Anesthesia: General LMA Pre-Operative Diagnosis: ESRD needing HD Operative Findings: L Weak bruit, AVF stenosis Post-Operative Diagnosis: Same Operation Performed: Transposition of L brachi-basilic AVF, fistulogram, balloon angioplasty Specimen/Specimens Removed: None Estimated Blood Loss: EBL {In ML}: 50 Blood Products Given: N/A Drains Used: No Drains Post-Op Condition: Good Date of Surgery/Procedure: 04/08/17 Time of Surgery/Procedure: 11:54
[2017-04-08] MEDS ORDERED: HYDROmorphone 0.5 mg/0.5 ml ISec ONE (12:13)
[2017-04-08 12:50] VITALS: PULSE 82
[2017-04-08 13:05] VITALS: RESP 18; TEMP 97.6
[2017-04-08 13:50] VITALS: BP 142/59; O2SAT 97
--- NOTE | 2017-04-08 14:14 | RAD ---
PROCEDURE: Fluoroscopy over 1 hour HISTORY: LT AV Fistula COMPARISON: TECHNIQUE: Fluoroscopy was provided in the operating room. 222 seconds of fluoroscopy time were used. Twenty-four separate angiographic runs were performed. FINDINGS: Multiple angiographic images were performed of an AV fistula in the left upper arm. A balloon angioplasty was performed IMPRESSION: As above
--- NOTE | 2017-04-16 18:37 | OP ---
PROCEDURE DATE: 04/08/2017 PREOPERATIVE DIAGNOSIS: End-state renal disease. POSTOPERATIVE DIAGNOSIS: End-state renal disease. PROCEDURES: 1. Superficialization of left brachiobasilic AV fistula. 2. Venogram of the left brachiobasilic AV fistula. 3. Angioplasty of the venous site and the arterial site of the fistula using 5 x 60 and 4 x 60 mm balloon. ANESTHESIA: General anesthesia. COMPLICATIONS: No complications INDICATIONS FOR PROCEDURE: Mrs. Burns is a 61-year-old female patient with multiple medical problems including end-state renal disease. The patient has very small veins and ultrasound was done for her identifying the basilic vein, the only vein can be used. The patient underwent left brachiobasilic AV fistula, which went uneventfully. Followup in the office showed that there is still a good thrill in the fistula. So, the patient was brought for superficiliation of the AV fistula. DESCRIPTION OF PROCEDURE: The patient came to the operating room. She was lying in a supine position. She was prepped and draped in the usual sterile fashion. General anesthesia was given. We started with incision of the proximal border of the fistula. The incision was carried down to the subcutaneous tissue. Antibiotic via the fistula. We started to extend incision along the fistula from the arterial side up to the axilla and we dissected the fistula and ligated the branches coming out of the fistula and we cut between LigaSure. We continued up to the axilla. The fistula has multiple areas of severely stenotic part, which is long segment in the middle of the fistula and also has a very low thrill, in the proximal part also we found it weak in flow. So, at that time, we decided to angioplasty the fistula. We obtained the needed instrument and sheath and a small incision was made in the proximal part of the fistula and incision was used to insert the wire and the wire, micropuncture needle and micropuncture sheath and wire there. Wire went mostly up to the superior vena cava. Over the wire, we inserted a sheath and inside the sheath inserted 4 mm x 60 balloon and I angioplastied this area after heparin was given, 5000 units of heparin and five minutes we waited until the heparin is effective and angioplasty of the area done with 4 mm and venogram was done, which showed patency, was little bit recoiled in certain areas. I used 5 x 60 mm balloon and angioplasty to the area. The vein was so thin at 5 mm, so I did not want to rupture, so I did not go higher level. Irrigated with saline solution. After that, I passed the wire on the other direction of the arterial side and over the wire, I passed the sheath and through this sheath I brought over the wire, wire passed through the brachial artery and I used 4 x 61 mm balloon to angioplasty the ostial anastomosis and the proximal part of the fistula. After that, I went up by the 5 x 60 mm balloon and I angioplastied inside the fistula. There was a very good thrill, there are multiple areas of in the vein, still very thin and in other areas, slight recoil in it, but with a good flow. We irrigated with heparin saline and after that, we removed the sheath and I closed the opening using Prolene 6-0. We irrigated the wound several times with bacitracin solution and after I checked the thrill and the flow, I closed the arm using 2-0 Vicryl for the fascia and we left the skin and made a dissection under the skin to make it thinner layer and space between the skin and the fascia underneath to highlight the fistula in a lazy C-shape and I fixed in place using 6-[address], amenable for dialysis. After that, I closed the skin using sylvester. No complications. The patient tolerated the procedure well and there was a good thrill in the fistula after surgery. The patient will be followed as an outpatient. I am still worried about a couple of areas, which in size are small in spite of the angioplasty and everything, so I we will follow up and see if this will continue or it will need anymore intervention. Irais Edouard MD
== END 2017-04-08 16:00 | disposition home or self-care (01) ==
LOC: SDS 06:13
PROVIDERS: ATTEND Surgery
DX: N18.6 End stage renal disease (principal); Z99.2 Dependence on renal dialysis
CPT/HCPCS: 36415; 36902; 84132; C1726; C1769; C1894; J0690; J1170; J1644 ×2; J2001; J2250; J2704; J3010; J7040; J7120; Q9966

== ENCOUNTER 2017-06-02 09:39 | Day surgery (SDC) | payer MEDICARE ==
[2017-06-02 11:31] LABS: CALCIUM 9.5 mg/dL (8.4-10.5); POTASSIUM 3.1 mmol/L (3.6-5.0)
[2017-06-02 13:58] VITALS: BMI 24.6
[2017-06-02] MEDS ORDERED: Absorbable Gelatin Sponge Size 100 ONE (14:33)
[2017-06-02] MEDS ORDERED: Thrombin Topical 20,000 Intl Units Spray Kit TOP ONE (14:34)
[2017-06-02] MEDS ORDERED: Lidocaine 1% Inj (20ml) ONE (14:34)
[2017-06-02] MEDS ORDERED: Bupivacaine 0.5% Inj(30mL) ONE (14:34)
[2017-06-02] MEDS ORDERED: Phenylephrine 10 mg/ml Inj ONE (16:10)
[2017-06-02] MEDS ORDERED: Protamine 50mg/5mL Inj IV ONE (17:42)
[2017-06-02] MEDS ORDERED: Morphine 2 mg/ml ISec IVP PRN (19:38)
[2017-06-02] MEDS ORDERED: Oxycodone/Acetaminophen 10/325 mg Tab PO PRN (19:43)
--- NOTE | 2017-06-02 19:43 | PCM.SURG1 ---
Surgeon's Initial Post Op Note - Surgeon's Notes Surgeon: Dr. Edouard Assorter Laundry: Magaly Shin PGY2 Type of Anesthesia: General Endo Pre-Operative Diagnosis: ESRD needing HD Operative Findings: patent artery and vein , distal pulses Post-Operative Diagnosis: Same Operation Performed: R upper arm arterio venous graft insertion: Axilary vein, brachial artery Specimen/Specimens Removed: none Estimated Blood Loss: EBL {In ML}: 20 Blood Products Given: N/A Drains Used: No Drains Post-Op Condition: Good Date of Surgery/Procedure: 06/02/17 Time of Surgery/Procedure: 19:43
[2017-06-02] MEDS ORDERED: Sodium Chloride 0.9% 1,000 ML IV SCH (19:45)
[2017-06-02] MEDS ORDERED: HYDROmorphone 1 mg/ml ISec IVP PRN (19:46)
[2017-06-02] MEDS ORDERED: HYDROmorphone 1 mg/ml ISec ONE (20:13)
[2017-06-03 07:03] VITALS: BP 147/70; PULSE 81; RESP 18; TEMP 98.5; O2SAT 100
--- NOTE | 2017-06-03 07:41 | CARD ---
APPROVED REPORT EKG Measurement Heart [id number] <Conclusion> Normal sinus rhythm Prolonged QT Abnormal ECG
--- NOTE | 2017-06-16 09:28 | OP ---
PROCEDURE DATE: 06/02/2017 PREOPERATIVE DIAGNOSIS: End-stage renal disease, on hemodialysis. POSTOPERATIVE DIAGNOSIS: End-stage renal disease, on hemodialysis. PROCEDURE: Creation of right brachioaxillary arteriovenous graft. SURGEON: Irais Edouard MD. TYPE OF ANESTHESIA: General anesthesia. COMPLICATIONS: No complications. INDICATIONS: Ms. Emma Romero is a 61 years old female patient, multiple medical problems including end-state renal disease. She is on hemodialysis via right IJ catheter. The patient was brought before for creation of the fistula and she had brachiobasilic AV fistula after her superficialization, but the size of the vein was too small and found to be clotted, so we brought here for creation of the graft because there were no adequate veins available. DESCRIPTION OF PROCEDURE: Patient came to the operating room. She was lying in the supine position. She was prepped and draped in the usual sterile fashion. General anesthesia was given for her. We started with the axillary incision over the axillary arch. The incision was carried down to the subcutaneous tissue down to the fascia. We opened it. We continued the dissection until we identified the brachial plexus axillary vein and axillary artery. Dissected the axillary vein and was surrounded by vessel loops and we identified the branches also and we controlled them. Attention moved to the antebrachial area where a clean incision was made on the brachial artery and the incision was carried down to the subcutaneous tissue down to the artery. Dissection of a good segment of the artery, 1.5 to 2 inches, was done and vessel loop was used to control the artery. Between these two incisions, we used the tunneler to make a tunnel between these two incisions and 6-mm graft was inserted through the tunneler and left in the tunnel. We irrigated the area with Bacitracin solution also. We did end-to-side anastomosis between the end of the graft after we cut it to fit the size of the incision in the vein, which was done using 11 blade and extended using Pott scissors. The vein was cut tangentially to fit the venous incision and I used 6-0 Prolene for end-to-side anastomosis between the graft and the vein. After finishing, I checked the anastomosis, it was good and noted bleeding. Attention moved down to the artery. An end-to-side anastomosis was done after we cut the graft to be in a good length just adjacent to the artery and 6-0 Prolene used to finish the end-to-side anastomosis. Before the last couple of stitches, I allowed the backflow of the blood through the graft and I flushed the arterioles, leftover stitch was established, reestablished the flow in the vessel, and the hemostasis secured using Gelfoam. There was no bleeding. We irrigated the wound several times with Bacitracin solution and we closed using 3-0 Vicryl and 4-0 Monocryl for the incision. There was an excellent thrill in the graft. No complications. Patient tolerated the procedure well and transferred to recovery room and after that she will be transferred to the floor to be discharged home from recovery room. Irais Edouard MD
== END 2017-06-03 12:18 | disposition home or self-care (01) ==
LOC: SDS 09:39 → 3RNO 20:59 → SDS 06-03 12:18
PROVIDERS: ATTEND Surgery
DX: I12.0 Hypertensive chronic kidney disease with stage 5 chronic kidney disease or end stage renal disease (principal); N18.6 End stage renal disease; E11.22 Type 2 diabetes mellitus with diabetic chronic kidney disease; Z99.2 Dependence on renal dialysis
CPT/HCPCS: 36415; 36830; 80048; 93005; C1768; J0690; J1170; J1644; J2270; J2370; J2720

== ENCOUNTER 2017-08-25 09:51 | Day surgery (SDC) | payer MEDICARE, MEDICAID ==
[2017-08-21 12:02] VITALS: BMI 22.4
[2017-08-25 10:21] LABS: BASO # 0.06 K/mm3 (0.0-2.0); BASO % 0.8 % (0.0-3.0); EOS # 0.2 (0.0-0.7); EOS % 1.9 % (1.5-5.0); GRAN # 5.3 (1.4-6.5); GRAN % 67.9 % (50.0-68.0); HEMOGLOBIN 12.2 g/dL (12.0-16.0); LYMPH # 1.8 (1.2-3.4); LYMPH % 23.2 % (22.0-35.0); MEAN CELL VOLUME 79.4 fl (80.0-105.0); MEAN CORPUSCULAR HEMOGLOBIN 27.3 pg (25.0-35.0); MEAN CORPUSCULAR HGB CONC 34.4 g/dl (31.0-37.0); MEAN PLATELET VOLUME 8.8 fl (7.0-11.0); MONO # 0.5 (0.1-0.6); MONO % 6.2 % (1.0-6.0); RBC 4.47 10^6/uL (3.5-6.1); RED CELL DISTRIBUTION WIDTH 15.2 % (11.5-14.5); WHITE BLOOD COUNT 7.8 10^3/ul (4.5-11.0)
[2017-08-25 10:30] LABS: CALCIUM 9.7 mg/dL (8.4-10.5)
[2017-08-25 10:32] LABS: INR 0.97 (0.93-1.08); PARTIAL THROMBOPLASTIN TIME 28.6 Seconds (25.1-36.5); PROTHROMBIN TIME 11.1 SECONDS (9.4-12.5)
[2017-08-25] MEDS ORDERED: Lidocaine 2% Inj (20ml) ONE (10:45)
[2017-08-25] MEDS ORDERED: HEPARIN SODIUM/NS 1,000 ML IV ONE (10:46)
[2017-08-25] MEDS ORDERED: Midazolam 2 MG/2 ML VIAL ONE (10:46)
[2017-08-25] MEDS ORDERED: DiphenhydrAMINE 50 mg/ml Inj ONE (11:22)
[2017-08-25 12:32] VITALS: BP 143/70; TEMP 98.6; O2SAT 92
[2017-08-25 13:23] VITALS: PULSE 79; RESP 99
--- NOTE | 2017-08-25 14:18 | VASCULAR ---
PROCEDURE: Removal of tunneled right IJ dialysis catheter. CLINICAL HISTORY: End-stage renal disease. Malfunctioning tunneled right IJ dialysis catheter. Functioning right upper extremity AV access. PHYSICIAN(S): Ismael Boggs M.D. TECHNIQUE: The relative risks and indications of the procedure were explained to the patient and consent obtained. The patient was placed supine on the arteriogram table and the tunneled right IJ dialysis catheter prepped and draped in the usual sterile fashion. Conscious sedation and monitoring were provided throughout the procedure by nurse. 1% Xylocaine was used to anesthetize skin and soft tissues along the tunnel. The tunnel and cuff were bluntly dissected. The catheter was removed and pressure applied at the venous insertion site. A single interrupted suture was placed at the exit site. The patient tolerated the procedure well. IMPRESSION: 1. Removal of the patient's tunneled right IJ dialysis catheter.
== END 2017-08-25 13:50 | disposition home or self-care (01) ==
LOC: SDS 09:51
PROVIDERS: ATTEND Radiology Vascular & Interventional Radiology
DX: T82.41XA Breakdown (mechanical) of vascular dialysis catheter, initial encounter (principal); Y83.8 Other surgical procedures as the cause of abnormal reaction of the patient, or of later complication, without mention of misadventure at the time of the procedure; N18.6 End stage renal disease; I12.0 Hypertensive chronic kidney disease with stage 5 chronic kidney disease or end stage renal disease; E11.22 Type 2 diabetes mellitus with diabetic chronic kidney disease; Z99.2 Dependence on renal dialysis
CPT/HCPCS: 36415; 36589; 80048; 85025; 85610; 85730; 99152; J1200; J1644; J2405; J3010

== ENCOUNTER 2017-10-27 10:42 | Day surgery (SDC) | payer MEDICARE, MEDICAID ==
[2017-10-27] MEDS ORDERED: Midazolam 2 MG/2 ML VIAL ONE ×2 (10:56→11:16)
[2017-10-27] MEDS ORDERED: Lidocaine 2% Inj (20ml) ONE (10:56)
[2017-10-27] MEDS ORDERED: Iodixanol 320 MG/ML 100 ML BOTTLE IV ONE (10:57)
[2017-10-27 11:16] VITALS: BMI 23.4
[2017-10-27 11:33] LABS: INR 0.95 (0.93-1.08); PARTIAL THROMBOPLASTIN TIME 26.6 Seconds (25.1-36.5); PROTHROMBIN TIME 10.9 SECONDS (9.4-12.5)
[2017-10-27 11:37] LABS: HEMOGLOBIN 11.9 g/dL (12.0-16.0); MEAN CELL VOLUME 80.8 fl (80.0-105.0); MEAN CORPUSCULAR HEMOGLOBIN 27.8 pg (25.0-35.0); MEAN CORPUSCULAR HGB CONC 34.4 g/dl (31.0-37.0); MEAN PLATELET VOLUME 9.3 fl (7.0-11.0); RBC 4.28 10^6/uL (3.5-6.1); RED CELL DISTRIBUTION WIDTH 15.1 % (11.5-14.5); WHITE BLOOD COUNT 7.6 10^3/ul (4.5-11.0)
[2017-10-27 12:01] LABS: CALCIUM 9.3 mg/dL (8.4-10.5)
[2017-10-27] MEDS ORDERED: Nitroglycerin 50mg in D5W 50 MG/250 ML BOTTLE IV ONE (12:02)
[2017-10-27 13:52] VITALS: TEMP 98
[2017-10-27 14:24] VITALS: BP 169/74; PULSE 82; RESP 18; O2SAT 99
--- NOTE | 2017-10-27 18:49 | VASCULAR ---
PROCEDURE: 1. Right upper extremity AV graft angiogram 2. Venous anastomosis angioplasty 3. Right innominate vein angioplasty HISTORY: End-stage renal disease. Malfunctioning AV axis. ? Thrombosis. PHYSICIAN(S): Ismael Boggs MD. TECHNIQUE: The relative risks and indications of the procedure were explained to the patient and consent obtained. The patient was placed supine on the angiography table and the right arm prepped and draped in usual sterile fashion. Conscious sedation and monitoring provided throughout the procedure by a nurse. Initially sonography was performed of the right AV graft arterial anastomosis. Arterial anastomosis appears widely patent. Under direct ultrasound guidance, the proximal right graft was punctured with a micropuncture set. 5 Maldivian catheter was placed. An overlapping right upper extremity AV graft angiogram was performed. The blood pressure cuff was applied and reflux of the anastomosis performed. Exchange is made for a 6 Maldivian sheath. The venous anastomosis stenosis and right innominate vein stenosis was crossed with an angled Glidewire. A 0.035 Osman wire was placed the IVC. The venous anastomosis was dilated with 7 and 8 mm balloons. The right innominate vein was dilated with a 10 mm balloon. A good angiographic result was obtained. The graft is located somewhat deep in the subcutaneous tissues and it was marked at the end of the case with ultrasound. The patient tolerated the procedure well. FINDINGS: Right upper extremity AV graft is patent. The arterial anastomosis is normal. There is a 70 percent stenosis of the venous anastomosis. This was successfully dilated with a 7 and 8 mm balloon. No stent was required. There is a tapered narrowing of the right innominate vein. This was dilated with a 10 mm balloon. IMPRESSION: 1. Successful PEDORTHIST of the venous anastomosis with 7 and 8 mm balloons. 2. Successful PEDORTHIST of the right innominate vein with 10 mm balloon. 3. The AV graft is somewhat deep in the subcutaneous tissues. It was marked with ultrasound guidance
== END 2017-10-27 14:27 | disposition home or self-care (01) ==
LOC: SDSVAS 10:42
PROVIDERS: ATTEND Radiology Vascular & Interventional Radiology
DX: T82.318A Breakdown (mechanical) of other vascular grafts, initial encounter (principal); I13.2 Hypertensive heart and chronic kidney disease with heart failure and with stage 5 chronic kidney disease, or end stage renal disease; N18.6 End stage renal disease; E11.22 Type 2 diabetes mellitus with diabetic chronic kidney disease; I50.9 Heart failure, unspecified; D64.9 Anemia, unspecified; E78.5 Hyperlipidemia, unspecified; Z88.8 Allergy status to other drugs, medicaments and biological substances; Z91.048 Other nonmedicinal substance allergy status
CPT/HCPCS: 36415; 36902; 36907; 80048; 85027; 85610; 85730; 99152; 99153; C1725 ×3; C1760; C1769 ×2; C1894; J0690; J1644; J2250; J2405; J2997; J3010; Q9967

== ENCOUNTER 2017-10-29 09:41 | Day surgery (SDC) | payer MEDICARE, MEDICAID ==
[2017-10-29 10:31] VITALS: BMI 24.2
[2017-10-29] MEDS ORDERED: Lidocaine 2% Inj (20ml) ONE (10:55)
[2017-10-29] MEDS ORDERED: Midazolam 2 MG/2 ML VIAL ONE ×2 (10:55→11:12)
[2017-10-29] MEDS ORDERED: Iodixanol 320 MG/ML 100 ML BOTTLE IV ONE (10:56)
[2017-10-29] MEDS ORDERED: Nitroglycerin 50mg in D5W 0 MG/0 ML BOTTLE IV ONE (10:56)
[2017-10-29 14:10] VITALS: RESP 18; TEMP 98.2
[2017-10-29 14:15] VITALS: BP 153/71; PULSE 91; O2SAT 97
--- NOTE | 2017-10-29 15:35 | VASCULAR ---
PROCEDURE: 1. Right upper extremity AV graft angiogram HISTORY: End-stage renal disease. Malfunctioning AV access. Recent venous angioplasty. ? Subacute thrombosis PHYSICIAN(S): Ismael Boggs MD. TECHNIQUE: The relative risks and indications of the procedure were explained to the patient and consent obtained. The patient was placed supine on the angiography table and the right arm prepped and draped in usual sterile fashion. Conscious sedation and monitoring provided throughout the procedure by a nurse. The right arm AV graft was punctured with ultrasound guidance above the elbow in an antegrade direction with a micropuncture set. A 5 Irish catheter was placed. An overlapping right upper extremity AV fistula angiogram was performed. Central venous imaging was obtained. The catheter was removed and hemostasis obtained. FINDINGS: The patient's right upper arm AV graft is widely patent. Brisk flow is seen. The venous anastomosis is widely patent post angioplasty. The central veins are patent. The arterial anastomosis was not evaluated. IMPRESSION: 1. Widely patent right upper extremity AV graft.
== END 2017-10-29 14:25 | disposition home or self-care (01) ==
LOC: SDSVAS 09:41
PROVIDERS: ATTEND Radiology Vascular & Interventional Radiology
DX: T82.318A Breakdown (mechanical) of other vascular grafts, initial encounter (principal); N18.6 End stage renal disease; Y83.2 Surgical operation with anastomosis, bypass or graft as the cause of abnormal reaction of the patient, or of later complication, without mention of misadventure at the time of the procedure
CPT/HCPCS: 36901; 99152; J1644; J2250; J2405; J3010; Q9967